=== PATIENT | male | born 1955 | race Caucasian/White ===

== ENCOUNTER 2018-07-01 14:42 | Inpatient (IN) | payer OTHER ==
--- NOTE | 2018-07-01 15:09 | PDOC ---
Rapid Medical Evaluation Time Seen by Provider: 07/01/18 14:58 Medical Evaluation: Allergies Allergy/AdvReac Type Severity Reaction Status Date / Time Calcium Channel Blocking Allergy Severe Swelling Verified 07/01/18 14:58 Agent Dilt hydralazine Allergy Severe Swelling Verified 07/01/18 14:58 strawberry Allergy Severe Swelling Verified 07/01/18 14:58 Vital Signs Temp Pulse Resp BP Pulse Ox 97.7 F 89 18 220/108 H 77 L 07/01/18 14:51 07/01/18 14:51 07/01/18 14:51 07/01/18 14:51 07/01/18 14:51 07/01/18 15:05 Pt presents to the ED with c/o: sob, lower ext edema, fina chest aching x 2 days , No chf, anemia, GIB, or copd hx Pt on brief exam: noted dyspnea, decreased BS to rt base otherwise LCTA, pale conjunctiva, 3+ pitting edema fina, o2 sat 79% on RA Pt ordered for: o2 NRB, went directly to main ED pt to proceed to the ED Discharge Disposition - Diagnosis Dyspnea - Referrals - Patient Instructions - Post Discharge Activity
[2018-07-01] MEDS ORDERED: FUROSEMIDE 40 MG/4 ML INJECTABLE VIAL IVPUSH ONE (15:17)
[2018-07-01] MEDS ORDERED: NITROGLYCERIN SUBLINGUAL 1/150 0.4 MG TAB SL ONE (15:17)
[2018-07-01] MEDS ORDERED: FUROSEMIDE 40 MG/4 ML INJECTABLE VIAL ONE (15:21)
[2018-07-01] MEDS ORDERED: NITROGLYCERIN SUBLINGUAL 1/150 0.4 MG TAB ONE (15:21)
[2018-07-01] MEDS ORDERED: NITROGLYCERIN 25MG/D5W 250ML 25 MG/250 ML ML IVPB ONE (15:22)
[2018-07-01] MEDS ORDERED: NITROGLYCERIN 25MG/D5W 250ML 25 MG/250 ML ML IVPB SCH (15:30)
--- NOTE | 2018-07-01 15:40 | PDOC ---
History of Present Illness - General Chief Complaint: Shortness of Breath Stated Complaint: Shortness of Breath Time Seen by Provider: 07/01/18 14:58 History Source: Patient, Family Exam Limitations: No Limitations - History of Present Illness Initial Comments: 07/01/18 15:40 62M with a PMH of HTN, DM, on lasix (w/o CHF diagnosis) who presents to the ED complaining of SOB. The patient states that he's had worsening SOB for 2 days with orthopnea and b/l LE edema. He also admits to chest pain that is across his diaphragm. He cannot provide any more information regarding the chest pain. He denies fever, chills, nausea, vomiting, abdominal pain. Past History - Past Medical History Allergies/Adverse Reactions: Allergies Allergy/AdvReac Type Severity Reaction Status Date / Time Calcium Channel Blocking Allergy Severe Swelling Verified 07/01/18 17:16 Agent Dilt hydralazine Allergy Severe Swelling Verified 07/01/18 17:16 strawberry Allergy Severe Swelling Verified 07/01/18 17:16 Home Medications: Ambulatory Orders Aspirin 81 mg PO DAILY 07/01/18 Clopidogrel Bisulfate [Clopidogrel] 75 mg PO DAILY 07/01/18 Finasteride 5 mg PO DAILY 07/01/18 Furosemide [Lasix] 40 mg PO DAILY 07/01/18 Glimepiride 1 mg PO DAILY 07/01/18 Isosorbide Mononitrate [Isosorbide Mononitrate ER] 60 mg PO DAILY 07/01/18 Lisinopril 5 mg PO DAILY 07/01/18 Anemia: Yes COPD: No Diabetes: Yes HTN: Yes Other medical history: reflex dystrophy - Immunization History Immunization Up to Date: Yes - Suicide/Smoking/Psychosocial Hx Smoking History: Former smoker Have you smoked in the past 12 months: No Information on smoking cessation initiated: No Hx Alcohol Use: No Drug/Substance Use Hx: No Review of Systems - Review of Systems Able to Perform ROS?: Yes Comments:: 07/01/18 15:58 GENERAL/CONSTITUTIONAL: No fever or chills. No weakness. HEAD, EYES, EARS, NOSE AND THROAT: No change in vision. No ear pain or discharge. No sore throat. CARDIOVASCULAR: No chest pain, palpitations, or lightheadedness. RESPIRATORY: No cough, wheezing, shortness of breath, or hemoptysis. GASTROINTESTINAL: No nausea, vomiting, diarrhea, constipation, or abdominal pain. GENITOURINARY: No dysuria, frequency, hematuria, or change in urination. MUSCULOSKELETAL: No joint or muscle swelling or pain. No neck or back pain. SKIN: No rash or lesions. NEUROLOGIC: No headache, numbness, tingling, focal weakness, loss of consciousness, or change in strength/sensation. Is the patient limited Mosotho proficient: No *Physical Exam - Vital Signs Last Vital Signs Temp Pulse Resp BP Pulse Ox 97.7 F 89 18 220/108 H 77 L 07/01/18 14:51 07/01/18 14:51 07/01/18 14:51 07/01/18 14:51 07/01/18 14:51 - Physical Exam Comments: 07/01/18 17:13 GENERAL: Well developed, well nourished. Awake and alert. Mildly uncomfortable appearing. HEENT: Normocephalic, atraumatic. Hearing grossly normal. Moist mucous membranes. PERRLA, EOMI. No conjunctival pallor. Sclera are non-icteric. NECK: Supple. Full ROM. No JVD. CARDIOVASCULAR: Regular rate and rhythm. No murmurs, rubs, or gallops. PULMONARY: Speaking in 4-5 word sentences. Decreased lung sounds in b/l lobes. Crackles in L lung. ABDOMINAL: Soft. Non-tender. Non-distended. No rebound or guarding. MUSCULOSKELETAL: Normal range of motion at all joints. No bony deformities or tenderness. EXTREMITIES: No cyanosis. No clubbing. 4+ pitting edema in b/l LE. No calf tenderness or swelling. SKIN: Warm and dry. Normal capillary refill. No rashes. No jaundice. NEUROLOGICAL: Alert, awake, appropriate. Cranial nerves 2-12 intact. Normal speech. Gait is normal without ataxia. PSYCHIATRIC: Cooperative. Good eye contact. Appropriate mood and affect. ED Treatment Course - LABORATORY CBC & Chemistry Diagram: 07/01/18 15:25 07/01/18 15:25 - RADIOLOGY Radiology Studies Ordered: Category Date Time Status CHEST X-RAY PORTABLE* [RAD] Stat Radiology 07/01/18 15:17 Ordered - Medications Given in the ED: ED Medications Discontinued Medications Generic Name Dose Route Start Last Admin Trade Name Freq PRN Reason Stop Dose Admin Furosemide 80 mg 07/01/18 15:17 07/01/18 15:30 Lasix Injection - IVPUSH 07/01/18 15:18 80 mg ONCE ONE Administration Nitroglycerin 0.8 mg 07/01/18 15:17 07/01/18 15:30 Nitrostat - SL 07/01/18 15:18 0.8 mg ONCE ONE Administration Medical Decision Making - Medical Decision Making 07/01/18 16:41 62M with a PMH of HTN and DM, also on lasix, who presents with SOB, decreased lung sounds in b/l lung sousa with b/l lower extremity swelling and HTNsive BP. Pt brought into room 10 immediately, Bipap ordered, lasix and nitro given. Pt currently comfortable on nitro drip with BP improving. POCUS showed b/l lung sliding w/ b-lines and fluid bilaterally in lower lung sousa. 07/01/18 16:44 Case d/w Dr. Melgoza, cardiology, who agrees with plan. Dr. Parr paged for admission. 07/01/18 17:[address] Parr for admission. Titrating nitro to adequate BP. *DC/Admit/Observation/Transfer Diagnosis at time of Disposition: Dyspnea Qualifiers: Dyspnea type: other forms of dyspnea Qualified Code(s): R06.09 - Other forms of dyspnea CHF (congestive heart failure) Qualifiers: Heart failure type: other Qualified Code(s): I50.9 - Heart failure, unspecified - Discharge Dispostion Condition at time of disposition: Guarded Decision to Admit order: Yes - Referrals - Patient Instructions - Post Discharge Activity
[2018-07-01 15:45] LABS: BASO % 0.5 % (0-2.0); EOS % 1.4 % (0-4.5); HEMATOCRIT 32.3 % (35.4-49); HEMOGLOBIN 11.1 GM/dL (11.7-16.9); LYMPH % 8.2 % (8-40); MCH 30.1 pg (25.7-33.7); MCHC 34.5 g/dl (32.0-35.9); MEAN CELL VOLUME 87.3 fl (80-96); MEAN PLT VOLUME 8.4 fl (7.5-11.1); MONO % 4.4 % (3.8-10.2); NEUT % 85.5 % (42.8-82.8); PLATELET COUNT 305 K/MM3 (134-434); RDW 14.6 % (11.9-15.9); WHITE BLOOD COUNT 10.6 K/mm3 (4.0-10.0)
--- NOTE | 2018-07-01 15:59 | PDOC ---
History of Present Illness - General Chief Complaint: Shortness of Breath Stated Complaint: Shortness of Breath Time Seen by Provider: 07/01/18 14:58 History Source: Patient, Family Past History - Past Medical History Allergies/Adverse Reactions: Allergies Allergy/AdvReac Type Severity Reaction Status Date / Time Calcium Channel Blocking Allergy Severe Swelling Verified 07/01/18 14:58 Agent Dilt hydralazine Allergy Severe Swelling Verified 07/01/18 14:58 strawberry Allergy Severe Swelling Verified 07/01/18 14:58 Anemia: Yes COPD: No Diabetes: Yes HTN: Yes Other medical history: reflex dystrophy - Immunization History Immunization Up to Date: Yes - Suicide/Smoking/Psychosocial Hx Smoking History: Former smoker Have you smoked in the past 12 months: No Information on smoking cessation initiated: No Hx Alcohol Use: No Drug/Substance Use Hx: No *Physical Exam - Vital Signs Last Vital Signs Temp Pulse Resp BP Pulse Ox 97.7 F 89 18 220/108 H 96 07/01/18 14:51 07/01/18 14:51 07/01/18 14:51 07/01/18 14:51 07/01/18 15:00 ED Treatment Course - LABORATORY CBC & Chemistry Diagram: 07/01/18 15:25 07/01/18 15:25 - ADDITIONAL ORDERS Additional order review: 07/01/18 15:25 RBC 3.70 L MCV 87.3 MCHC 34.5 RDW 14.6 MPV 8.4 Neutrophils % 85.5 H Lymphocytes % 8.2 Monocytes % 4.4 Eosinophils % 1.4 Basophils % 0.5 - Medications Given in the ED: ED Medications Discontinued Medications Generic Name Dose Route Start Last Admin Trade Name Anthony PRN Reason Stop Dose Admin Furosemide 80 mg 07/01/18 15:17 07/01/18 15:30 Lasix Injection - IVPUSH 07/01/18 15:18 80 mg ONCE ONE Administration Nitroglycerin 0.8 mg 07/01/18 15:17 07/01/18 15:30 Nitrostat - SL 07/01/18 15:18 0.8 mg ONCE ONE Administration Medical Decision Making - Medical Decision Making 07/01/18 15:56 62-year-old male presents with 3 days of increasing shortness of breath. Patient does not have a primary care doctor, but does go to [facility]. He was admitted. We have asked the hospital in April for emergent hypertensive episodes. Upon arrival, the patient had respiratory distress and was immediately placed on the BiPAP, nitroglycerin drip was started. He was given IV diuretics. 07/01/18 15:59 *DC/Admit/Observation/Transfer Diagnosis at time of Disposition: Dyspnea - Referrals - Patient Instructions - Post Discharge Activity
[2018-07-01 16:03] LABS: INR 1.13 (0.83-1.09); PROTHROMBIN TIME (PATIENT) 13.4 SEC (9.7-13.0)
--- NOTE | 2018-07-01 16:10 | PDOC ---
*Physical Exam - Vital Signs Last Vital Signs Temp Pulse Resp BP Pulse Ox 97.7 F 89 18 220/108 H 96 07/01/18 14:51 07/01/18 14:51 07/01/18 14:51 07/01/18 14:51 07/01/18 15:00 ED Treatment Course - LABORATORY CBC & Chemistry Diagram: 07/01/18 15:25 07/01/18 15:25 - ADDITIONAL ORDERS Additional order review: 07/01/18 15:25 RBC 3.70 L MCV 87.3 MCHC 34.5 RDW 14.6 MPV 8.4 Neutrophils % 85.5 H Lymphocytes % 8.2 Monocytes % 4.4 Eosinophils % 1.4 Basophils % 0.5 - Medications Given in the ED: ED Medications Discontinued Medications Generic Name Dose Route Start Last Admin Trade Name Joaquinq PRN Reason Stop Dose Admin Furosemide 80 mg 07/01/18 15:17 07/01/18 15:30 Lasix Injection - IVPUSH 07/01/18 15:18 80 mg ONCE ONE Administration Nitroglycerin 0.8 mg 07/01/18 15:17 07/01/18 15:30 Nitrostat - SL 07/01/18 15:18 0.8 mg ONCE ONE Administration Medical Decision Making - Medical Decision Making 07/01/18 16:30 62-year-old male presents with congestive heart failure and was placed on BiPAP upon arrival. He received IV diuretics and will be admitted. Past medical history chronic venous stasis, CHF, pleural effusion controlled hypertension. Plan continue BiPAP, posible ntg gtt for BP control,chest x-ray, cbc, chemistries, cardiac enzymes, BNP and admission 07/01/18 17:29 troponin is 0.27, normal have to be trended. BNP is greater than 10,000. In reviewing his chemistries he has renal insufficiency, BUN of 36, creatinine 1.4, hyperglycemia 07/01/18 17:39 diagnosis : chf,hypertensive urgency,anemia,renal insufficiency,chronic venous stasis ,diabetes 07/01/18 17:47 pt's BP is improving and is now 208/[address]r *DC/Admit/Observation/Transfer Diagnosis at time of Disposition: Dyspnea - Referrals - Patient Instructions - Post Discharge Activity
--- NOTE | 2018-07-01 16:10 | PDOC ---
Documentation entered by Eliza Elizalde SCRIBE, acting as scribe for Patrick Mcelroy MD. Patrick Mcelroy MD: This documentation has been prepared by the Fide kenny Daisy, SCRIBE, under my direction and personally reviewed by me in its entirety. I confirm that the documentation accurately reflects all work, treatment, procedures, and medical decision making performed by me. Attending Attestation - Resident Resident Name: [email or web address] - ED Attending Attestation I have performed the following: I have examined & evaluated the patient, The case was reviewed & discussed with the resident, I agree w/resident's findings & plan - HPI HPI: 07/01/18 15:36 62-year-old male with history of CHF presents with progressive dyspnea and cough over the weekend. no cp but reports epigastric discomfort, none currently. compliant with meds, denies f/c. - Physicial Exam PE: 07/01/18 15:37 Hypertensive at triage, hypoxic Otherwise seated upright in stretcher, speaking in half sentences, well- appearing despite his vitals Heart is regular, 2/6 systolic ejection murmur Right basilar crackles, distant breath sounds throughout, no wheezing Morbidly obese, no abdominal tenderness Chronic bilateral leg edema with venous stasis changes - Critical Care Time Total Critical Care Time: 45 Critical Care Statement: The care of this patient involved high complexity decision making to prevent further life threatening deterioration of the patient 's condition and/or to evaluate & treat vital organ system(s) failure or risk of failure. - Medical Decision Making 07/01/18 15:37 62-year-old male with history of CHF presents with progressive pulmonary edema over the last 2 days, hypertensive and hypoxic. Seen immediately upon arrival, IV access obtained, supplemental oxygen provided , IV diuresis BiPAP for respiratory support nitro drip Labs, stat EKG, chest x-ray Admission to telemetry
[2018-07-01 16:14] LABS: VENOUS PC02 41.9 mmHg (41-51); VENOUS PH 7.34 (7.31-7.41); VENOUS PO2 37.3 mmHg (30-40)
[2018-07-01 16:23] LABS: ALBUMIN 3.3 g/dl (3.4-5.0); ALK PHOS 97 U/L (45-117); ANION GAP 6 MMOL/L (8-16); BILIRUBIN,TOTAL 0.8 mg/dL (0.2-1); BLOOD UREA NITROGEN 36 mg/dL (7-18); CALCIUM 8.5 mg/dL (8.5-10.1); CHLORIDE 108 mmol/L (98-107); CO2 23 mmol/L (21-32); CREATININE 1.4 mg/dL (0.55-1.3); GLUCOSE,RANDOM 211 mg/dL (74-106); MAGNESIUM 2.2 mg/dL (1.8-2.4); N-TERMINAL BNP 10294.4 pg/ml (5-125); POTASSIUM 4.4 mmol/L (3.5-5.1); SGOT/AST 28 U/L (15-37); SGPT/ALT 21 U/L (13-61); SODIUM 137 mmol/L (136-145); TOT PROT 6.5 g/dl (6.4-8.2)
--- NOTE | 2018-07-01 18:48 | HP ---
Admitting History and Physical - Primary Care Physician PCP: Isael Parr - Admission History of Present Illness: 62M with a PMH of HTN, DM, previous stroke without residual deficits who presents to the ED complaining of progressive SOB, MCNEAL, orthopnea, chest tightness and b/l LE edema without near or true syncope, palpitations. Found to be hypertensive, hypoxic and congestion on CXR. He reports being instructed to stop labetolol due to LE edema and URI symptoms, otherwise reports diet and medication compliance, denies NSAID use. Placed on bipap, started IV diuresis and placed on NTG gtt. He usually sees [facility] for f/u. 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 Cardiovascular: Yes: HTN Endocrine: Yes: Diabetes Mellitus - Smoking History Smoking history: Former smoker Have you smoked in the past 12 months: No - Alcohol/Substance Use Hx Alcohol Use: No Home Medications - Allergies Allergies/Adverse Reactions: Allergies Allergy/AdvReac Type Severity Reaction Status Date / Time Calcium Channel Blocking Allergy Severe Swelling Verified 07/01/18 17:16 Agent Dilt hydralazine Allergy Severe Swelling Verified 07/01/18 17:16 strawberry Allergy Severe Swelling Verified 07/01/18 17:16 - Home Medications Home Medications: Ambulatory Orders Aspirin 81 mg PO DAILY 07/01/18 Clopidogrel Bisulfate [Clopidogrel] 75 mg PO DAILY 07/01/18 Finasteride 5 mg PO DAILY 07/01/18 Furosemide [Lasix] 40 mg PO DAILY 07/01/18 Glimepiride 1 mg PO DAILY 07/01/18 Isosorbide Mononitrate [Isosorbide Mononitrate ER] 60 mg PO DAILY 07/01/18 Lisinopril 5 mg PO DAILY 07/01/18 Clonidine HCl [Catapres] 0.2 mg PO BID 07/02/18 Physical Examination Vital Signs: Vital Signs Temperature 98.5 F 07/01/18 18:10 Pulse Rate 64 07/01/18 18:10 Respiratory Rate 07/01/18 18:10 Blood Pressure 198/93 H 07/01/18 18:10 O2 Sat by Pulse Oximetry (%) 100 07/01/18 18:10 Constitutional: Yes: No Distress HENT: Yes: Atraumatic Neck: Yes: Supple Cardiovascular: Yes: Regular Rate and Rhythm Respiratory: Yes: Rhonchi, Wheezes Gastrointestinal: Yes: Normal Bowel Sounds Extremities: Yes: WNL Edema: Yes Edema: LLE: 3+, RLE: 3+ Neurological: Yes: Alert, Oriented Labs: CBC, BMP 07/01/18 15:25 07/01/18 15:25 Imaging - Results X-ray: Report Reviewed Problem List - Problems (1) Dyspnea Assessment/Plan: on diuretics monitor renal functions Code(s): R06.00 - DYSPNEA, UNSPECIFIED (2) Acute diastolic (congestive) heart failure Assessment/Plan: continue [facility] cardiology on board Code(s): I50.31 - ACUTE DIASTOLIC (CONGESTIVE) HEART FAILURE (3) CKD (chronic kidney disease) Assessment/Plan: monitor renal consult reviewed Code(s): N18.9 - CHRONIC KIDNEY DISEASE, UNSPECIFIED Qualifiers: Chronic kidney disease stage: stage 2 (mild) Qualified Code(s): N18.2 - Chronic kidney disease, stage 2 (mild) (4) Type 2 diabetes mellitus Assessment/Plan: on meds monitor bgms Code(s): E11.9 - TYPE 2 DIABETES MELLITUS WITHOUT COMPLICATIONS Qualifiers: Diabetes mellitus clinical researcher insulin use: without clinical researcher use (5) Hypertensive emergency Assessment/Plan: on meds monitor Code(s): I16.1 - HYPERTENSIVE EMERGENCY (6) Subendocardial ischemia Assessment/Plan: fu troponins on tele Code(s): I24.8 - OTHER FORMS OF ACUTE ISCHEMIC HEART DISEASE Assessment/Plan Laboratory Tests 07/01/18 07/01/18 07/01/18 15:25 15:25 15:25 WBC 10.6 H RBC 3.70 L Hgb 11.1 L Hct 32.3 L MCV 87.3 MCH 30.1 MCHC 34.5 RDW 14.6 Plt Count 305 MPV 8.4 Absolute Neuts (auto) 9.0 H Neutrophils % 85.5 H Lymphocytes % 8.2 Monocytes % 4.4 Eosinophils % 1.4 Basophils % 0.5 Nucleated RBC % 0 PT with INR 13.40 H INR 1.13 H VBG pH 7.34 POC VBG pCO2 41.9 POC VBG pO2 37.3 VBG HCO3 21.9 L VBG O2 Sat (Joanne) 63.9 L VBG Base Excess -3.2 L Sodium Potassium Chloride Carbon Dioxide Anion Gap BUN Creatinine Creat Clearance w eGFR Random Glucose Calcium Magnesium Total Bilirubin AST ALT Alkaline Phosphatase Creatine Kinase Creatine Kinase Index CK-MB (CK-2) Troponin I B-Natriuretic Peptide Total Protein Albumin 07/01/18 15:25 WBC RBC Hgb Hct MCV MCH MCHC RDW Plt Count MPV Absolute Neuts (auto) Neutrophils % Lymphocytes % Monocytes % Eosinophils % Basophils % Nucleated RBC % PT with INR INR VBG pH POC VBG pCO2 POC VBG pO2 VBG HCO3 VBG O2 Sat (Joanne) VBG Base Excess Sodium 137 Potassium 4.4 Chloride 108 H Carbon Dioxide 23 Anion Gap 6 L BUN 36 H Creatinine 1.4 H Creat Clearance w eGFR 51.35 Random Glucose 211 H Calcium 8.5 Magnesium 2.2 Total Bilirubin 0.8 AST 28 ALT 21 Alkaline Phosphatase 97 Creatine Kinase 526 H Creatine Kinase Index 2.0 CK-MB (CK-2) 10.7 H Troponin I 0.27 H B-Natriuretic Peptide 24837.4 H Total Protein 6.5 Albumin 3.3 L Active Medications Generic Name Dose Route Start Last Admin Trade Name Anthony PRN Reason Stop Dose Admin Nitroglycerin/Dextrose 25 mg in 250 mls @ 6 mls/hr 07/01/18 15:30 07/01/18 17 :18 Nitroglycerin 25mg/D5w 250ml IVPB 41.66 mcg/min TITR CHERI 25 mls/hr Titration 10 MCG/MIN Active Medications Generic Name Dose Route Start Last Admin Trade Name Anthony PRN Reason Stop Dose Admin Aspirin 81 mg 07/02/18 10:00 07/02/18 10:15 Asa - PO 81 mg DAILY CHERI Administration Carvedilol 25 mg 07/02/18 10:00 07/02/18 10:15 Coreg - PO 25 mg BID CHERI Administration Clonidine 0.1 mg 07/02/18 10:00 07/02/18 10:15 Catapres - PO 0.1 mg BID CHERI Administration Clopidogrel Bisulfate 75 mg 07/02/18 10:00 07/02/18 10:15 Plavix - PO 75 mg DAILY CHERI Administration Finasteride 5 mg 07/02/18 10:00 07/02/18 10:15 Proscar - PO 5 mg DAILY CHERI Administration Furosemide 40 mg 07/02/18 06:00 07/02/18 13:43 Lasix Injection - IVPUSH 40 mg BIDLASIX CHERI Administration Glimepiride 1 mg 07/02/18 07:00 07/02/18 06:56 Amaryl - PO 1 mg DAILY@0700 CHERI Administration Heparin Sodium (Porcine) 5,000 unit 07/01/18 22:00 07/02/18 10:15 Heparin - SQ 5,000 unit BID CHERI Administration Isosorbide Mononitrate 60 mg 07/02/18 10:00 07/02/18 10:15 Imdur - PO 60 mg DAILY CHERI Administration Valsartan 80 mg 07/02/18 10:00 07/02/18 10:15 Diovan - PO 80 mg BID CHERI Administration
--- NOTE | 2018-07-01 19:01 | CON.CARD ---
Consult Consult Specialty:: Cardiology Referred by:: Isael Parr MD Reason for Consultation:: Acute diastolic heart failure - History of Present Illness Chief Complaint: Dyspnea History of Present Illness: 62M with a PMH of HTN, DM, previous stroke without residual deficits who presents to the ED complaining of progressive SOB, MCNEAL, orthopnea, chest tightness and b/l LE edema without near or true syncope, palpitations. Found to be hypertensive, hypoxic and congestion on CXR. He reports being instructed to stop labetolol due to LE edema and URI symptoms, otherwise reports diet and medication compliance, denies NSAID use. Placed on bipap, started IV diuresis and placed on NTG gtt. He usually sees [facility] for f/u. - History Source History Provided By: Patient Limitations to Obtaining History: No Limitations - Alcohol/Substance Use Hx Alcohol Use: No - Smoking History Smoking history: Former smoker Have you smoked in the past 12 months: No Home Medications - Allergies Allergies/Adverse Reactions: Allergies Allergy/AdvReac Type Severity Reaction Status Date / Time Calcium Channel Blocking Allergy Severe Swelling Verified 07/01/18 17:16 Agent Dilt hydralazine Allergy Severe Swelling Verified 07/01/18 17:16 strawberry Allergy Severe Swelling Verified 07/01/18 17:16 - Home Medications Home Medications: Ambulatory Orders Aspirin 81 mg PO DAILY 07/01/18 Clopidogrel Bisulfate [Clopidogrel] 75 mg PO DAILY 07/01/18 Finasteride 5 mg PO DAILY 07/01/18 Furosemide [Lasix] 40 mg PO DAILY 07/01/18 Glimepiride 1 mg PO DAILY 07/01/18 Isosorbide Mononitrate [Isosorbide Mononitrate ER] 60 mg PO DAILY 07/01/18 Lisinopril 5 mg PO DAILY 07/01/18 Review of Systems - Review of Systems Cardiovascular: reports: Edema, Shortness of Breath Respiratory: reports: Exercise Intolerance, Orthopnea, SOB, SOB on Exertion Vital Signs: Vital Signs Temperature 98.5 F 07/01/18 18:10 Pulse Rate 64 07/01/18 18:10 Respiratory Rate 07/01/18 18:10 Blood Pressure 198/93 H 07/01/18 18:10 O2 Sat by Pulse Oximetry (%) 100 07/01/18 18:10 Constitutional: Yes: No Distress, Calm Neck: Yes: Supple Respiratory: Yes: Regular, Diminished, On BiPap, Rales Gastrointestinal: Yes: Normal Bowel Sounds, Soft, Abdomen, Obese Cardiovascular: Yes: Regular Rate and Rhythm JVD: No Carotid Bruit: No Heart Sounds: Yes: S1, S2 Murmur: Yes: Systolic Murmur, Grade 2 Edema: Yes Edema: LLE: 2+, RLE: 2+ Integumentary: Yes: Venous Stasis Changes - Other Data Labs, Other Data: CBC, BMP 07/01/18 15:25 07/01/18 15:25 INR, PTT INR 1.13 (0.83-1.09) H 07/01/18 15:25 Troponin, BNP 07/01/18 15:25 Troponin I 0.27 H B-Natriuretic Peptide 63472.4 H Troponin, BNP 07/01/18 15:25 Troponin I 0.27 H B-Natriuretic Peptide 00870.4 H NSR @ [address] 1[address] deg AVB Imaging - Results Chest X-ray: Report Reviewed (Congestion) Problem List - Problems (1) Acute diastolic (congestive) heart failure Code(s): I50.31 - ACUTE DIASTOLIC (CONGESTIVE) HEART FAILURE (2) Hypertensive emergency Code(s): I16.1 - HYPERTENSIVE EMERGENCY (3) Subendocardial ischemia Code(s): I24.8 - OTHER FORMS OF ACUTE ISCHEMIC HEART DISEASE (4) Type 2 diabetes mellitus Code(s): E11.9 - TYPE 2 DIABETES MELLITUS WITHOUT COMPLICATIONS Qualifiers: 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 Acute hypoxic respiratory failure referable to 2. Acute diastolic heart failure with subendocardial ischemic injury 3. Hypertensive emergency 4. Type 2 DM 5. H/o stroke 6. CKD P:1. IV diuresis with monitor diuretic response, renal fxn and electrolytes 2. Echocardiogram to assess ventricular and valve fxnm check TSH, lipid panel, Ha1c, trend troponins to document peak 3. Continue ASA 81 qd, lisinopril 5 qd, Plavix 75 qd, Imdur 60 qd, resume labetolol 200 bid with uptitration as hemodynamics tolerate, wean off NTG gtt 4. Thank you for consultative opportunity
[2018-07-01] MEDS ORDERED: LISINOPRIL 5 MG TABLET (FP) PO SCH (19:30)
[2018-07-01] MEDS ORDERED: LISINOPRIL 5 MG TABLET (FP) ONE (19:49)
[2018-07-01] MEDS ORDERED: LABETALOL HCL 200 MG TABLET (FP) PO SCH (22:00)
[2018-07-02] MEDS: HEPARIN NA (PORCINE) 5,000 UNITS/ML 1ML VIAL SQ SCH ×3 (00:21→21:27)
[2018-07-02] MEDS ORDERED: LABETALOL HCL 200 MG TABLET (FP) PO ONE (03:00)
[2018-07-02] MEDS ORDERED: LISINOPRIL 10 MG TABLET (FP) PO ONE (03:00)
[2018-07-02] MEDS ORDERED: cloNIDine HCL 0.1 MG TABLET PO ONE (04:15)
[2018-07-02] MEDS ORDERED: PT OWN MED DRAWER 7, Y5N ONE (05:36)
[2018-07-02] MEDS: GLIMEPIRIDE 1 MG TABLET (FP) PO SCH (06:56)
[2018-07-02] MEDS: FUROSEMIDE 40 MG/4 ML INJECTABLE VIAL IVPUSH SCH ×2 (06:56→13:43)
[2018-07-02 07:40] LABS: BASO % 0.6 % (0-2.0); EOS % 1.8 % (0-4.5); HEMATOCRIT 28.3 % (35.4-49); HEMOGLOBIN 9.8 GM/dL (11.7-16.9); MCH 30.2 pg (25.7-33.7); MCHC 34.8 g/dl (32.0-35.9); MEAN PLT VOLUME 8.4 fl (7.5-11.1); MONO % 6.5 % (3.8-10.2); NEUT % 77.1 % (42.8-82.8); PLATELET COUNT 280 K/MM3 (134-434); RBC 3.25 M/mm3 (4.00-5.60); RDW 14.4 % (11.9-15.9)
[2018-07-02 07:59] LABS: ALBUMIN 3.1 g/dl (3.4-5.0); ALK PHOS 84 U/L (45-117); ANION GAP 7 MMOL/L (8-16); BILIRUBIN,TOTAL 0.7 mg/dL (0.2-1); BLOOD UREA NITROGEN 37 mg/dL (7-18); CALCIUM 8.1 mg/dL (8.5-10.1); CHLORIDE 109 mmol/L (98-107); CHOLESTEROL 139 mg/dL (50-200); CO2 24 mmol/L (21-32); CREATININE 1.6 mg/dL (0.55-1.3); GLUCOSE,RANDOM 147 mg/dL (74-106); HDL CHOLESTEROL 44 mg/dL (40-60); POTASSIUM 4.3 mmol/L (3.5-5.1); SGOT/AST 24 U/L (15-37); SGPT/ALT 18 U/L (13-61); SODIUM 140 mmol/L (136-145); TOT PROT 5.9 g/dl (6.4-8.2); TRIGLYCERIDES 86 mg/dL (0-150)
--- NOTE | 2018-07-02 09:03 | PN ---
Progress Note (short form) - Note Progress Note: Chief Complaint: Events noted notes reviewed, reports dyspnea improved, denies any chest discomfort, remains hypertensive, hospitalized at [facility] recently History of Present Illness: Seen and examined on telemetry. Events noted notes reviewed, reports dyspnea improved, denies any chest discomfort, remains hypertensive, hospitalized at [facility] recently To obtain above noted hospitalization records - Current Medication List Current Medications Aspirin (Asa -) 81 mg PO DAILY [facility] Clopidogrel Bisulfate (Plavix -) 75 mg PO DAILY [facility] Finasteride (Proscar -) 5 mg PO DAILY [facility] Furosemide (Lasix Injection -) 40 mg IVPUSH BIDLASIX [facility] Last Admin: 07/02/18 06:56 Dose: 40 mg Glimepiride (Amaryl -) 1 mg PO DAILY@0700 [facility] Last Admin: 07/02/18 06:56 Dose: 1 mg Heparin Sodium (Porcine) (Heparin -) 5,000 unit SQ BID [facility] Last Admin: 07/02/18 00:21 Dose: 5,000 unit Nitroglycerin/Dextrose (Nitroglycerin 25mg/D5w 250ml) 25 mg in 250 mls @ 6 mls/ hr IVPB TITR [facility] Last Titration: 07/01/18 17:18 Dose: 41.66 mcg/min, 25 mls/hr Isosorbide Mononitrate (Imdur -) 60 mg PO DAILY [facility] Labetalol HCl (Normodyne -) 200 mg PO BID [facility] Last Admin: 07/02/18 00:21 Dose: 200 mg Lisinopril (Prinivil) 5 mg PO DAILY [facility] Last Admin: 07/01/18 20:25 Dose: 5 mg Home Medications Medication Instructions Recorded Aspirin 81 mg PO DAILY 07/01/18 Clopidogrel Bisulfate [Clopidogrel] 75 mg PO DAILY 07/01/18 Finasteride 5 mg PO DAILY 07/01/18 Furosemide [Lasix] 40 mg PO DAILY 07/01/18 Glimepiride 1 mg PO DAILY 07/01/18 Isosorbide Mononitrate [Isosorbide 60 mg PO DAILY 07/01/18 Mononitrate ER] Lisinopril 5 mg PO DAILY 07/01/18 Clonidine HCl [Catapres] 0.2 mg PO BID 07/02/18 - Review of Systems Cardiovascular: As noted above Respiratory: denies: denies: Cough or Sputum Production Gastrointestinal: denies: Nausea, Vomiting, Diarrhea or Constipation Musculoskeletal: No Symptoms Reported Endocrine: No Symptoms Reported - Objective Vital Signs: Last Vital Signs Temp Pulse Resp BP Pulse Ox 98.3 F 54 L 20 186/87 H 99 07/02/18 06:00 07/02/18 06:00 07/02/18 06:00 07/02/18 06:00 07/02/18 07:35 Intake & Output 06/29/18 06/30/18 07/01/18 07/02/18 23:59 23:59 23:59 23:59 Output Total 600 Balance -600 Weight 325 lb Neck: Supple Negative JVD No Bruit Cardiovascular: S1 S2 Regular Rate Rhythm Respiratory: Diminished Breath Sounds Bilaterally Gastrointestinal: Soft Benign Normal Bowel Sounds Ext: Negative Edema Labs: CBC, BMP 07/02/18 05:30 07/02/18 05:30 Hepatic Panel Total Bilirubin 0.7 mg/dL (0.2-1) 07/02/18 05:30 AST 24 U/L (15-37) 07/02/18 05:30 ALT 18 U/L (13-61) 07/02/18 05:30 Alkaline Phosphatase 84 U/L (45-117) 07/02/18 05:30 Albumin 3.1 g/dl (3.4-5.0) L 07/02/18 05:30 INR, PTT INR 1.13 (0.83-1.09) H 07/01/18 15:25 Assessment/Plan ASSESSMENT: 1. Acute hypoxic respiratory failure referable to 2. Acute on chronic class II NYHA classification LV failure related to diastolic heart failure, resolving 3. 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 Hypertensive urgency, labile blood pressure 5. DM 6. History of stroke 7. CKD PLAN: 1. IV Lasix with close monitoring of renal function and electrolytes 2. Add Coreg, reports side effects to Labetolol therapy 3. Add ARBS and D/C ACEI with close monitoring of renal function 4. Continue Clonidine 5. Add statins 6. Taper off IV nitro and continue Imdur for now 7. Continue ASA and Plavix 8. Echocardiography to assess ventricular and valve functions 9. Obtain records from recent hospitalization Above was reviewed in detail with the patient Javier Mayer M.D.
[2018-07-02] MEDS ORDERED: FUROSEMIDE 40 MG/4 ML INJECTABLE VIAL IVPUSH SCH (10:00)
[2018-07-02] MEDS: ASPIRIN 81 MG CHEWABLE TABLETS PO SCH (10:15)
[2018-07-02] MEDS: CLOPIDOGREL BISULFATE 75 MG TABLET (FP) PO SCH (10:15)
[2018-07-02] MEDS: FINASTERIDE 5 MG TABLET (FP) PO SCH (10:15)
[2018-07-02] MEDS: CARVEDILOL 25 MG TABLET (FP) PO SCH ×2 (10:15→21:26)
[2018-07-02] MEDS: ISOSORBIDE MONONITRATE 60 MG TAB.SR.24H (FP) PO SCH (10:15)
[2018-07-02] MEDS: cloNIDine HCL 0.1 MG TABLET PO SCH ×2 (10:15→21:26)
[2018-07-02] MEDS: VALSARTAN 80 MG TABLET (UD) PO SCH ×2 (10:15→21:26)
--- NOTE | 2018-07-02 11:29 | ECHO ---
Version: 1 Name: BRAEDEN MARSHALL Exam: Adult Echocardiogram Study Date: 07/02/2018, 9:23 AM Age: 62 Years MMode/2D Measurements & Calculations IVSd: 1.28 cm LVIDs: 3.4 cm LVIDd: 5.3 cm LVPWd: 1.10 cm LVOT diam: 2.30 cm Ao root diam: 3.3 cm LA dimension: 4.1 cm Doppler Measurements & Calculations MV E max mayco: 94.8 cm/sec Med E/e': 20.6 MV A max mayco: 98.7 cm/sec Med Peak E' Mayco: 4.6 cm/sec MV E/A: 0.96 Lat E/e': 13.1 Lat Peak E' Mayco: 7.2 cm/sec Ao max P.0 mmHg HIRAL(I,D): 3.0 cm Ao mean P.5 mmHg LV V1 mean: 92.3 cm/sec Ao V2 max: 158.0 cm/sec LV V1 mean P.8 mmHg PI end-d mayco: 132.7 cm/sec TR max mayco: 389.1 cm/sec TR max P.6 mmHg Left Ventricle Borderline for concentric left ventricular hypertrophy. Left ventricular systolic function is normal . Ejection Fraction = 60-65%. The transmitral spectral Doppler flow pattern is suggestive of impaired LV relaxation. Right Ventricle The right ventricle is normal in size and function. Atria The left atrium is mildly dilated. Right atrial size is normal. Mitral Valve The mitral valve is grossly normal. There is trace mitral regurgitation. Tricuspid Valve The tricuspid valve is not well visualized, but is grossly normal. There is trace tricuspid regurgit ation. There was insufficient TR detected to calculate RV systolic pressure. Aortic Valve The aortic valve is trileaflet. No hemodynamically significant valvular aortic stenosis. Trace aorti c regurgitation. Pulmonic Valve The pulmonic valve is not well visualized. Great Vessels The aortic root is normal size. Pericardium/Pleura There is a mild pericardial effusion. No evidence of cardiac tamponade. Summary Statements Borderline for concentric left ventricular hypertrophy. Left ventricular systolic function is normal . Ejection Fraction = 60-65%. The transmitral spectral Doppler flow pattern is suggestive of impaired LV relaxation. The right ventricle is normal in size and function. The left atrium is mildly dilated. Right atrial size is normal. The aortic valve is trileaflet. No hemodynamically significant valvular aortic stenosis. The mitral valve is grossly normal. There was insufficient TR detected to calculate RV systolic pressure (One measured high TR jet maxim um velocity was not accurate to predict RVSP). There is a mild pericardial effusion. No evidence of cardiac tamponade. MD Kerri Casey07/02/2018, 10:28 AM Ordering Physician: Chavez Brito Performed By: Lacy Acosta
--- NOTE | 2018-07-02 14:18 | EKG ---
Test Reason : Blood Pressure : / mmHG Vent. Rate : 082 BPM Atrial Rate : 082 BPM P-R Int : 252 ms QRS Dur : 092 ms QT Int : 396 ms P-R-T Axes : 074 -50 063 degrees QTc Int : 462 ms SINUS RHYTHM WITH 1ST DEGREE A-V BLOCK LEFT AXIS DEVIATION SEPTAL INFARCT ABNORMAL ECG NO PREVIOUS ECGS AVAILABLE Confirmed by MD JUANA, NATALYA ([id number]) on 07/02/2018 2:18:07 PM Referred By: Confirmed By:NATALYA ARIAS MD
--- NOTE | 2018-07-02 14:24 | PN ---
Progress Note, Physician - Current Medication List Current Medications: Active Medications Aspirin (Asa -) 81 mg PO DAILY [facility] Last Admin: 07/02/18 10:15 Dose: 81 mg Carvedilol (Coreg -) 25 mg PO BID [facility] Last Admin: 07/02/18 10:15 Dose: 25 mg Clonidine (Catapres -) 0.1 mg PO BID [facility] Last Admin: 07/02/18 10:15 Dose: 0.1 mg Clopidogrel Bisulfate (Plavix -) 75 mg PO DAILY [facility] Last Admin: 07/02/18 10:15 Dose: 75 mg Finasteride (Proscar -) 5 mg PO DAILY [facility] Last Admin: 07/02/18 10:15 Dose: 5 mg Furosemide (Lasix Injection -) 40 mg IVPUSH BIDLASIX [facility] Last Admin: 07/02/18 13:43 Dose: 40 mg Glimepiride (Amaryl -) 1 mg PO DAILY@0700 [facility] Last Admin: 07/02/18 06:56 Dose: 1 mg Heparin Sodium (Porcine) (Heparin -) 5,000 unit SQ BID [facility] Last Admin: 07/02/18 10:15 Dose: 5,000 unit Isosorbide Mononitrate (Imdur -) 60 mg PO DAILY [facility] Last Admin: 07/02/18 10:15 Dose: 60 mg Valsartan (Diovan -) 80 mg PO BID [facility] Last Admin: 07/02/18 10:15 Dose: 80 mg - Objective Vital Signs: Vital Signs Temperature 98.3 F 07/02/18 06:00 Pulse Rate 54 L 07/02/18 06:00 Respiratory Rate 20 07/02/18 06:00 Blood Pressure 186/87 H 07/02/18 06:00 O2 Sat by Pulse Oximetry (%) 99 07/02/18 09:00 Constitutional: Yes: No Distress HENT: Yes: Atraumatic Neck: Yes: Supple Cardiovascular: Yes: Regular Rate and Rhythm Respiratory: Yes: Rhonchi, Wheezes Gastrointestinal: Yes: Normal Bowel Sounds Extremities: Yes: WNL Edema: No Peripheral Pulses WNL: Yes Neurological: Yes: Alert, Oriented Labs: CBC, BMP 07/02/18 05:30 07/02/18 05:30 INR, PTT INR 1.13 (0.83-1.09) H 07/01/18 15:25 Problem List - Problems (1) Dyspnea Assessment/Plan: on diuretics monitor renal functions Code(s): R06.00 - DYSPNEA, UNSPECIFIED (2) Acute diastolic (congestive) heart failure Assessment/Plan: continue [facility] cardiology on board Code(s): I50.31 - ACUTE DIASTOLIC (CONGESTIVE) HEART FAILURE (3) CKD (chronic kidney disease) Assessment/Plan: monitor will get renal consult Code(s): N18.9 - CHRONIC KIDNEY DISEASE, UNSPECIFIED Qualifiers: Chronic kidney disease stage: stage 2 (mild) Qualified Code(s): N18.2 - Chronic kidney disease, stage 2 (mild) (4) Type 2 diabetes mellitus Assessment/Plan: on meds monitor bgms Code(s): E11.9 - TYPE 2 DIABETES MELLITUS WITHOUT COMPLICATIONS Qualifiers: Diabetes mellitus usp insulin use: without manager long term care use (5) Hypertensive emergency Assessment/Plan: on meds monitor Code(s): I16.1 - HYPERTENSIVE EMERGENCY (6) Subendocardial ischemia Assessment/Plan: fu troponins on tele Code(s): I24.8 - OTHER FORMS OF ACUTE ISCHEMIC HEART DISEASE
--- NOTE | 2018-07-02 16:58 | CONSULT ---
Consult Consult Specialty:: Nephrology Reason for Consultation:: CKD - History of Present Illness Chief Complaint: lower ext edema History of Present Illness: Pt is a 62 year old male with pmhx of HTN, DM, CKD, lower ext edema, renal artery stenosis and obesity who presents to the ER with shortness of breath and lower ext edema. He was found to be hypertensive and in renal failure. He says he has history of renal failure from overdiuresis in the past that was corrected with fluids. He says he was worked up for renal artery stenosis but does not think he had a stent. He was also found to be hypertensive. he says he has had about 6 hositalizations for uncontrolled blood pressure. He denies chest pain or headache. 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 Cardio/Vascular: Yes: HTN Renal/: Yes: Renal Inusuff, Other (renal artery stenosis) Endocrine: Yes: Diabetes Mellitus - Alcohol/Substance Use Hx Alcohol Use: No - Smoking History Smoking history: Former smoker Have you smoked in the past 12 months: No Home Medications - Allergies Allergies/Adverse Reactions: Allergies Allergy/AdvReac Type Severity Reaction Status Date / Time Calcium Channel Blocking Allergy Severe Swelling Verified 07/01/18 17:16 Agent Dilt hydralazine Allergy Severe Swelling Verified 07/01/18 17:16 strawberry Allergy Severe Swelling Verified 07/01/18 17:16 - Home Medications Home Medications: Ambulatory Orders Aspirin 81 mg PO DAILY 07/01/18 Clopidogrel Bisulfate [Clopidogrel] 75 mg PO DAILY 07/01/18 Finasteride 5 mg PO DAILY 07/01/18 Furosemide [Lasix] 40 mg PO DAILY 07/01/18 Glimepiride 1 mg PO DAILY 07/01/18 Isosorbide Mononitrate [Isosorbide Mononitrate ER] 60 mg PO DAILY 07/01/18 Lisinopril 5 mg PO DAILY 07/01/18 Clonidine HCl [Catapres] 0.2 mg PO BID 07/02/18 Family Disease History - Family Disease History Family History: Denies Review of Systems - Review of Systems Constitutional: reports: Malaise. denies: Chills Eyes: reports: No Symptoms HENT: reports: No Symptoms Neck: reports: No Symptoms Cardiovascular: reports: No Symptoms Respiratory: reports: SOB, SOB on Exertion Gastrointestinal: reports: No Symptoms Genitourinary: reports: No Symptoms Musculoskeletal: reports: No Symptoms Integumentary: reports: No Symptoms Neurological: reports: No Symptoms Endocrine: reports: No Symptoms Hematology/Lymphatic: reports: No Symptoms Psychiatric: reports: No Symptoms Physical Exam Vital Signs: Vital Signs Temperature 98 F 07/02/18 14:00 Pulse Rate 56 L 07/02/18 14:00 Respiratory Rate 20 07/02/18 14:00 Blood Pressure 191/77 H 07/02/18 14:00 O2 Sat by Pulse Oximetry (%) 99 07/02/18 09:00 Constitutional: Yes: Calm Eyes: Yes: Conjunctiva Clear HENT: Yes: Atraumatic Cardiovascular: Yes: S1, S2 Respiratory: Yes: On BiPap, On Nasal O2 Gastrointestinal: Yes: Soft, Abdomen, Obese Renal/: Yes: WNL Edema: Yes Edema: LLE: 2+, RLE: 2+ Integumentary: Yes: Venous Stasis Changes Neurological: Yes: Oriented Psychiatric: Yes: Oriented Labs: CBC, BMP 07/02/18 05:30 07/02/18 05:30 Laboratory Tests 07/01/18 07/02/18 15:25 05:30 Creatinine 1.4 H 1.6 H Imaging - Results Chest X-ray: Report Reviewed Assessment/Plan Current Medications Generic Name Dose Route Start Last Admin Trade Name Freq PRN Reason Stop Dose Admin Aspirin 81 mg 07/02/18 10:00 07/02/18 10:15 Asa - PO 81 mg DAILY [facility] Administration Carvedilol 25 mg 07/02/18 10:00 07/02/18 10:15 Coreg - PO 25 mg BID [facility] Administration Clonidine 0.1 mg 07/02/18 10:00 07/02/18 10:15 Catapres - PO 0.1 mg BID [facility] Administration Clopidogrel Bisulfate 75 mg 07/02/18 10:00 07/02/18 10:15 Plavix - PO 75 mg DAILY [facility] Administration Finasteride 5 mg 07/02/18 10:00 07/02/18 10:15 Proscar - PO 5 mg DAILY [facility] Administration Furosemide 40 mg 07/02/18 06:00 07/02/18 13:43 Lasix Injection - IVPUSH 40 mg BIDLASIX [facility] Administration Glimepiride 1 mg 07/02/18 07:00 07/02/18 06:56 Amaryl - PO 1 mg DAILY@0700 [facility] Administration Heparin Sodium (Porcine) 5,000 unit 07/01/18 22:00 07/02/18 10:15 Heparin - SQ 5,000 unit BID [facility] Administration Isosorbide Mononitrate 60 mg 07/02/18 10:00 07/02/18 10:15 Imdur - PO 60 mg DAILY [facility] Administration Valsartan 80 mg 07/02/18 10:00 07/02/18 10:15 Diovan - PO 80 mg BID [facility] Administration Impression 1. CKD vs MIKI 2. HTN 3. renal artery stenosis 4. DM 5. fluid overload 6. 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
[2018-07-02 19:54] LABS: ALBUMIN 3.1 g/dl (3.4-5.0); ALK PHOS 81 U/L (45-117); ANION GAP 7 MMOL/L (8-16); BILIRUBIN,TOTAL 0.6 mg/dL (0.2-1); BLOOD UREA NITROGEN 39 mg/dL (7-18); CALCIUM 8.5 mg/dL (8.5-10.1); CHLORIDE 108 mmol/L (98-107); CO2 24 mmol/L (21-32); CREATININE 1.7 mg/dL (0.55-1.3); GLUCOSE,RANDOM 109 mg/dL (74-106); POTASSIUM 4.2 mmol/L (3.5-5.1); SGOT/AST 22 U/L (15-37); SGPT/ALT 17 U/L (13-61); SODIUM 139 mmol/L (136-145)
[2018-07-03] MEDS: FUROSEMIDE 40 MG/4 ML INJECTABLE VIAL IVPUSH SCH (05:55)
[2018-07-03] MEDS: VALSARTAN 80 MG TABLET (UD) PO SCH (08:42)
[2018-07-03] MEDS: ISOSORBIDE MONONITRATE 60 MG TAB.SR.24H (FP) PO SCH (08:43)
[2018-07-03] MEDS: GLIMEPIRIDE 1 MG TABLET (FP) PO SCH (08:44)
[2018-07-03] MEDS: cloNIDine HCL 0.1 MG TABLET PO SCH ×3 (08:44→21:37)
[2018-07-03] MEDS: CARVEDILOL 25 MG TABLET (FP) PO SCH ×2 (08:45→21:36)
[2018-07-03] MEDS: CLOPIDOGREL BISULFATE 75 MG TABLET (FP) PO SCH (10:23)
[2018-07-03] MEDS: ASPIRIN 81 MG CHEWABLE TABLETS PO SCH (10:23)
[2018-07-03] MEDS: FINASTERIDE 5 MG TABLET (FP) PO SCH (10:23)
[2018-07-03] MEDS: HEPARIN NA (PORCINE) 5,000 UNITS/ML 1ML VIAL SQ SCH ×2 (10:24→21:37)
--- NOTE | 2018-07-03 10:27 | PN ---
Progress Note, Physician History of Present Illness: Dyspnea, orthopnea, LE edema improving with diuresis, BP remains elevated despite current regimen. Review of records from [facility] and Janeth Aguirre confirm previous admissions for same, he states that Janeth Brothnanci BP regimen proved most effective for him. Will reproduce. Reports reaction to labetolol. - Current Medication List Current Medications: Active Medications Aspirin (Asa -) 81 mg PO DAILY [facility] Last Admin: 07/03/18 10:23 Dose: 81 mg Carvedilol (Coreg -) 25 mg PO BID [facility] Last Admin: 07/03/18 08:45 Dose: 25 mg Clonidine (Catapres -) 0.1 mg PO BID [facility] Last Admin: 07/03/18 08:44 Dose: 0.1 mg Clopidogrel Bisulfate (Plavix -) 75 mg PO DAILY [facility] Last Admin: 07/03/18 10:23 Dose: 75 mg Finasteride (Proscar -) 5 mg PO DAILY [facility] Last Admin: 07/03/18 10:23 Dose: 5 mg Furosemide (Lasix Injection -) 40 mg IVPUSH BIDLASIX [facility] Last Admin: 07/03/18 05:55 Dose: 40 mg Glimepiride (Amaryl -) 1 mg PO DAILY@0700 [facility] Last Admin: 07/03/18 08:44 Dose: 1 mg Heparin Sodium (Porcine) (Heparin -) 5,000 unit SQ BID [facility] Last Admin: 07/03/18 10:24 Dose: 5,000 unit Isosorbide Mononitrate (Imdur -) 60 mg PO DAILY [facility] Last Admin: 07/03/18 08:43 Dose: 60 mg Valsartan (Diovan -) 80 mg PO BID [facility] Last Admin: 07/03/18 08:42 Dose: 80 mg - Objective Vital Signs: Vital Signs Temperature 98.1 F 07/03/18 09:00 Pulse Rate 69 07/03/18 09:00 Respiratory Rate 20 07/03/18 09:00 Blood Pressure 249/80 H 07/03/18 09:00 O2 Sat by Pulse Oximetry (%) 98 07/02/18 21:00 Constitutional: Yes: No Distress, Calm Neck: Yes: Supple Cardiovascular: Yes: Regular Rate and Rhythm Respiratory: Yes: Regular, Diminished, On Nasal O2 Gastrointestinal: Yes: Normal Bowel Sounds, Abdomen, Obese Edema: Yes Edema: LLE: 2+, RLE: 2+ Integumentary: Yes: Venous Stasis Changes Labs: CBC, BMP 07/02/18 05:30 07/02/18 18:15 INR, PTT INR 1.13 (0.83-1.09) H 07/01/18 15:25 Problem List - Problems (1) Acute diastolic (congestive) heart failure Code(s): I50.31 - ACUTE DIASTOLIC (CONGESTIVE) HEART FAILURE (2) Hypertensive emergency Code(s): I16.1 - HYPERTENSIVE EMERGENCY (3) Subendocardial ischemia Code(s): I24.8 - OTHER FORMS OF ACUTE ISCHEMIC HEART DISEASE (4) Type 2 diabetes mellitus Code(s): E11.9 - TYPE 2 DIABETES MELLITUS WITHOUT COMPLICATIONS Qualifiers: Diabetes mellitus terminal superintendent insulin use: without terminal superintendent use (5) CKD (chronic kidney disease) Code(s): N18.9 - CHRONIC KIDNEY DISEASE, UNSPECIFIED Qualifiers: Chronic kidney disease stage: stage 2 (mild) Qualified Code(s): N18.2 - Chronic kidney disease, stage 2 (mild) Assessment/Plan 07/02/2018 Echo: Borderline cLVH, normal LV and RV size and fxn, LVEF 60-65%, mild LAE, tr MR, TR, mild pericardial effusions Echo: Mild cLVH, normal LVEF 55% 07/02/2018 Renal US: No hydro 05/23/2018 No evidence of renal artery stenosis 1. Acute hypoxic respiratory failure referable to 2. Acute diastolic heart failure with subendocardial ischemic injury 3. Hypertensive emergency with labile BP 4. Type 2 DM 5. H/o stroke 6. CKD, no renal artery stenosis on imaging 7. Allergies to calcium channel blockers and hydralazine 8. RSD with RUE crush injury P:1. IV diuresis with monitor diuretic response, renal fxn and electrolytes 2. Troponins have peaked 3. Continue ASA 81 qd, change Diovan to vasotec 20 bid (captopril unavailable), chlorthalidone 50 qd, Plavix 75 qd, Imdur 60 qd, carvedilol 25 bid, clonidine 0.3 tid with uptitration as hemodynamics tolerate 4. Review of records from [facility] and Janeth brothers confirm resistant HTN
[2018-07-03] MEDS: ENALAPRIL MALEATE 10 MG TABLET (FP) PO SCH ×2 (12:00→21:36)
--- NOTE | 2018-07-03 12:20 | PN ---
Progress Note, Physician History of Present Illness: Pt seen and examined at bedside. He is awake and alert. He denies shortness of breath. He complains of edema. He does not want lasix and is asking for another diuretic. - Current Medication List Current Medications: Active Medications Aspirin (Asa -) 81 mg PO DAILY [facility] Last Admin: 07/03/18 10:23 Dose: 81 mg Carvedilol (Coreg -) 25 mg PO BID [facility] Last Admin: 07/03/18 08:45 Dose: 25 mg Clonidine (Catapres -) 0.3 mg PO TID [facility] Clopidogrel Bisulfate (Plavix -) 75 mg PO DAILY [facility] Last Admin: 07/03/18 10:23 Dose: 75 mg Enalapril Maleate (Vasotec -) 20 mg PO BID [facility] Finasteride (Proscar -) 5 mg PO DAILY [facility] Last Admin: 07/03/18 10:23 Dose: 5 mg Furosemide (Lasix Injection -) 40 mg IVPUSH BIDLASIX [facility] Last Admin: 07/03/18 05:55 Dose: 40 mg Glimepiride (Amaryl -) 1 mg PO DAILY@0700 [facility] Last Admin: 07/03/18 08:44 Dose: 1 mg Heparin Sodium (Porcine) (Heparin -) 5,000 unit SQ BID [facility] Last Admin: 07/03/18 10:24 Dose: 5,000 unit Isosorbide Mononitrate (Imdur -) 60 mg PO DAILY [facility] Last Admin: 07/03/18 08:43 Dose: 60 mg - Objective Vital Signs: Vital Signs Temperature 97.8 F 07/03/18 09:00 Pulse Rate 69 07/03/18 09:00 Respiratory Rate 20 07/03/18 09:00 Blood Pressure 249/90 H 07/03/18 09:00 O2 Sat by Pulse Oximetry (%) 98 07/03/18 09:00 Constitutional: Yes: Calm Eyes: Yes: Conjunctiva Clear HENT: Yes: Atraumatic Neck: Yes: Supple Cardiovascular: Yes: S1, S2 Respiratory: Yes: CTA Bilaterally Gastrointestinal: Yes: Soft, Abdomen, Obese Genitourinary: Yes: WNL Musculoskeletal: Yes: WNL Edema: Yes Edema: LLE: 2+, RLE: 2+ Integumentary: Yes: Venous Stasis Changes Neurological: Yes: Oriented Psychiatric: Yes: Oriented Labs: CBC, BMP 04/30/19 05:30 07/02/18 18:15 INR, PTT INR 1.13 (0.83-1.09) H 07/01/18 15:25 Assessment/Plan Current Medications Generic Name Dose Route Start Last Admin Trade Name Anthony PRN Reason Stop Dose Admin Aspirin 81 mg 07/02/18 10:00 07/03/18 10:23 Asa - PO 81 mg DAILY [facility] Administration Carvedilol 25 mg 07/02/18 10:00 07/03/18 08:45 Coreg - PO 25 mg BID [facility] Administration Clonidine 0.3 mg 07/03/18 14:00 Catapres - PO TID [facility] Clopidogrel Bisulfate 75 mg 07/02/18 10:00 07/03/18 10:23 Plavix - PO 75 mg DAILY [facility] Administration Enalapril Maleate 20 mg 07/03/18 11:30 Vasotec - PO BID [facility] Finasteride 5 mg 07/02/18 10:00 07/03/18 10:23 Proscar - PO 5 mg DAILY [facility] Administration Furosemide 40 mg 07/02/18 06:00 07/03/18 05:55 Lasix Injection - IVPUSH 40 mg BIDLASIX [facility] Administration Glimepiride 1 mg 07/02/18 07:00 07/03/18 08:44 Amaryl - PO 1 mg DAILY@0700 [facility] Administration Heparin Sodium (Porcine) 5,000 unit 07/01/18 22:00 07/03/18 10:24 Heparin - SQ 5,000 unit BID [facility] Administration Isosorbide Mononitrate 60 mg 07/02/18 10:00 07/03/18 08:43 Imdur - PO 60 mg DAILY [facility] Administration Laboratory Tests 07/03/18 07/03/18 10:30 10:30 Urine Protein Pending Urine Blood Pending Protein/Creatinin Ratio Pending Impression 1. CKD vs MIKI 2. HTN 3. renal artery stenosis 4. DM 5. fluid overload 6. chf dialstolic Plan - discussed with cardio, bp meds adjusted - will change lasix to torsemide, per pt request - monitor bp - if bp not improved with changed may need ICU monitoring - follow urine studies - renal ultrasound report reviewed Dr Wise
[2018-07-03 12:30] LABS: RATIO URIN PROTEIN/URIN CREAT 6.91 MG/DL
[2018-07-03] MEDS: TORSEMIDE 20 MG TABLET (FP) PO SCH (12:50)
[2018-07-03 12:52] LABS: EPI CELLS 0.7 /HPF (0-5/HPF); URINE APPEARANCE CLEAR; URINE BACTERIA 1.5 /hpf (NEGATIVE); URINE BILIRUBIN NEGATIVE (NEGATIVE); URINE CASTS 9 /lpf (0-8); URINE COLOR YELLOW; URINE GLUCOSE (UA) NEGATIVE (NEGATIVE); URINE KETONE NEGATIVE (NEGATIVE); URINE LEUK ESTERASE NEGATIVE (NEGATIVE); URINE NITRITE NEGATIVE (NEGATIVE); URINE PROTEIN 3+ (NEGATIVE); URINE RBC 2 /hpf (0-4); URINE UROBILINOGEN 0.2 mg/dL (0.2-1.0); URINE WBC 1 /hpf (0-5)
[2018-07-03] MEDS ORDERED: BISMUTH SUBSALICYLATE 524 MG/30 ML UD PO PRN (19:47)
--- NOTE | 2018-07-03 19:47 | PN ---
Progress Note, Physician History of Present Illness: feeling good - Current Medication List Current Medications: Active Medications Aspirin (Asa -) 81 mg PO DAILY [facility] Last Admin: 07/03/18 10:23 Dose: 81 mg Carvedilol (Coreg -) 25 mg PO BID [facility] Last Admin: 07/03/18 08:45 Dose: 25 mg Clonidine (Catapres -) 0.3 mg PO TID [facility] Last Admin: 07/03/18 14:23 Dose: 0.3 mg Clopidogrel Bisulfate (Plavix -) 75 mg PO DAILY [facility] Last Admin: 07/03/18 10:23 Dose: 75 mg Enalapril Maleate (Vasotec -) 20 mg PO BID [facility] Last Admin: 07/03/18 12:00 Dose: 20 mg Finasteride (Proscar -) 5 mg PO DAILY [facility] Last Admin: 07/03/18 10:23 Dose: 5 mg Glimepiride (Amaryl -) 1 mg PO DAILY@0700 [facility] Last Admin: 07/03/18 08:44 Dose: 1 mg Heparin Sodium (Porcine) (Heparin -) 5,000 unit SQ BID [facility] Last Admin: 07/03/18 10:24 Dose: 5,000 unit Isosorbide Mononitrate (Imdur -) 60 mg PO DAILY [facility] Last Admin: 07/03/18 08:43 Dose: 60 mg Torsemide (Demadex -) 40 mg PO DAILY [facility] Last Admin: 07/03/18 12:50 Dose: 40 mg - Objective Vital Signs: Vital Signs Temperature 98.0 F 07/03/18 17:00 Pulse Rate 51 L 07/03/18 17:00 Respiratory Rate 20 07/03/18 17:00 Blood Pressure 186/82 H 07/03/18 17:00 O2 Sat by Pulse Oximetry (%) 98 07/03/18 14:14 Constitutional: Yes: No Distress HENT: Yes: Atraumatic Neck: Yes: Supple Cardiovascular: Yes: Regular Rate and Rhythm Respiratory: Yes: CTA Bilaterally Gastrointestinal: Yes: Normal Bowel Sounds Extremities: Yes: WNL Edema: Yes Edema: LLE: 3+, RLE: 3+ Neurological: Yes: Alert, Oriented Labs: CBC, BMP 07/02/18 05:30 07/02/18 18:15 INR, PTT INR 1.13 (0.83-1.09) H 07/01/18 15:25 Problem List - Problems (1) Dyspnea Assessment/Plan: on diuretics...much improved monitor renal functions Code(s): R06.00 - DYSPNEA, UNSPECIFIED (2) Acute diastolic (congestive) heart failure Assessment/Plan: continue home meds cardiology on board Code(s): I50.31 - ACUTE DIASTOLIC (CONGESTIVE) HEART FAILURE (3) CKD (chronic kidney disease) Assessment/Plan: monitor renal consult reviewed Code(s): N18.9 - CHRONIC KIDNEY DISEASE, UNSPECIFIED Qualifiers: Chronic kidney disease stage: stage 2 (mild) Qualified Code(s): N18.2 - Chronic kidney disease, stage 2 (mild) (4) Type 2 diabetes mellitus Assessment/Plan: on meds monitor bgms Code(s): E11.9 - TYPE 2 DIABETES MELLITUS WITHOUT COMPLICATIONS Qualifiers: Diabetes mellitus senior care insulin use: without senior care use (5) Hypertensive emergency Code(s): I16.1 - HYPERTENSIVE EMERGENCY (6) Subendocardial ischemia Code(s): I24.8 - OTHER FORMS OF ACUTE ISCHEMIC HEART DISEASE Assessment/Plan patient asking for peptobismol for heart burn
[2018-07-03] MEDS ORDERED: BISMUTH SUBSALICYLATE 262 MG/15 ML BTL PO PRN (21:04)
[2018-07-03] MEDS: BISMUTH SUBSALICYLATE 262 MG/15 ML BTL PO PRN (21:37)
[2018-07-04] MEDS: cloNIDine HCL 0.1 MG TABLET PO SCH ×3 (06:02→21:38)
[2018-07-04] MEDS: GLIMEPIRIDE 1 MG TABLET (FP) PO SCH (06:40)
[2018-07-04 08:01] LABS: ANION GAP 7 MMOL/L (8-16); BLOOD UREA NITROGEN 41 mg/dL (7-18); CALCIUM 8.7 mg/dL (8.5-10.1); CHLORIDE 107 mmol/L (98-107); CO2 26 mmol/L (21-32); CREATININE 1.7 mg/dL (0.55-1.3); GLUCOSE,RANDOM 132 mg/dL (74-106); POTASSIUM 4.5 mmol/L (3.5-5.1); SODIUM 140 mmol/L (136-145)
[2018-07-04] MEDS: ASPIRIN 81 MG CHEWABLE TABLETS PO SCH (09:35)
[2018-07-04] MEDS: HEPARIN NA (PORCINE) 5,000 UNITS/ML 1ML VIAL SQ SCH ×2 (09:36→21:38)
[2018-07-04] MEDS: FINASTERIDE 5 MG TABLET (FP) PO SCH (09:36)
[2018-07-04] MEDS: ISOSORBIDE MONONITRATE 60 MG TAB.SR.24H (FP) PO SCH ×2 (09:36→11:39)
[2018-07-04] MEDS: CLOPIDOGREL BISULFATE 75 MG TABLET (FP) PO SCH (09:36)
[2018-07-04] MEDS: ENALAPRIL MALEATE 10 MG TABLET (FP) PO SCH ×2 (09:36→21:38)
[2018-07-04] MEDS: CARVEDILOL 25 MG TABLET (FP) PO SCH ×2 (09:36→21:38)
[2018-07-04] MEDS: TORSEMIDE 20 MG TABLET (FP) PO SCH (09:37)
--- NOTE | 2018-07-04 09:43 | PN ---
Progress Note, Physician History of Present Illness: Dyspnea, orthopnea, LE edema improving with diuresis, BP remains elevated despite current regimen. Review of records from [facility] and Janeth Aguirre confirm previous admissions for same, he states that Janeth Aguirre BP regimen proved most effective for him. Will reproduce. Reports reaction to labetolol, changed Lasix to Demadex per patient's request. - Current Medication List Current Medications: Active Medications Aspirin (Asa -) 81 mg PO DAILY [facility] Last Admin: 07/04/18 09:35 Dose: 81 mg Bismuth Subsalicylate (Pepto-Bismol Liquid -) 30 ml PO Q12H PRN PRN Reason: DIARRHEA Last Admin: 07/03/18 21:37 Dose: 30 ml Carvedilol (Coreg -) 25 mg PO BID [facility] Last Admin: 07/04/18 09:36 Dose: 25 mg Clonidine (Catapres -) 0.3 mg PO TID [facility] Last Admin: 07/04/18 06:02 Dose: 0.3 mg Clopidogrel Bisulfate (Plavix -) 75 mg PO DAILY [facility] Last Admin: 07/04/18 09:36 Dose: 75 mg Enalapril Maleate (Vasotec -) 20 mg PO BID [facility] Last Admin: 07/04/18 09:36 Dose: 20 mg Finasteride (Proscar -) 5 mg PO DAILY [facility] Last Admin: 07/04/18 09:36 Dose: 5 mg Glimepiride (Amaryl -) 1 mg PO DAILY@0700 [facility] Last Admin: 07/04/18 06:40 Dose: 1 mg Heparin Sodium (Porcine) (Heparin -) 5,000 unit SQ BID [facility] Last Admin: 07/04/18 09:36 Dose: 5,000 unit Isosorbide Mononitrate (Imdur -) 60 mg PO DAILY [facility] Last Admin: 07/04/18 09:36 Dose: 60 mg Torsemide (Demadex -) 40 mg PO DAILY [facility] Last Admin: 07/04/18 09:37 Dose: 40 mg - Objective Vital Signs: Vital Signs Temperature 98.2 F 07/04/18 08:00 Pulse Rate 55 L 07/04/18 08:00 Respiratory Rate 20 07/04/18 09:00 Blood Pressure 223/90 H 07/04/18 08:00 O2 Sat by Pulse Oximetry (%) 97 07/04/18 09:00 Constitutional: Yes: No Distress, Calm Neck: Yes: Supple Cardiovascular: Yes: Regular Rate and Rhythm Respiratory: Yes: Regular, Diminished Gastrointestinal: Yes: Normal Bowel Sounds, Soft Edema: Yes Edema: LLE: 1+, RLE: 1+ Integumentary: Yes: Venous Stasis Changes Labs: CBC, BMP 07/02/18 05:30 07/04/18 05:40 INR, PTT INR 1.13 (0.83-1.09) H 07/01/18 15:25 Problem List - Problems (1) Acute diastolic (congestive) heart failure Code(s): I50.31 - ACUTE DIASTOLIC (CONGESTIVE) HEART FAILURE (2) Hypertensive emergency Code(s): I16.1 - HYPERTENSIVE EMERGENCY (3) Subendocardial ischemia Code(s): I24.8 - OTHER FORMS OF ACUTE ISCHEMIC HEART DISEASE (4) Type 2 diabetes mellitus Code(s): E11.9 - TYPE 2 DIABETES MELLITUS WITHOUT COMPLICATIONS Qualifiers: Diabetes mellitus alf insulin use: without termite control representative use (5) CKD (chronic kidney disease) Code(s): N18.9 - CHRONIC KIDNEY DISEASE, UNSPECIFIED Qualifiers: Chronic kidney disease stage: stage 2 (mild) Qualified Code(s): N18.2 - Chronic kidney disease, stage 2 (mild) Assessment/Plan 07/02/2018 Echo: Borderline cLVH, normal LV and RV size and fxn, LVEF 60-65%, mild LAE, tr MR, TR, mild pericardial effusions 05/13/20188 Echo: Mild cLVH, normal LVEF 55%, PFO with L->R shunt 07/02/2018 Renal US: No hydro 05/23/2018 No evidence of renal artery stenosis 1. Acute hypoxic respiratory failure referable to 2. Acute on chronic diastolic heart failure with subendocardial ischemic injury 3. Hypertensive emergency with labile BP 4. Type 2 DM 5. H/o stroke 6. CKD, no renal artery stenosis on imaging 7. Allergies to calcium channel blockers and hydralazine 8. RSD with RUE crush injury P:1. Oral diuresis with monitor diuretic response, renal fxn and electrolytes 2. Troponins have peaked 3. Continue ASA 81 qd, vasotec 20 bid (captopril unavailable), add chlorthalidone 50 qd, Plavix 75 qd, increase Imdur 120 qd, carvedilol 25 bid, clonidine 0.3 tid with uptitration as hemodynamics tolerate 4. Review of records from [facility] and Janeth brothers confirm resistant HTN
[2018-07-04] MEDS ORDERED: CHLORTHALIDONE 50 MG TABLET PO SCH (10:00)
[2018-07-04] MEDS ORDERED: PT OWN MED DRAWER 7, Y5N ONE (11:30)
[2018-07-04] MEDS: CHLORTHALIDONE 25 MG TABLET PO SCH (11:40)
[2018-07-04] MEDS: BISMUTH SUBSALICYLATE 262 MG/15 ML BTL PO PRN (11:40)
--- NOTE | 2018-07-04 13:59 | PN ---
Progress Note, Physician History of Present Illness: Pt seen and examined at bedside. He says that his edema is starting to get better. - Current Medication List Current Medications: Active Medications Aspirin (Asa -) 81 mg PO DAILY [facility] Last Admin: 07/04/18 09:35 Dose: 81 mg Bismuth Subsalicylate (Pepto-Bismol Liquid -) 30 ml PO Q12H PRN PRN Reason: DIARRHEA Last Admin: 07/04/18 11:40 Dose: 30 ml Carvedilol (Coreg -) 25 mg PO BID [facility] Last Admin: 07/04/18 09:36 Dose: 25 mg Chlorthalidone (Hygroton -) 50 mg PO DAILY [facility] Last Admin: 07/04/18 11:40 Dose: 50 mg Clonidine (Catapres -) 0.3 mg PO TID [facility] Last Admin: 07/04/18 06:02 Dose: 0.3 mg Clopidogrel Bisulfate (Plavix -) 75 mg PO DAILY [facility] Last Admin: 07/04/18 09:36 Dose: 75 mg Enalapril Maleate (Vasotec -) 20 mg PO BID [facility] Last Admin: 07/04/18 09:36 Dose: 20 mg Finasteride (Proscar -) 5 mg PO DAILY [facility] Last Admin: 07/04/18 09:36 Dose: 5 mg Glimepiride (Amaryl -) 1 mg PO DAILY@0700 [facility] Last Admin: 07/04/18 06:40 Dose: 1 mg Heparin Sodium (Porcine) (Heparin -) 5,000 unit SQ BID [facility] Last Admin: 07/04/18 09:36 Dose: 5,000 unit Isosorbide Mononitrate (Imdur -) 120 mg PO DAILY [facility] Last Admin: 07/04/18 11:39 Dose: 60 mg Torsemide (Demadex -) 40 mg PO DAILY [facility] Last Admin: 07/04/18 09:37 Dose: 40 mg - Objective Vital Signs: Vital Signs Temperature 98.2 F 07/04/18 08:00 Pulse Rate 55 L 07/04/18 08:00 Respiratory Rate 20 07/04/18 09:00 Blood Pressure 223/90 H 07/04/18 08:00 O2 Sat by Pulse Oximetry (%) 97 07/04/18 11:39 Constitutional: Yes: Calm Eyes: Yes: Conjunctiva Clear HENT: Yes: Atraumatic Neck: Yes: Supple Cardiovascular: Yes: S1, S2 Respiratory: Yes: CTA Bilaterally Gastrointestinal: Yes: Normal Bowel Sounds, Soft Genitourinary: Yes: WNL Edema: Yes Edema: LLE: 2+, RLE: 2+ Neurological: Yes: Oriented Psychiatric: Yes: Oriented Labs: CBC, BMP 07/02/18 05:30 07/04/18 05:40 INR, PTT INR 1.13 (0.83-1.09) H 07/01/18 15:25 Assessment/Plan Current Medications Generic Name Dose Route Start Last Admin Trade Name Freq PRN Reason Stop Dose Admin Aspirin 81 mg 07/02/18 10:00 07/04/18 09:35 Asa - PO 81 mg DAILY [facility] Administration Bismuth Subsalicylate 30 ml 07/04/18 09:04 07/04/18 11:40 Pepto-Bismol Liquid - PO 30 ml Q12H PRN Administration DIARRHEA Carvedilol 25 mg 07/02/18 10:00 07/04/18 09:36 Coreg - PO 25 mg BID [facility] Administration Chlorthalidone 50 mg 07/04/18 10:00 07/04/18 11:40 [place] - PO 50 mg DAILY [facility] Administration Clonidine 0.3 mg 07/03/18 14:00 07/04/18 06:02 Catapres - PO 0.3 mg TID [facility] Administration Clopidogrel Bisulfate 75 mg 07/02/18 10:00 07/04/18 09:36 Plavix - PO 75 mg DAILY [facility] Administration Enalapril Maleate 20 mg 07/03/18 11:30 07/04/18 09:36 Vasotec - PO 20 mg BID [facility] Administration Finasteride 5 mg 07/02/18 10:00 07/04/18 09:36 Proscar - PO 5 mg DAILY [facility] Administration Glimepiride 1 mg 07/02/18 07:00 07/04/18 06:40 Amaryl - PO 1 mg DAILY@0700 [facility] Administration Heparin Sodium (Porcine) 5,000 unit 07/01/18 22:00 07/04/18 09:36 Heparin - SQ 5,000 unit BID [facility] Administration Isosorbide Mononitrate 120 mg 07/04/18 09:51 07/04/18 11:39 Imdur - PO 60 mg DAILY [facility] Administration Torsemide 40 mg 07/03/18 12:30 07/04/18 09:37 Demadex - PO 40 mg DAILY [facility] Administration Impression 1. CKD vs MIKI 2. HTN - resistant 3. renal artery stenosis 4. DM 5. fluid overload 6. chf dialstolic Plan - cont with bp meds - cont torsemide - chlrothalidone added - monitor bp closely - follow urine studies Dr Wise
--- NOTE | 2018-07-04 16:49 | PN ---
Progress Note, Physician History of Present Illness: feeling good - Current Medication List Current Medications: Active Medications Aspirin (Asa -) 81 mg PO DAILY [facility] Last Admin: 07/04/18 09:35 Dose: 81 mg Bismuth Subsalicylate (Pepto-Bismol Liquid -) 30 ml PO Q12H PRN PRN Reason: DIARRHEA Last Admin: 07/04/18 11:40 Dose: 30 ml Carvedilol (Coreg -) 25 mg PO BID [facility] Last Admin: 07/04/18 09:36 Dose: 25 mg Chlorthalidone (Hygroton -) 50 mg PO DAILY [facility] Last Admin: 07/04/18 11:40 Dose: 50 mg Clonidine (Catapres -) 0.3 mg PO TID [facility] Last Admin: 07/04/18 15:44 Dose: 0.3 mg Clopidogrel Bisulfate (Plavix -) 75 mg PO DAILY [facility] Last Admin: 07/04/18 09:36 Dose: 75 mg Enalapril Maleate (Vasotec -) 20 mg PO BID [facility] Last Admin: 07/04/18 09:36 Dose: 20 mg Finasteride (Proscar -) 5 mg PO DAILY [facility] Last Admin: 07/04/18 09:36 Dose: 5 mg Glimepiride (Amaryl -) 1 mg PO DAILY@0700 [facility] Last Admin: 07/04/18 06:40 Dose: 1 mg Heparin Sodium (Porcine) (Heparin -) 5,000 unit SQ BID [facility] Last Admin: 07/04/18 09:36 Dose: 5,000 unit Isosorbide Mononitrate (Imdur -) 120 mg PO DAILY [facility] Last Admin: 07/04/18 11:39 Dose: 60 mg Torsemide (Demadex -) 40 mg PO DAILY [facility] Last Admin: 07/04/18 09:37 Dose: 40 mg - Objective Vital Signs: Vital Signs Temperature 97.6 F 07/04/18 14:00 Pulse Rate 116 H 07/04/18 14:00 Respiratory Rate 20 07/04/18 09:00 Blood Pressure 204/78 H 07/04/18 14:00 O2 Sat by Pulse Oximetry (%) 97 07/04/18 16:08 Constitutional: Yes: No Distress HENT: Yes: Atraumatic Neck: Yes: Supple Cardiovascular: Yes: Regular Rate and Rhythm Respiratory: Yes: CTA Bilaterally Gastrointestinal: Yes: Normal Bowel Sounds Extremities: Yes: Other (b/l lamont chronic wounds) Edema: No Edema: LLE: 3+, RLE: 3+ Neurological: Yes: Alert, Oriented Labs: CBC, BMP 07/02/18 05:30 07/04/18 05:40 INR, PTT INR 1.13 (0.83-1.09) H 07/01/18 15:25 Problem List - Problems (1) Dyspnea Assessment/Plan: on diuretics...much improved monitor renal functions Code(s): R06.00 - DYSPNEA, UNSPECIFIED (2) Acute diastolic (congestive) heart failure Assessment/Plan: continue home meds cardiology on board Code(s): I50.31 - ACUTE DIASTOLIC (CONGESTIVE) HEART FAILURE (3) CKD (chronic kidney disease) Assessment/Plan: monitor renal consult reviewed Code(s): N18.9 - CHRONIC KIDNEY DISEASE, UNSPECIFIED Qualifiers: Chronic kidney disease stage: stage 2 (mild) Qualified Code(s): N18.2 - Chronic kidney disease, stage 2 (mild) (4) Type 2 diabetes mellitus Assessment/Plan: on meds monitor bgms Code(s): E11.9 - TYPE 2 DIABETES MELLITUS WITHOUT COMPLICATIONS Qualifiers: Diabetes mellitus coin machine collector insulin use: without senior care use (5) Hypertensive emergency Assessment/Plan: on meds monitor...bp still very high Code(s): I16.1 - HYPERTENSIVE EMERGENCY (6) Subendocardial ischemia Assessment/Plan: fu troponins on tele Code(s): I24.8 - OTHER FORMS OF ACUTE ISCHEMIC HEART DISEASE
[2018-07-05] MEDS: GLIMEPIRIDE 1 MG TABLET (FP) PO SCH (06:17)
[2018-07-05] MEDS: cloNIDine HCL 0.1 MG TABLET PO SCH ×3 (06:17→22:44)
[2018-07-05] MEDS ORDERED: PT OWN MED DRAWER 7, Y5N ONE (09:22)
[2018-07-05] MEDS: TORSEMIDE 20 MG TABLET (FP) PO SCH (09:28)
[2018-07-05] MEDS: FINASTERIDE 5 MG TABLET (FP) PO SCH (09:29)
[2018-07-05] MEDS: ASPIRIN 81 MG CHEWABLE TABLETS PO SCH (09:29)
[2018-07-05] MEDS: CARVEDILOL 25 MG TABLET (FP) PO SCH ×2 (09:29→22:44)
[2018-07-05] MEDS: CLOPIDOGREL BISULFATE 75 MG TABLET (FP) PO SCH (09:29)
[2018-07-05] MEDS: ISOSORBIDE MONONITRATE 60 MG TAB.SR.24H (FP) PO SCH (09:30)
[2018-07-05] MEDS: HEPARIN NA (PORCINE) 5,000 UNITS/ML 1ML VIAL SQ SCH ×2 (09:30→22:45)
--- NOTE | 2018-07-05 10:23 | PN ---
Progress Note, Physician History of Present Illness: Dyspnea, orthopnea, LE edema improving with diuresis, BP remains elevated despite current regimen. Review of records from [facility] and Janeth Aguirre confirm previous admissions for same, he states that Janeth Aguirre BP regimen proved most effective for him. Will reproduce. Reports reaction to labetolol, changed Lasix to Demadex per patient's request. - Current Medication List Current Medications: Active Medications Aspirin (Asa -) 81 mg PO DAILY [facility] Last Admin: 07/05/18 09:29 Dose: 81 mg Bismuth Subsalicylate (Pepto-Bismol Liquid -) 30 ml PO Q12H PRN PRN Reason: DIARRHEA Last Admin: 07/04/18 11:40 Dose: 30 ml Carvedilol (Coreg -) 25 mg PO BID [facility] Last Admin: 07/05/18 09:29 Dose: 25 mg Chlorthalidone (Hygroton -) 50 mg PO DAILY [facility] Last Admin: 07/04/18 11:40 Dose: 50 mg Clonidine (Catapres -) 0.3 mg PO TID [facility] Last Admin: 07/05/18 06:17 Dose: 0.3 mg Clopidogrel Bisulfate (Plavix -) 75 mg PO DAILY [facility] Last Admin: 07/05/18 09:29 Dose: 75 mg Enalapril Maleate (Vasotec -) 20 mg PO BID [facility] Last Admin: 07/04/18 21:38 Dose: 20 mg Finasteride (Proscar -) 5 mg PO DAILY [facility] Last Admin: 07/05/18 09:29 Dose: 5 mg Glimepiride (Amaryl -) 1 mg PO DAILY@0700 [facility] Last Admin: 07/05/18 06:17 Dose: 1 mg Heparin Sodium (Porcine) (Heparin -) 5,000 unit SQ BID [facility] Last Admin: 07/05/18 09:30 Dose: 5,000 unit Isosorbide Mononitrate (Imdur -) 120 mg PO DAILY [facility] Last Admin: 07/05/18 09:30 Dose: 120 mg Torsemide (Demadex -) 40 mg PO DAILY [facility] Last Admin: 07/05/18 09:28 Dose: 40 mg - Objective Vital Signs: Vital Signs Temperature 97.7 F 07/05/18 06:00 Pulse Rate 52 L 07/05/18 06:00 Respiratory Rate 20 07/05/18 09:00 Blood Pressure 227/89 H 07/05/18 06:00 O2 Sat by Pulse Oximetry (%) 98 07/05/18 09:00 Constitutional: Yes: No Distress, Calm Neck: Yes: Supple Cardiovascular: Yes: Regular Rate and Rhythm Respiratory: Yes: Regular, CTA Bilaterally Gastrointestinal: Yes: Normal Bowel Sounds, Soft Edema: Yes Edema: LLE: 1+, RLE: 1+ Integumentary: Yes: Venous Stasis Changes Labs: CBC, BMP 07/02/18 05:30 07/04/18 05:40 INR, PTT INR 1.13 (0.83-1.09) H 07/01/18 15:25 Problem List - Problems (1) Acute diastolic (congestive) heart failure Code(s): I50.31 - ACUTE DIASTOLIC (CONGESTIVE) HEART FAILURE (2) Hypertensive emergency Code(s): I16.1 - HYPERTENSIVE EMERGENCY (3) Subendocardial ischemia Code(s): I24.8 - OTHER FORMS OF ACUTE ISCHEMIC HEART DISEASE (4) Type 2 diabetes mellitus Code(s): E11.9 - TYPE 2 DIABETES MELLITUS WITHOUT COMPLICATIONS Qualifiers: Diabetes mellitus sports administrator insulin use: without correction use (5) CKD (chronic kidney disease) Code(s): N18.9 - CHRONIC KIDNEY DISEASE, UNSPECIFIED Qualifiers: Chronic kidney disease stage: stage 2 (mild) Qualified Code(s): N18.2 - Chronic kidney disease, stage 2 (mild) Assessment/Plan 07/02/2018 Echo: Borderline cLVH, normal LV and RV size and fxn, LVEF 60-65%, mild LAE, tr MR, TR, mild pericardial effusions 05/13/20188 Echo: Mild cLVH, normal LVEF 55%, PFO with L->R shunt 07/02/2018 Renal US: No hydro 05/23/2018 No evidence of renal artery stenosis 1. Acute hypoxic respiratory failure referable to 2. Acute on chronic diastolic heart failure with subendocardial ischemic injury 3. Resistant hypertension 4. Type 2 DM 5. H/o stroke 6. CKD, no renal artery stenosis on imaging 7. Allergies to calcium channel blockers and hydralazine 8. RSD with RUE crush injury P:1. Oral diuresis with monitor diuretic response, renal fxn and electrolytes 2. Troponins have peaked 3. Continue ASA 81 qd, vasotec 20 bid (captopril unavailable), chlorthalidone 50 qd, Plavix 75 qd, increase Imdur 120 qd, carvedilol 25 bid, clonidine 0.3 tid and add minoxidil 5 qd with uptitration as hemodynamics tolerate 4. Review of records from [facility] and Janeth brothers confirm resistant HTN 5. Studies on renal sympathetic denervation for resistant HTN did not show efficacy
--- NOTE | 2018-07-05 11:19 | PN ---
Progress Note, Physician History of Present Illness: feeling good - Current Medication List Current Medications: Active Medications Aspirin (Asa -) 81 mg PO DAILY [facility] Last Admin: 07/05/18 09:29 Dose: 81 mg Bismuth Subsalicylate (Pepto-Bismol Liquid -) 30 ml PO Q12H PRN PRN Reason: DIARRHEA Last Admin: 07/04/18 11:40 Dose: 30 ml Carvedilol (Coreg -) 25 mg PO BID [facility] Last Admin: 07/05/18 09:29 Dose: 25 mg Chlorthalidone (Hygroton -) 50 mg PO DAILY [facility] Last Admin: 07/04/18 11:40 Dose: 50 mg Clonidine (Catapres -) 0.3 mg PO TID [facility] Last Admin: 07/05/18 06:17 Dose: 0.3 mg Clopidogrel Bisulfate (Plavix -) 75 mg PO DAILY [facility] Last Admin: 07/05/18 09:29 Dose: 75 mg Enalapril Maleate (Vasotec -) 20 mg PO BID [facility] Last Admin: 07/04/18 21:38 Dose: 20 mg Finasteride (Proscar -) 5 mg PO DAILY [facility] Last Admin: 07/05/18 09:29 Dose: 5 mg Glimepiride (Amaryl -) 1 mg PO DAILY@0700 [facility] Last Admin: 07/05/18 06:17 Dose: 1 mg Heparin Sodium (Porcine) (Heparin -) 5,000 unit SQ BID [facility] Last Admin: 07/05/18 09:30 Dose: 5,000 unit Isosorbide Mononitrate (Imdur -) 120 mg PO DAILY [facility] Last Admin: 07/05/18 09:30 Dose: 120 mg Minoxidil (Lonitin -) 5 mg PO DAILY [facility] Torsemide (Demadex -) 40 mg PO DAILY [facility] Last Admin: 07/05/18 09:28 Dose: 40 mg - Objective Vital Signs: Vital Signs Temperature 97.7 F 07/05/18 06:00 Pulse Rate 52 L 07/05/18 06:00 Respiratory Rate 20 07/05/18 09:00 Blood Pressure 227/89 H 07/05/18 06:00 O2 Sat by Pulse Oximetry (%) 98 07/05/18 09:00 Constitutional: Yes: No Distress HENT: Yes: Atraumatic Neck: Yes: Supple Cardiovascular: Yes: Regular Rate and Rhythm Respiratory: Yes: CTA Bilaterally Gastrointestinal: Yes: Normal Bowel Sounds Extremities: Yes: Other (wound left leg healing) Edema: Yes Edema: LLE: 3+, RLE: 3+ Peripheral Pulses WNL: Yes Neurological: Yes: Alert, Oriented Labs: CBC, BMP 07/02/18 05:30 07/04/18 05:40 INR, PTT INR 1.13 (0.83-1.09) H 07/01/18 15:25 Problem List - Problems (1) Dyspnea Assessment/Plan: on diuretics...much improved monitor renal functions Code(s): R06.00 - DYSPNEA, UNSPECIFIED (2) Acute diastolic (congestive) heart failure Assessment/Plan: continue home meds cardiology on board Code(s): I50.31 - ACUTE DIASTOLIC (CONGESTIVE) HEART FAILURE (3) CKD (chronic kidney disease) Assessment/Plan: monitor renal consult reviewed Code(s): N18.9 - CHRONIC KIDNEY DISEASE, UNSPECIFIED Qualifiers: Chronic kidney disease stage: stage 2 (mild) Qualified Code(s): N18.2 - Chronic kidney disease, stage 2 (mild) (4) Type 2 diabetes mellitus Assessment/Plan: on meds monitor bgms Code(s): E11.9 - TYPE 2 DIABETES MELLITUS WITHOUT COMPLICATIONS Qualifiers: Diabetes mellitus moth exterminator insulin use: without moth exterminator use (5) Hypertensive emergency Assessment/Plan: on meds monitor...bp still very high Code(s): I16.1 - HYPERTENSIVE EMERGENCY (6) Subendocardial ischemia Assessment/Plan: fu troponins on tele Code(s): I24.8 - OTHER FORMS OF ACUTE ISCHEMIC HEART DISEASE
[2018-07-05] MEDS: ENALAPRIL MALEATE 10 MG TABLET (FP) PO SCH ×2 (11:47→22:44)
[2018-07-05] MEDS: CHLORTHALIDONE 25 MG TABLET PO SCH (11:47)
[2018-07-05] MEDS: MINOXIDIL 2.5 MG TABLET PO SCH (13:45)
--- NOTE | 2018-07-05 15:26 | PN ---
Progress Note, Physician History of Present Illness: Pt seen and examined at bedside. He is awake and alert. He denies shortness of breath. - Current Medication List Current Medications: Active Medications Aspirin (Asa -) 81 mg PO DAILY [facility] Last Admin: 07/05/18 09:29 Dose: 81 mg Bismuth Subsalicylate (Pepto-Bismol Liquid -) 30 ml PO Q12H PRN PRN Reason: DIARRHEA Last Admin: 07/04/18 11:40 Dose: 30 ml Carvedilol (Coreg -) 25 mg PO BID [facility] Last Admin: 07/05/18 09:29 Dose: 25 mg Chlorthalidone (Hygroton -) 50 mg PO DAILY [facility] Last Admin: 07/05/18 11:47 Dose: 50 mg Clonidine (Catapres -) 0.3 mg PO TID [facility] Last Admin: 07/05/18 15:18 Dose: 0.3 mg Clopidogrel Bisulfate (Plavix -) 75 mg PO DAILY [facility] Last Admin: 07/05/18 09:29 Dose: 75 mg Enalapril Maleate (Vasotec -) 20 mg PO BID [facility] Last Admin: 07/05/18 11:47 Dose: 20 mg Finasteride (Proscar -) 5 mg PO DAILY [facility] Last Admin: 07/05/18 09:29 Dose: 5 mg Glimepiride (Amaryl -) 1 mg PO DAILY@0700 [facility] Last Admin: 07/05/18 06:17 Dose: 1 mg Heparin Sodium (Porcine) (Heparin -) 5,000 unit SQ BID [facility] Last Admin: 07/05/18 09:30 Dose: 5,000 unit Isosorbide Mononitrate (Imdur -) 120 mg PO DAILY [facility] Last Admin: 07/05/18 09:30 Dose: 120 mg Minoxidil (Lonitin -) 5 mg PO DAILY [facility] Last Admin: 07/05/18 13:45 Dose: 5 mg Torsemide (Demadex -) 40 mg PO DAILY [facility] Last Admin: 07/05/18 09:28 Dose: 40 mg - Objective Vital Signs: Vital Signs Temperature 97.7 F 07/05/18 06:00 Pulse Rate 48 L 07/05/18 15:22 Respiratory Rate 20 07/05/18 11:45 Blood Pressure 191/86 H 07/05/18 15:22 O2 Sat by Pulse Oximetry (%) 98 07/05/18 09:00 Constitutional: Yes: Calm Eyes: Yes: Conjunctiva Clear HENT: Yes: Atraumatic Neck: Yes: Supple Cardiovascular: Yes: S1, S2 Respiratory: Yes: CTA Bilaterally, On Nasal O2 Gastrointestinal: Yes: Soft Genitourinary: Yes: WNL Edema: Yes Edema: LLE: 2+, RLE: 2+ Integumentary: Yes: Venous Stasis Changes Neurological: Yes: Oriented Psychiatric: Yes: Oriented Labs: CBC, BMP 07/02/18 05:30 07/04/18 05:40 INR, PTT INR 1.13 (0.83-1.09) H 07/01/18 15:25 Assessment/Plan Current Medications Generic Name Dose Route Start Last Admin Trade Name Freq PRN Reason Stop Dose Admin Aspirin 81 mg 07/02/18 10:00 07/05/18 09:29 Asa - PO 81 mg DAILY [facility] Administration Bismuth Subsalicylate 30 ml 07/04/18 09:04 07/04/18 11:40 Pepto-Bismol Liquid - PO 30 ml Q12H PRN Administration DIARRHEA Carvedilol 25 mg 07/02/18 10:00 07/05/18 09:29 Coreg - PO 25 mg BID [facility] Administration Chlorthalidone 50 mg 07/04/18 10:00 07/05/18 11:47 Hygroton - PO 50 mg DAILY [facility] Administration Clonidine 0.3 mg 07/03/18 14:00 07/05/18 15:18 Catapres - PO 0.3 mg TID [facility]I Administration Clopidogrel Bisulfate 75 mg 07/02/18 10:00 07/05/18 09:29 Plavix - PO 75 mg DAILY [facility] Administration Enalapril Maleate 20 mg 07/03/18 11:30 07/05/18 11:47 Vasotec - PO 20 mg BID [facility] Administration Finasteride 5 mg 07/02/18 10:00 07/05/18 09:29 Proscar - PO 5 mg DAILY [facility] Administration Glimepiride 1 mg 07/02/18 07:00 07/05/18 06:17 Amaryl - PO 1 mg DAILY@0700 [facility] Administration Heparin Sodium (Porcine) 5,000 unit 07/01/18 22:00 07/05/18 09:30 Heparin - SQ 5,000 unit BID [facility] Administration Isosorbide Mononitrate 120 mg 07/04/18 09:51 07/05/18 09:30 Imdur - PO 120 mg DAILY [facility] Administration Minoxidil 5 mg 07/05/18 10:45 07/05/18 13:45 Lonitin - PO 5 mg DAILY [facility] Administration Torsemide 40 mg 07/03/18 12:30 07/05/18 09:28 Demadex - PO 40 mg DAILY [facility] Administration Impression 1. CKD vs MIKI 2. HTN - resistant 3. renal artery stenosis 4. DM 5. fluid overload 6. chf dialstolic Plan - add minoxidil - cont other meds - check renal function - he had negative workup for ABIGAIL in outside facility - check metanephrines - discussed with cardio Dr Wise
[2018-07-06] MEDS: cloNIDine HCL 0.1 MG TABLET PO SCH ×3 (05:36→21:41)
[2018-07-06] MEDS: GLIMEPIRIDE 1 MG TABLET (FP) PO SCH (06:27)
[2018-07-06 07:47] LABS: ALBUMIN 2.9 g/dl (3.4-5.0); ALK PHOS 76 U/L (45-117); ANION GAP 6 MMOL/L (8-16); BILIRUBIN,TOTAL 0.6 mg/dL (0.2-1); BLOOD UREA NITROGEN 48 mg/dL (7-18); CALCIUM 8.5 mg/dL (8.5-10.1); CHLORIDE 104 mmol/L (98-107); CO2 27 mmol/L (21-32); CREATININE 1.7 mg/dL (0.55-1.3); GLUCOSE,RANDOM 142 mg/dL (74-106); POTASSIUM 4.3 mmol/L (3.5-5.1); SGOT/AST 22 U/L (15-37); SGPT/ALT 21 U/L (13-61); SODIUM 136 mmol/L (136-145); TOT PROT 5.8 g/dl (6.4-8.2)
--- NOTE | 2018-07-06 09:08 | PN ---
Progress Note, Physician - Current Medication List Current Medications: Active Medications Aspirin (Asa -) 81 mg PO DAILY [facility] Last Admin: 07/05/18 09:29 Dose: 81 mg Bismuth Subsalicylate (Pepto-Bismol Liquid -) 30 ml PO Q12H PRN PRN Reason: DIARRHEA Last Admin: 07/04/18 11:40 Dose: 30 ml Carvedilol (Coreg -) 25 mg PO BID [facility] Last Admin: 07/05/18 22:44 Dose: 25 mg Chlorthalidone (Hygroton -) 50 mg PO DAILY [facility] Last Admin: 07/05/18 11:47 Dose: 50 mg Clonidine (Catapres -) 0.3 mg PO TID [facility] Last Admin: 07/06/18 05:36 Dose: 0.3 mg Clopidogrel Bisulfate (Plavix -) 75 mg PO DAILY [facility] Last Admin: 07/05/18 09:29 Dose: 75 mg Enalapril Maleate (Vasotec -) 20 mg PO BID [facility] Last Admin: 07/05/18 22:44 Dose: 20 mg Finasteride (Proscar -) 5 mg PO DAILY [facility] Last Admin: 07/05/18 09:29 Dose: 5 mg Glimepiride (Amaryl -) 1 mg PO DAILY@0700 [facility] Last Admin: 07/06/18 06:27 Dose: 1 mg Heparin Sodium (Porcine) (Heparin -) 5,000 unit SQ BID [facility] Last Admin: 07/05/18 22:45 Dose: 5,000 unit Isosorbide Mononitrate (Imdur -) 120 mg PO DAILY [facility] Last Admin: 07/05/18 09:30 Dose: 120 mg Minoxidil (Lonitin -) 5 mg PO DAILY [facility] Last Admin: 07/05/18 13:45 Dose: 5 mg Torsemide (Demadex -) 40 mg PO DAILY [facility] Last Admin: 07/05/18 09:28 Dose: 40 mg - Objective Vital Signs: Vital Signs Temperature 98.2 F 07/06/18 09:00 Pulse Rate 48 L 07/06/18 09:00 Respiratory Rate 18 07/06/18 09:00 Blood Pressure 164/64 07/06/18 09:00 O2 Sat by Pulse Oximetry (%) 96 07/06/18 09:00 Eyes: Yes: WNL, Conjunctiva Clear, EOM Intact HENT: Yes: WNL, Atraumatic, Normocephalic Neck: Yes: WNL, Supple, Trachea Midline Cardiovascular: Yes: WNL, Regular Rate and Rhythm Respiratory: Yes: WNL, Regular, CTA Bilaterally Gastrointestinal: Yes: WNL, Normal Bowel Sounds Genitourinary: Yes: WNL Musculoskeletal: Yes: WNL Extremities: Yes: WNL Edema: Yes Edema: LLE: 2+, RLE: 2+ Integumentary: Yes: WNL Neurological: Yes: WNL, Alert, Oriented ...Motor Strength: WNL Psychiatric: Yes: WNL Labs: CBC, BMP 07/02/18 05:30 07/06/18 05:30 INR, PTT INR 1.13 (0.83-1.09) H 07/01/18 15:25 Assessment/Plan 07/02/2018 Echo: Borderline cLVH, normal LV and RV size and fxn, LVEF 60-65%, mild LAE, tr MR, TR, mild pericardial effusions 05/13/20188 Echo: Mild cLVH, normal LVEF 55%, PFO with L->R shunt 07/02/2018 Renal US: No hydro 05/23/2018 No evidence of renal artery stenosis 1. Acute hypoxic respiratory failure referable to 2. Acute on chronic diastolic heart failure with subendocardial ischemic injury 3. Resistant hypertension 4. Type 2 DM 5. H/o stroke 6. CKD, no renal artery stenosis on imaging 7. Allergies to calcium channel blockers and hydralazine 8. RSD with RUE crush injury P:1. Oral diuresis with monitor diuretic response, renal fxn and electrolytes 2. Troponins have peaked 3. Continue ASA 81 qd, vasotec 20 bid (captopril unavailable), chlorthalidone 50 qd, Plavix 75 qd, increase Imdur 120 qd, carvedilol 25 bid, clonidine 0.3 tid and add minoxidil 5 qd with uptitration as hemodynamics tolerate 4. Review of records from [facility] and [facility] confirm resistant HTN 5. Studies on renal sympathetic denervation for resistant HTN did not show efficacy coverage for dr. Brito
[2018-07-06] MEDS ORDERED: PT OWN MED DRAWER 7, Y5N ONE (09:45)
[2018-07-06] MEDS: MINOXIDIL 2.5 MG TABLET PO SCH (09:47)
[2018-07-06] MEDS: ISOSORBIDE MONONITRATE 60 MG TAB.SR.24H (FP) PO SCH (09:48)
[2018-07-06] MEDS: TORSEMIDE 20 MG TABLET (FP) PO SCH (09:48)
[2018-07-06] MEDS: ENALAPRIL MALEATE 10 MG TABLET (FP) PO SCH ×2 (09:48→21:41)
[2018-07-06] MEDS: CARVEDILOL 25 MG TABLET (FP) PO SCH ×2 (09:48→21:41)
[2018-07-06] MEDS: ASPIRIN 81 MG CHEWABLE TABLETS PO SCH (09:48)
[2018-07-06] MEDS: CLOPIDOGREL BISULFATE 75 MG TABLET (FP) PO SCH (09:48)
[2018-07-06] MEDS: CHLORTHALIDONE 25 MG TABLET PO SCH (09:48)
[2018-07-06] MEDS: HEPARIN NA (PORCINE) 5,000 UNITS/ML 1ML VIAL SQ SCH ×2 (09:49→21:41)
[2018-07-06] MEDS: FINASTERIDE 5 MG TABLET (FP) PO SCH (09:49)
--- NOTE | 2018-07-06 13:18 | PN ---
Progress Note, Physician History of Present Illness: feeling dizzy..bp low today - Current Medication List Current Medications: Active Medications Aspirin (Asa -) 81 mg PO DAILY [facility] Last Admin: 07/06/18 09:48 Dose: 81 mg Bismuth Subsalicylate (Pepto-Bismol Liquid -) 30 ml PO Q12H PRN PRN Reason: DIARRHEA Last Admin: 07/04/18 11:40 Dose: 30 ml Carvedilol (Coreg -) 25 mg PO BID [facility] Last Admin: 07/06/18 09:48 Dose: 25 mg Chlorthalidone (Hygroton -) 50 mg PO DAILY [facility] Last Admin: 07/06/18 09:48 Dose: 50 mg Clonidine (Catapres -) 0.3 mg PO TID [facility] Last Admin: 07/06/18 05:36 Dose: 0.3 mg Clopidogrel Bisulfate (Plavix -) 75 mg PO DAILY [facility] Last Admin: 07/06/18 09:48 Dose: 75 mg Enalapril Maleate (Vasotec -) 20 mg PO BID [facility] Last Admin: 07/06/18 09:48 Dose: 20 mg Finasteride (Proscar -) 5 mg PO DAILY [facility] Last Admin: 07/06/18 09:49 Dose: 5 mg Glimepiride (Amaryl -) 1 mg PO DAILY@0700 [facility] Last Admin: 07/06/18 06:27 Dose: 1 mg Heparin Sodium (Porcine) (Heparin -) 5,000 unit SQ BID [facility] Last Admin: 07/06/18 09:49 Dose: 5,000 unit Isosorbide Mononitrate (Imdur -) 120 mg PO DAILY [facility] Last Admin: 07/06/18 09:48 Dose: 120 mg Minoxidil (Lonitin -) 5 mg PO DAILY [facility] Last Admin: 07/06/18 09:47 Dose: 5 mg Torsemide (Demadex -) 40 mg PO DAILY [facility] Last Admin: 07/06/18 09:48 Dose: 40 mg - Objective Vital Signs: Vital Signs Temperature 98.2 F 07/06/18 09:00 Pulse Rate 48 L 07/06/18 09:00 Respiratory Rate 18 07/06/18 09:00 Blood Pressure 164/64 07/06/18 09:00 O2 Sat by Pulse Oximetry (%) 96 07/06/18 09:00 Constitutional: Yes: No Distress HENT: Yes: Atraumatic Neck: Yes: Supple Cardiovascular: Yes: Regular Rate and Rhythm Respiratory: Yes: CTA Bilaterally Gastrointestinal: Yes: Normal Bowel Sounds Extremities: Yes: Other (wound llex) Edema: Yes Edema: LLE: 3+, RLE: 3+ Neurological: Yes: Alert, Oriented Labs: CBC, BMP 07/02/18 05:30 07/06/18 05:30 INR, PTT INR 1.13 (0.83-1.09) H 07/01/18 15:25 Problem List - Problems (1) Dyspnea Assessment/Plan: on diuretics...much improved monitor renal functions Code(s): R06.00 - DYSPNEA, UNSPECIFIED (2) Acute diastolic (congestive) heart failure Assessment/Plan: continue home meds cardiology on board Code(s): I50.31 - ACUTE DIASTOLIC (CONGESTIVE) HEART FAILURE (3) CKD (chronic kidney disease) Assessment/Plan: monitor renal consult reviewed Code(s): N18.9 - CHRONIC KIDNEY DISEASE, UNSPECIFIED Qualifiers: Chronic kidney disease stage: stage 2 (mild) Qualified Code(s): N18.2 - Chronic kidney disease, stage 2 (mild) (4) Type 2 diabetes mellitus Assessment/Plan: on meds monitor bgms Code(s): E11.9 - TYPE 2 DIABETES MELLITUS WITHOUT COMPLICATIONS Qualifiers: Diabetes mellitus intermediate insulin use: without terminal gauger use (5) Hypertensive emergency Assessment/Plan: on meds bp low today feeling dizzy monitor bp Code(s): I16.1 - HYPERTENSIVE EMERGENCY (6) Subendocardial ischemia Assessment/Plan: fu troponins on tele Code(s): I24.8 - OTHER FORMS OF ACUTE ISCHEMIC HEART DISEASE
--- NOTE | 2018-07-06 15:51 | PN ---
Progress Note, Physician History of Present Illness: Pt seen and examined at bedside. He is awake and alert. His blood pressure is starting to improve. - Current Medication List Current Medications: Active Medications Aspirin (Asa -) 81 mg PO DAILY [facility] Last Admin: 07/06/18 09:48 Dose: 81 mg Bismuth Subsalicylate (Pepto-Bismol Liquid -) 30 ml PO Q12H PRN PRN Reason: DIARRHEA Last Admin: 07/04/18 11:40 Dose: 30 ml Carvedilol (Coreg -) 25 mg PO BID [facility] Last Admin: 07/06/18 09:48 Dose: 25 mg Chlorthalidone (Hygroton -) 50 mg PO DAILY [facility] Last Admin: 07/06/18 09:48 Dose: 50 mg Clonidine (Catapres -) 0.3 mg PO TID [facility] Last Admin: 07/06/18 13:58 Dose: Not Given Clopidogrel Bisulfate (Plavix -) 75 mg PO DAILY [facility] Last Admin: 07/06/18 09:48 Dose: 75 mg Enalapril Maleate (Vasotec -) 20 mg PO BID [facility] Last Admin: 07/06/18 09:48 Dose: 20 mg Finasteride (Proscar -) 5 mg PO DAILY [facility] Last Admin: 07/06/18 09:49 Dose: 5 mg Glimepiride (Amaryl -) 1 mg PO DAILY@0700 [facility] Last Admin: 07/06/18 06:27 Dose: 1 mg Heparin Sodium (Porcine) (Heparin -) 5,000 unit SQ BID [facility] Last Admin: 07/06/18 09:49 Dose: 5,000 unit Isosorbide Mononitrate (Imdur -) 120 mg PO DAILY [facility] Last Admin: 07/06/18 09:48 Dose: 120 mg Minoxidil (Lonitin -) 5 mg PO DAILY [facility] Last Admin: 07/06/18 09:47 Dose: 5 mg Torsemide (Demadex -) 40 mg PO DAILY [facility] Last Admin: 07/06/18 09:48 Dose: 40 mg - Objective Vital Signs: Vital Signs Temperature 98.0 F 07/06/18 13:55 Pulse Rate 48 L 07/06/18 15:36 Respiratory Rate 18 07/06/18 15:36 Blood Pressure 158/60 07/06/18 15:36 O2 Sat by Pulse Oximetry (%) 96 07/06/18 09:00 Constitutional: Yes: Calm Eyes: Yes: Conjunctiva Clear HENT: Yes: Atraumatic Neck: Yes: Supple Cardiovascular: Yes: S1, S2 Respiratory: Yes: CTA Bilaterally, On Nasal O2 Gastrointestinal: Yes: Soft, Abdomen, Obese Genitourinary: Yes: WNL Extremities: Yes: WNL Edema: Yes Edema: LLE: 1+, RLE: 1+ Neurological: Yes: Oriented Psychiatric: Yes: Oriented Labs: CBC, BMP 07/02/18 05:30 07/06/18 05:30 INR, PTT INR 1.13 (0.83-1.09) H 07/01/18 15:25 Assessment/Plan Current Medications Generic Name Dose Route Start Last Admin Trade Name Freq PRN Reason Stop Dose Admin Aspirin 81 mg 07/02/18 10:00 07/06/18 09:48 Asa - PO 81 mg DAILY [facility] Administration Bismuth Subsalicylate 30 ml 07/04/18 09:04 07/04/18 11:40 Pepto-Bismol Liquid - PO 30 ml Q12H PRN Administration DIARRHEA Carvedilol 25 mg 07/02/18 10:00 07/06/18 09:48 Coreg - PO 25 mg BID [facility] Administration Chlorthalidone 50 mg 07/04/18 10:00 07/06/18 09:48 Hygroton - PO 50 mg DAILY [facility] Administration Clonidine 0.3 mg 07/03/18 14:00 07/06/18 13:58 Catapres - PO Not Given TID [facility] Clopidogrel Bisulfate 75 mg 07/02/18 10:00 07/06/18 09:48 Plavix - PO 75 mg DAILY [facility] Administration Enalapril Maleate 20 mg 07/03/18 11:30 07/06/18 09:48 Vasotec - PO 20 mg BID [facility] Administration Finasteride 5 mg 07/02/18 10:00 07/06/18 09:49 Proscar - PO 5 mg DAILY [facility] Administration Glimepiride 1 mg 07/02/18 07:00 07/06/18 06:27 Amaryl - PO 1 mg DAILY@0700 [facility] Administration Heparin Sodium (Porcine) 5,000 unit 07/01/18 22:00 07/06/18 09:49 Heparin - SQ 5,000 unit BID [facility] Administration Isosorbide Mononitrate 120 mg 07/04/18 09:51 07/06/18 09:48 Imdur - PO 120 mg DAILY [facility] Administration Minoxidil 5 mg 07/05/18 10:45 07/06/18 09:47 Lonitin - PO 5 mg DAILY [facility] Administration Torsemide 40 mg 07/03/18 12:30 07/06/18 09:48 Demadex - PO 40 mg DAILY [facility] Administration Impression 1. CKD vs MIKI 2. HTN - resistant 3. renal artery stenosis 4. DM 5. fluid overload 6. chf dialstolic Plan - cont current meds - bp is starting to respond - cont to monitor closely - unable to check metanephrines as inpt per policy - he had negative workup for ABIGAIL in outside facility Dr Wise
[2018-07-07] MEDS: GLIMEPIRIDE 1 MG TABLET (FP) PO SCH (06:16)
[2018-07-07] MEDS: cloNIDine HCL 0.1 MG TABLET PO SCH ×3 (06:16→22:13)
[2018-07-07 07:59] LABS: ANION GAP 9 MMOL/L (8-16); BLOOD UREA NITROGEN 50 mg/dL (7-18); CALCIUM 8.4 mg/dL (8.5-10.1); CHLORIDE 103 mmol/L (98-107); CO2 24 mmol/L (21-32); CREATININE 1.7 mg/dL (0.55-1.3); GLUCOSE,RANDOM 130 mg/dL (74-106); POTASSIUM 4.2 mmol/L (3.5-5.1); SODIUM 136 mmol/L (136-145)
[2018-07-07] MEDS ORDERED: PT OWN MED DRAWER 7, Y5N ONE (08:58)
--- NOTE | 2018-07-07 09:35 | PN ---
Progress Note, Physician - Current Medication List Current Medications: Active Medications Aspirin (Asa -) 81 mg PO DAILY [facility] Last Admin: 07/06/18 09:48 Dose: 81 mg Bismuth Subsalicylate (Pepto-Bismol Liquid -) 30 ml PO Q12H PRN PRN Reason: DIARRHEA Last Admin: 07/04/18 11:40 Dose: 30 ml Carvedilol (Coreg -) 25 mg PO BID [facility] Last Admin: 07/06/18 21:41 Dose: 25 mg Chlorthalidone (Hygroton -) 50 mg PO DAILY [facility] Last Admin: 07/06/18 09:48 Dose: 50 mg Clonidine (Catapres -) 0.3 mg PO TID [facility] Last Admin: 07/07/18 06:16 Dose: 0.3 mg Clopidogrel Bisulfate (Plavix -) 75 mg PO DAILY [facility] Last Admin: 07/06/18 09:48 Dose: 75 mg Enalapril Maleate (Vasotec -) 20 mg PO BID [facility] Last Admin: 07/06/18 21:41 Dose: 20 mg Finasteride (Proscar -) 5 mg PO DAILY [facility] Last Admin: 07/06/18 09:49 Dose: 5 mg Glimepiride (Amaryl -) 1 mg PO DAILY@0700 [facility] Last Admin: 07/07/18 06:16 Dose: 1 mg Heparin Sodium (Porcine) (Heparin -) 5,000 unit SQ BID [facility] Last Admin: 07/06/18 21:41 Dose: 5,000 unit Isosorbide Mononitrate (Imdur -) 120 mg PO DAILY [facility] Last Admin: 07/06/18 09:48 Dose: 120 mg Minoxidil (Lonitin -) 5 mg PO DAILY [facility] Last Admin: 07/06/18 09:47 Dose: 5 mg Torsemide (Demadex -) 40 mg PO DAILY [facility] Last Admin: 07/06/18 09:48 Dose: 40 mg - Objective Vital Signs: Vital Signs Temperature 98.1 F 07/07/18 06:00 Pulse Rate 56 L 07/07/18 06:00 Respiratory Rate 18 07/07/18 08:14 Blood Pressure 211/90 H 07/07/18 06:00 O2 Sat by Pulse Oximetry (%) 98 07/07/18 08:14 Eyes: Yes: WNL, Conjunctiva Clear, EOM Intact HENT: Yes: WNL, Atraumatic, Normocephalic Neck: Yes: WNL, Supple, Trachea Midline Cardiovascular: Yes: WNL, Regular Rate and Rhythm Respiratory: Yes: WNL, Regular, CTA Bilaterally Gastrointestinal: Yes: WNL, Normal Bowel Sounds Genitourinary: Yes: WNL Musculoskeletal: Yes: WNL Extremities: Yes: WNL Edema: Yes Edema: LLE: 3+, RLE: 3+ Integumentary: Yes: WNL Neurological: Yes: WNL, Alert, Oriented ...Motor Strength: WNL Psychiatric: Yes: WNL Labs: CBC, BMP 07/02/18 05:30 07/07/18 05:30 INR, PTT INR 1.13 (0.83-1.09) H 07/01/18 15:25 Assessment/Plan 07/02/2018 Echo: Borderline cLVH, normal LV and RV size and fxn, LVEF 60-65%, mild LAE, tr MR, TR, mild pericardial effusions 05/13/20188 Echo: Mild cLVH, normal LVEF 55%, PFO with L->R shunt 07/02/2018 Renal US: No hydro 05/23/2018 No evidence of renal artery stenosis 1. Acute hypoxic respiratory failure referable to 2. Acute on chronic diastolic heart failure with subendocardial ischemic injury 3. Resistant hypertension 4. Type 2 DM 5. H/o stroke 6. CKD, no renal artery stenosis on imaging 7. Allergies to calcium channel blockers and hydralazine 8. RSD with RUE crush injury P:1. Oral diuresis with monitor diuretic response, renal fxn and electrolytes 2. Troponins have peaked 3. Continue ASA 81 qd, vasotec 20 bid (captopril unavailable), chlorthalidone 50 qd, Plavix 75 qd, increase Imdur 120 qd, carvedilol 25 bid, clonidine 0.3 tid and add minoxidil 5 qd with uptitration as hemodynamics tolerate 4. Review of records from [facility] and [facility] confirm resistant HTN 5. Studies on renal sympathetic denervation for resistant HTN did not show efficacy coverage for dr. Brito
[2018-07-07] MEDS: CLOPIDOGREL BISULFATE 75 MG TABLET (FP) PO SCH (10:05)
[2018-07-07] MEDS: ISOSORBIDE MONONITRATE 60 MG TAB.SR.24H (FP) PO SCH (10:05)
[2018-07-07] MEDS: ENALAPRIL MALEATE 10 MG TABLET (FP) PO SCH ×2 (10:05→22:14)
[2018-07-07] MEDS: TORSEMIDE 20 MG TABLET (FP) PO SCH (10:05)
[2018-07-07] MEDS: CARVEDILOL 25 MG TABLET (FP) PO SCH ×2 (10:06→22:14)
[2018-07-07] MEDS: CHLORTHALIDONE 25 MG TABLET PO SCH (10:06)
[2018-07-07] MEDS: FINASTERIDE 5 MG TABLET (FP) PO SCH (10:06)
[2018-07-07] MEDS: MINOXIDIL 2.5 MG TABLET PO SCH (10:06)
[2018-07-07] MEDS: HEPARIN NA (PORCINE) 5,000 UNITS/ML 1ML VIAL SQ SCH ×2 (10:07→22:14)
[2018-07-07] MEDS: ASPIRIN 81 MG CHEWABLE TABLETS PO SCH (10:08)
--- NOTE | 2018-07-07 12:30 | CON.ID ---
Consult - Past Medical History [employer]: Yes: CVA Cardio/Vascular: Yes: HTN Renal/: Yes: Renal Inusuff, Other (renal artery stenosis) Endocrine: Yes: Diabetes Mellitus - Alcohol/Substance Use Hx Alcohol Use: No - Smoking History Smoking history: Former smoker Have you smoked in the past 12 months: No Home Medications - Allergies Allergies/Adverse Reactions: Allergies Allergy/AdvReac Type Severity Reaction Status Date / Time Calcium Channel Blocking Allergy Severe Swelling Verified 07/01/18 17:16 Agent Dilt hydralazine Allergy Severe Swelling Verified 07/01/18 17:16 strawberry Allergy Severe Swelling Verified 07/01/18 17:16 - Home Medications Home Medications: Ambulatory Orders Aspirin 81 mg PO DAILY 07/01/18 Clopidogrel Bisulfate [Clopidogrel] 75 mg PO DAILY 07/01/18 Finasteride 5 mg PO DAILY 07/01/18 Furosemide [Lasix] 40 mg PO DAILY 07/01/18 Glimepiride 1 mg PO DAILY 07/01/18 Isosorbide Mononitrate [Isosorbide Mononitrate ER] 60 mg PO DAILY 07/01/18 Lisinopril 5 mg PO DAILY 07/01/18 Clonidine HCl [Catapres] 0.2 mg PO BID 07/02/18 Physical Exam Vital Signs: Vital Signs Temperature 98.1 F 07/07/18 10:04 Pulse Rate 58 L 07/07/18 10:04 Respiratory Rate 19 07/07/18 10:04 Blood Pressure 164/53 L 07/07/18 10:04 O2 Sat by Pulse Oximetry (%) 98 07/07/18 08:14 Labs: CBC, BMP 07/02/18 05:30 07/07/18 05:30
[2018-07-07] MEDS: DOXYCYCLINE HYCLATE 100 MG CAPSULE PO SCH (17:27)
--- NOTE | 2018-07-07 18:27 | PN ---
Progress Note, Physician History of Present Illness: Pt seen and examined at bedside. He is awake and alert. He denies shortness of breath. His blood pressure is improving. - Current Medication List Current Medications: Active Medications Aspirin (Asa -) 81 mg PO DAILY [facility] Last Admin: 07/07/18 10:08 Dose: 81 mg Bismuth Subsalicylate (Pepto-Bismol Liquid -) 30 ml PO Q12H PRN PRN Reason: DIARRHEA Last Admin: 07/04/18 11:40 Dose: 30 ml Carvedilol (Coreg -) 25 mg PO BID [facility] Last Admin: 07/07/18 10:06 Dose: 25 mg Chlorthalidone (Hygroton -) 50 mg PO DAILY [facility] Last Admin: 07/07/18 10:06 Dose: 50 mg Clonidine (Catapres -) 0.3 mg PO TID [facility] Last Admin: 07/07/18 13:43 Dose: 0.3 mg Clopidogrel Bisulfate (Plavix -) 75 mg PO DAILY [facility] Last Admin: 07/07/18 10:05 Dose: 75 mg Doxycycline Hyclate (Vibramycin -) 100 mg PO BID@1000,1800 [facility] Last Admin: 07/07/18 17:27 Dose: 100 mg Enalapril Maleate (Vasotec -) 20 mg PO BID [facility] Last Admin: 07/07/18 10:05 Dose: 20 mg Finasteride (Proscar -) 5 mg PO DAILY [facility] Last Admin: 07/07/18 10:06 Dose: 5 mg Glimepiride (Amaryl -) 1 mg PO DAILY@0700 [facility] Last Admin: 07/07/18 06:16 Dose: 1 mg Heparin Sodium (Porcine) (Heparin -) 5,000 unit SQ BID [facility] Last Admin: 07/07/18 10:07 Dose: 5,000 unit Isosorbide Mononitrate (Imdur -) 120 mg PO DAILY [facility] Last Admin: 07/07/18 10:05 Dose: 120 mg Minoxidil (Lonitin -) 5 mg PO DAILY [facility] Last Admin: 07/07/18 10:06 Dose: 5 mg Torsemide (Demadex -) 40 mg PO DAILY [facility] Last Admin: 07/07/18 10:05 Dose: 40 mg - Objective Vital Signs: Vital Signs Temperature 97.8 F 07/07/18 13:27 Pulse Rate 53 L 07/07/18 16:01 Respiratory Rate 20 07/07/18 16:01 Blood Pressure 138/45 L 07/07/18 16:01 O2 Sat by Pulse Oximetry (%) 98 07/07/18 08:14 Constitutional: Yes: Calm Eyes: Yes: Conjunctiva Clear Cardiovascular: Yes: S1, S2 Gastrointestinal: Yes: Soft, Abdomen, Obese Genitourinary: Yes: WNL Musculoskeletal: Yes: WNL Edema: Yes Edema: LLE: 1+, RLE: 1+ Neurological: Yes: Oriented Psychiatric: Yes: Oriented Labs: CBC, BMP 07/02/18 05:30 07/07/18 05:30 INR, PTT INR 1.13 (0.83-1.09) H 07/01/18 15:25 Assessment/Plan Current Medications Generic Name Dose Route Start Last Admin Trade Name Freq PRN Reason Stop Dose Admin Aspirin 81 mg 07/02/18 10:00 07/07/18 10:08 Asa - PO 81 mg DAILY [facility] Administration Bismuth Subsalicylate 30 ml 07/04/18 09:04 07/04/18 11:40 Pepto-Bismol Liquid - PO 30 ml Q12H PRN Administration DIARRHEA Carvedilol 25 mg 07/02/18 10:00 07/07/18 10:06 Coreg - PO 25 mg BID [facility] Administration Chlorthalidone 50 mg 07/04/18 10:00 07/07/18 10:06 Hygroton - PO 50 mg DAILY [facility] Administration Clonidine 0.3 mg 07/03/18 14:00 07/07/18 13:43 Catapres - PO 0.3 mg TID [facility] Administration Clopidogrel Bisulfate 75 mg 07/02/18 10:00 07/07/18 10:05 Plavix - PO 75 mg DAILY [facility] Administration Doxycycline Hyclate 100 mg 07/07/18 18:00 07/07/18 17:27 Vibramycin - PO 100 mg BID@1000,1800 [facility] Administration Enalapril Maleate 20 mg 07/03/18 11:30 07/07/18 10:05 Vasotec - PO 20 mg BID [facility] Administration Finasteride 5 mg 07/02/18 10:00 07/07/18 10:06 Proscar - PO 5 mg DAILY [facility] Administration Glimepiride 1 mg 07/02/18 07:00 07/07/18 06:16 Amaryl - PO 1 mg DAILY@0700 [facility] Administration Heparin Sodium (Porcine) 5,000 unit 07/01/18 22:00 07/07/18 10:07 Heparin - SQ 5,000 unit BID [facility] Administration Isosorbide Mononitrate 120 mg 07/04/18 09:51 07/07/18 10:05 Imdur - PO 120 mg DAILY [facility] Administration Minoxidil 5 mg 07/05/18 10:45 07/07/18 10:06 Lonitin - PO 5 mg DAILY [facility] Administration Torsemide 40 mg 07/03/18 12:30 07/07/18 10:05 Demadex - PO 40 mg DAILY [facility] Administration Impression 1. CKD vs MIKI 2. HTN - resistant 3. renal artery stenosis 4. DM 5. fluid overload 6. 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
--- NOTE | 2018-07-07 21:42 | PN ---
Progress Note, Physician History of Present Illness: Pt denies any complaints - Current Medication List Current Medications: Active Medications Aspirin (Asa -) 81 mg PO DAILY [facility] Last Admin: 07/07/18 10:08 Dose: 81 mg Bismuth Subsalicylate (Pepto-Bismol Liquid -) 30 ml PO Q12H PRN PRN Reason: DIARRHEA Last Admin: 07/04/18 11:40 Dose: 30 ml Carvedilol (Coreg -) 25 mg PO BID [facility] Last Admin: 07/07/18 10:06 Dose: 25 mg Chlorthalidone (Hygroton -) 50 mg PO DAILY [facility] Last Admin: 07/07/18 10:06 Dose: 50 mg Clonidine (Catapres -) 0.3 mg PO TID [facility] Last Admin: 07/07/18 13:43 Dose: 0.3 mg Clopidogrel Bisulfate (Plavix -) 75 mg PO DAILY [facility] Last Admin: 07/07/18 10:05 Dose: 75 mg Doxycycline Hyclate (Vibramycin -) 100 mg PO BID@1000,1800 [facility] Last Admin: 07/07/18 17:27 Dose: 100 mg Enalapril Maleate (Vasotec -) 20 mg PO BID [facility] Last Admin: 07/07/18 10:05 Dose: 20 mg Finasteride (Proscar -) 5 mg PO DAILY [facility] Last Admin: 07/07/18 10:06 Dose: 5 mg Glimepiride (Amaryl -) 1 mg PO DAILY@0700 [facility] Last Admin: 07/07/18 06:16 Dose: 1 mg Heparin Sodium (Porcine) (Heparin -) 5,000 unit SQ BID [facility] Last Admin: 07/07/18 10:07 Dose: 5,000 unit Isosorbide Mononitrate (Imdur -) 120 mg PO DAILY [facility] Last Admin: 07/07/18 10:05 Dose: 120 mg Minoxidil (Lonitin -) 5 mg PO DAILY [facility] Last Admin: 07/07/18 10:06 Dose: 5 mg Torsemide (Demadex -) 40 mg PO DAILY [facility] Last Admin: 07/07/18 10:05 Dose: 40 mg - Objective Vital Signs: Vital Signs Temperature 97.9 F 07/07/18 18:00 Pulse Rate 47 L 07/07/18 18:00 Respiratory Rate 20 07/07/18 18:00 Blood Pressure 135/60 07/07/18 18:00 O2 Sat by Pulse Oximetry (%) 98 07/07/18 08:14 Constitutional: Yes: Obese Neck: Yes: WNL, Supple Cardiovascular: Yes: WNL, Regular Rate and Rhythm Respiratory: Yes: WNL, Regular, CTA Bilaterally Gastrointestinal: Yes: WNL, Normal Bowel Sounds, Soft, Abdomen, Obese Extremities: Yes: Other (B/L chronic ulcers) Edema: LLE: 1+, RLE: 1+ Labs: CBC, BMP 07/02/18 05:30 07/07/18 05:30 INR, PTT INR 1.13 (0.83-1.09) H 07/01/18 15:25 Problem List - Problems (1) Acute diastolic (congestive) heart failure Assessment/Plan: Cont diuresis Cont demadex Monitor electrolytes Code(s): I50.31 - ACUTE DIASTOLIC (CONGESTIVE) HEART FAILURE (2) HLD (hyperlipidemia) Code(s): E78.5 - HYPERLIPIDEMIA, UNSPECIFIED (3) CKD (chronic kidney disease) Assessment/Plan: ?H/O Renal artery stenosis As per renal Monitor bun/creatinine Code(s): N18.9 - CHRONIC KIDNEY DISEASE, UNSPECIFIED Qualifiers: Chronic kidney disease stage: stage 2 (mild) Qualified Code(s): N18.2 - Chronic kidney disease, stage 2 (mild) (4) Type 2 diabetes mellitus Assessment/Plan: Cont amaryl Code(s): E11.9 - TYPE 2 DIABETES MELLITUS WITHOUT COMPLICATIONS Qualifiers: 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
[2018-07-08] MEDS: cloNIDine HCL 0.1 MG TABLET PO SCH ×3 (05:29→21:11)
[2018-07-08] MEDS: GLIMEPIRIDE 1 MG TABLET (FP) PO SCH (06:17)
[2018-07-08 07:05] LABS: ALBUMIN 2.9 g/dl (3.4-5.0); ALK PHOS 67 U/L (45-117); ANION GAP 8 MMOL/L (8-16); BILIRUBIN,TOTAL 0.8 mg/dL (0.2-1); BLOOD UREA NITROGEN 50 mg/dL (7-18); CHLORIDE 102 mmol/L (98-107); CO2 28 mmol/L (21-32); CREATININE 1.9 mg/dL (0.55-1.3); GLUCOSE,RANDOM 150 mg/dL (74-106); POTASSIUM 4.2 mmol/L (3.5-5.1); SGOT/AST 20 U/L (15-37); SGPT/ALT 18 U/L (13-61); SODIUM 139 mmol/L (136-145); TOT PROT 5.5 g/dl (6.4-8.2)
--- NOTE | 2018-07-08 10:40 | PN ---
Progress Note, Physician History of Present Illness: Dyspnea, orthopnea, LE edema improving with diuresis, BP control improving with current regimen. - Current Medication List Current Medications: Active Medications Aspirin (Asa -) 81 mg PO DAILY [facility] Last Admin: 07/07/18 10:08 Dose: 81 mg Bismuth Subsalicylate (Pepto-Bismol Liquid -) 30 ml PO Q12H PRN PRN Reason: DIARRHEA Last Admin: 07/04/18 11:40 Dose: 30 ml Carvedilol (Coreg -) 25 mg PO BID [facility] Last Admin: 07/07/18 22:14 Dose: 25 mg Clonidine (Catapres -) 0.3 mg PO TID [facility] Last Admin: 07/08/18 05:29 Dose: 0.3 mg Clopidogrel Bisulfate (Plavix -) 75 mg PO DAILY [facility] Last Admin: 07/07/18 10:05 Dose: 75 mg Doxycycline Hyclate (Vibramycin -) 100 mg PO BID@1000,1800 [facility] Last Admin: 07/07/18 17:27 Dose: 100 mg Enalapril Maleate (Vasotec -) 20 mg PO BID [facility] Last Admin: 07/07/18 22:14 Dose: 20 mg Finasteride (Proscar -) 5 mg PO DAILY [facility] Last Admin: 07/07/18 10:06 Dose: 5 mg Glimepiride (Amaryl -) 1 mg PO DAILY@0700 [facility] Last Admin: 07/08/18 06:17 Dose: 1 mg Heparin Sodium (Porcine) (Heparin -) 5,000 unit SQ BID [facility] Last Admin: 07/07/18 22:14 Dose: 5,000 unit Isosorbide Mononitrate (Imdur -) 120 mg PO DAILY [facility] Last Admin: 07/07/18 10:05 Dose: 120 mg Minoxidil (Lonitin -) 5 mg PO DAILY [facility] Last Admin: 07/07/18 10:06 Dose: 5 mg Torsemide (Demadex -) 40 mg PO DAILY [facility] Last Admin: 07/07/18 10:05 Dose: 40 mg - Objective Vital Signs: Vital Signs Temperature 98.0 F 07/08/18 05:55 Pulse Rate 50 L 07/08/18 05:55 Respiratory Rate 20 07/08/18 05:55 Blood Pressure 175/78 H 07/08/18 05:55 O2 Sat by Pulse Oximetry (%) 97 07/07/18 21:00 Constitutional: Yes: No Distress, Calm Neck: Yes: Supple Cardiovascular: Yes: Regular Rate and Rhythm Respiratory: Yes: Regular, Diminished Gastrointestinal: Yes: Normal Bowel Sounds, Soft, Abdomen, Obese Edema: Yes Edema: LLE: 2+, RLE: 2+ Integumentary: Yes: Venous Stasis Changes Labs: CBC, BMP 07/02/18 05:30 07/08/18 05:30 INR, PTT INR 1.13 (0.83-1.09) H 07/01/18 15:25 Problem List - Problems (1) Acute diastolic (congestive) heart failure Code(s): I50.31 - ACUTE DIASTOLIC (CONGESTIVE) HEART FAILURE (2) Hypertensive emergency Code(s): I16.1 - HYPERTENSIVE EMERGENCY (3) Subendocardial ischemia Code(s): I24.8 - OTHER FORMS OF ACUTE ISCHEMIC HEART DISEASE (4) Type 2 diabetes mellitus Code(s): E11.9 - TYPE 2 DIABETES MELLITUS WITHOUT COMPLICATIONS Qualifiers: Diabetes mellitus assisted insulin use: without assisted use (5) CKD (chronic kidney disease) Code(s): N18.9 - CHRONIC KIDNEY DISEASE, UNSPECIFIED Qualifiers: Chronic kidney disease stage: stage 2 (mild) Qualified Code(s): N18.2 - Chronic kidney disease, stage 2 (mild) Assessment/Plan 07/02/2018 Echo: Borderline cLVH, normal LV and RV size and fxn, LVEF 60-65%, mild LAE, tr MR, TR, mild pericardial effusions 05/13/20188 Echo: Mild cLVH, normal LVEF 55%, PFO with L->R shunt 07/02/2018 Renal US: No hydro 05/23/2018 No evidence of renal artery stenosis 1. Acute hypoxic respiratory failure referable to 2. Acute on chronic diastolic heart failure with subendocardial ischemic injury 3. Resistant hypertension 4. Type 2 DM 5. H/o stroke 6. Acute on CKD, no renal artery stenosis on imaging 7. Allergies to calcium channel blockers and hydralazine 8. RSD with RUE crush injury P:1. Oral diuresis with Demadex 40 qd and monitor diuretic response, renal fxn and electrolytes 2. Troponins have peaked 3. Continue ASA 81 qd, vasotec 20 bid (captopril unavailable), chlorthalidone 50 qd, Plavix 75 qd, Imdur 120 qd, carvedilol 25 bid, clonidine 0.3 tid and minoxidil 5 qd with uptitration as hemodynamics tolerate 4. Review of records from [facility] and [facility] confirm resistant HTN 5. Studies on renal sympathetic denervation for resistant HTN did not show efficacy
[2018-07-08] MEDS: ISOSORBIDE MONONITRATE 60 MG TAB.SR.24H (FP) PO SCH (11:00)
[2018-07-08] MEDS: ENALAPRIL MALEATE 10 MG TABLET (FP) PO SCH (11:01)
[2018-07-08] MEDS: ASPIRIN 81 MG CHEWABLE TABLETS PO SCH (11:01)
[2018-07-08] MEDS: CARVEDILOL 25 MG TABLET (FP) PO SCH ×2 (11:01→21:12)
[2018-07-08] MEDS: TORSEMIDE 20 MG TABLET (FP) PO SCH (11:02)
[2018-07-08] MEDS: CLOPIDOGREL BISULFATE 75 MG TABLET (FP) PO SCH (11:03)
[2018-07-08] MEDS: FINASTERIDE 5 MG TABLET (FP) PO SCH (11:03)
[2018-07-08] MEDS: MINOXIDIL 2.5 MG TABLET PO SCH (11:04)
[2018-07-08] MEDS: HEPARIN NA (PORCINE) 5,000 UNITS/ML 1ML VIAL SQ SCH (11:04)
[2018-07-08] MEDS: DOXYCYCLINE HYCLATE 100 MG CAPSULE PO SCH ×2 (11:04→18:26)
[2018-07-08] MEDS: CHLORTHALIDONE 25 MG TABLET PO SCH (11:05)
--- NOTE | 2018-07-08 14:33 | PN ---
Progress Note, Physician History of Present Illness: patient stable no new issues - Current Medication List Current Medications: Active Medications Aspirin (Asa -) 81 mg PO DAILY [facility] Last Admin: 07/08/18 11:01 Dose: 81 mg Bismuth Subsalicylate (Pepto-Bismol Liquid -) 30 ml PO Q12H PRN PRN Reason: DIARRHEA Last Admin: 07/04/18 11:40 Dose: 30 ml Carvedilol (Coreg -) 25 mg PO BID [facility] Last Admin: 07/08/18 11:01 Dose: 25 mg Clonidine (Catapres -) 0.3 mg PO TID [facility] Last Admin: 07/08/18 05:29 Dose: 0.3 mg Clopidogrel Bisulfate (Plavix -) 75 mg PO DAILY [facility] Last Admin: 07/08/18 11:03 Dose: 75 mg Doxycycline Hyclate (Vibramycin -) 100 mg PO BID@1000,1800 [facility] Last Admin: 07/08/18 11:04 Dose: 100 mg Enalapril Maleate (Vasotec -) 20 mg PO BID [facility] Last Admin: 07/08/18 11:01 Dose: 20 mg Finasteride (Proscar -) 5 mg PO DAILY [facility] Last Admin: 07/08/18 11:03 Dose: 5 mg Glimepiride (Amaryl -) 1 mg PO DAILY@0700 [facility] Last Admin: 07/08/18 06:17 Dose: 1 mg Heparin Sodium (Porcine) (Heparin -) 5,000 unit SQ BID [facility] Last Admin: 07/08/18 11:04 Dose: 5,000 unit Isosorbide Mononitrate (Imdur -) 120 mg PO DAILY [facility] Last Admin: 07/08/18 11:00 Dose: 120 mg Minoxidil (Lonitin -) 5 mg PO DAILY [facility] Last Admin: 07/08/18 11:04 Dose: 5 mg Torsemide (Demadex -) 40 mg PO DAILY [facility] Last Admin: 07/08/18 11:02 Dose: 40 mg - Objective Vital Signs: Vital Signs Temperature 98.7 F 07/08/18 10:00 Pulse Rate 52 L 07/08/18 10:00 Respiratory Rate 20 07/08/18 09:00 Blood Pressure 205/68 H 07/08/18 10:00 O2 Sat by Pulse Oximetry (%) 98 07/08/18 09:00 Constitutional: Yes: No Distress, Calm Cardiovascular: Yes: Regular Rate and Rhythm Respiratory: Yes: Regular, CTA Bilaterally Gastrointestinal: Yes: Normal Bowel Sounds, Soft Musculoskeletal: Yes: WNL Extremities: Yes: Other Neurological: Yes: Alert, Oriented Psychiatric: Yes: Alert, Oriented Labs: CBC, BMP 07/02/18 05:30 07/08/18 05:30 INR, PTT INR 1.13 (0.83-1.09) H 07/01/18 15:25 Assessment/Plan Problem List - Problems (1) Dyspnea Code(s): R06.00 - DYSPNEA, UNSPECIFIED (2) Acute diastolic (congestive) heart failure Code(s): I50.31 - ACUTE DIASTOLIC (CONGESTIVE) HEART FAILURE (3) CKD (chronic kidney disease) Code(s): N18.9 - CHRONIC KIDNEY DISEASE, UNSPECIFIED Qualifiers: Chronic kidney disease stage: stage 2 (mild) Qualified Code(s): N18.2 - Chronic kidney disease, stage 2 (mild) (4) Type 2 diabetes mellitus Code(s): E11.9 - TYPE 2 DIABETES MELLITUS WITHOUT COMPLICATIONS Qualifiers: Diabetes mellitus senior living insulin use: without marine oil terminal 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
--- NOTE | 2018-07-08 16:45 | PN ---
Progress Note, Physician - Current Medication List Current Medications: Active Medications Aspirin (Asa -) 81 mg PO DAILY [facility] Last Admin: 07/08/18 11:01 Dose: 81 mg Bismuth Subsalicylate (Pepto-Bismol Liquid -) 30 ml PO Q12H PRN PRN Reason: DIARRHEA Last Admin: 07/04/18 11:40 Dose: 30 ml Carvedilol (Coreg -) 25 mg PO BID [facility] Last Admin: 07/08/18 11:01 Dose: 25 mg Clonidine (Catapres -) 0.3 mg PO TID [facility] Last Admin: 07/08/18 15:18 Dose: 0.3 mg Clopidogrel Bisulfate (Plavix -) 75 mg PO DAILY [facility] Last Admin: 07/08/18 11:03 Dose: 75 mg Doxycycline Hyclate (Vibramycin -) 100 mg PO BID@1000,1800 [facility] Last Admin: 07/08/18 11:04 Dose: 100 mg Enalapril Maleate (Vasotec -) 20 mg PO BID [facility] Last Admin: 07/08/18 11:01 Dose: 20 mg Finasteride (Proscar -) 5 mg PO DAILY [facility] Last Admin: 07/08/18 11:03 Dose: 5 mg Glimepiride (Amaryl -) 1 mg PO DAILY@0700 [facility] Last Admin: 07/08/18 06:17 Dose: 1 mg Heparin Sodium (Porcine) (Heparin -) 5,000 unit SQ BID [facility] Last Admin: 07/08/18 11:04 Dose: 5,000 unit Isosorbide Mononitrate (Imdur -) 120 mg PO DAILY [facility] Last Admin: 07/08/18 11:00 Dose: 120 mg Minoxidil (Lonitin -) 5 mg PO DAILY [facility] Last Admin: 07/08/18 11:04 Dose: 5 mg Torsemide (Demadex -) 40 mg PO DAILY [facility] Last Admin: 07/08/18 11:02 Dose: 40 mg - Objective Vital Signs: Vital Signs Temperature 98.4 F 07/08/18 14:10 Pulse Rate 53 L 07/08/18 14:10 Respiratory Rate 20 07/08/18 14:10 Blood Pressure 136/73 07/08/18 14:10 O2 Sat by Pulse Oximetry (%) 98 07/08/18 09:00 Constitutional: Yes: No Distress HENT: Yes: Atraumatic Neck: Yes: Supple Cardiovascular: Yes: Regular Rate and Rhythm Respiratory: Yes: CTA Bilaterally Extremities: Yes: Other (wound llex) Edema: Yes Edema: LLE: 2+, RLE: 2+ Neurological: Yes: Alert, Oriented Labs: CBC, BMP 07/02/18 05:30 07/08/18 05:30 INR, PTT INR 1.13 (0.83-1.09) H 07/01/18 15:25 Problem List - Problems (1) Dyspnea Assessment/Plan: on diuretics...much improved monitor renal functions Code(s): R06.00 - DYSPNEA, UNSPECIFIED (2) Acute diastolic (congestive) heart failure Assessment/Plan: monitor bp karlos and diuretic on hold Code(s): I50.31 - ACUTE DIASTOLIC (CONGESTIVE) HEART FAILURE (3) CKD (chronic kidney disease) Assessment/Plan: monitor renal consult reviewed Code(s): N18.9 - CHRONIC KIDNEY DISEASE, UNSPECIFIED Qualifiers: Chronic kidney disease stage: stage 2 (mild) Qualified Code(s): N18.2 - Chronic kidney disease, stage 2 (mild) (4) Type 2 diabetes mellitus Assessment/Plan: on meds monitor bgms Code(s): E11.9 - TYPE 2 DIABETES MELLITUS WITHOUT COMPLICATIONS Qualifiers: Diabetes mellitus driller and reamer insulin use: without driller and reamer use (5) Hypertensive emergency Assessment/Plan: on meds bp low today feeling dizzy monitor bp karlos and diuretic on hold Code(s): I16.1 - HYPERTENSIVE EMERGENCY (6) Subendocardial ischemia Assessment/Plan: fu troponins on tele Code(s): I24.8 - OTHER FORMS OF ACUTE ISCHEMIC HEART DISEASE
--- NOTE | 2018-07-08 17:34 | PN ---
Progress Note, Physician History of Present Illness: Pt seen and examined at bedside. He is awake and alert. He denies dysuria. - Current Medication List Current Medications: Active Medications Aspirin (Asa -) 81 mg PO DAILY [facility] Last Admin: 07/08/18 11:01 Dose: 81 mg Bismuth Subsalicylate (Pepto-Bismol Liquid -) 30 ml PO Q12H PRN PRN Reason: DIARRHEA Last Admin: 07/04/18 11:40 Dose: 30 ml Carvedilol (Coreg -) 25 mg PO BID [facility] Last Admin: 07/08/18 11:01 Dose: 25 mg Clonidine (Catapres -) 0.3 mg PO TID [facility] Last Admin: 07/08/18 15:18 Dose: 0.3 mg Clopidogrel Bisulfate (Plavix -) 75 mg PO DAILY [facility] Last Admin: 07/08/18 11:03 Dose: 75 mg Doxycycline Hyclate (Vibramycin -) 100 mg PO BID@1000,1800 [facility] Last Admin: 07/08/18 11:04 Dose: 100 mg Enalapril Maleate (Vasotec -) 20 mg PO BID [facility] Last Admin: 07/08/18 11:01 Dose: 20 mg Finasteride (Proscar -) 5 mg PO DAILY [facility] Last Admin: 07/08/18 11:03 Dose: 5 mg Glimepiride (Amaryl -) 1 mg PO DAILY@0700 [facility] Last Admin: 07/08/18 06:17 Dose: 1 mg Heparin Sodium (Porcine) (Heparin -) 5,000 unit SQ BID [facility] Last Admin: 07/08/18 11:04 Dose: 5,000 unit Isosorbide Mononitrate (Imdur -) 120 mg PO DAILY [facility] Last Admin: 07/08/18 11:00 Dose: 120 mg Minoxidil (Lonitin -) 5 mg PO DAILY [facility] Last Admin: 07/08/18 11:04 Dose: 5 mg Torsemide (Demadex -) 40 mg PO DAILY [facility] Last Admin: 07/08/18 11:02 Dose: 40 mg - Objective Vital Signs: Vital Signs Temperature 98.4 F 07/08/18 14:10 Pulse Rate 53 L 07/08/18 14:10 Respiratory Rate 20 07/08/18 14:10 Blood Pressure 136/73 07/08/18 14:10 O2 Sat by Pulse Oximetry (%) 98 05/06/19 09:00 Constitutional: Yes: Calm Eyes: Yes: Conjunctiva Clear HENT: Yes: Atraumatic Neck: Yes: Supple Cardiovascular: Yes: S1, S2 Respiratory: Yes: CTA Bilaterally Gastrointestinal: Yes: Normal Bowel Sounds, Soft, Abdomen, Obese Genitourinary: Yes: WNL Musculoskeletal: Yes: WNL Edema: Yes Edema: LLE: 2+, RLE: 2+ Integumentary: Yes: Venous Stasis Changes Neurological: Yes: Oriented Psychiatric: Yes: Oriented Labs: CBC, BMP 07/02/18 05:30 07/08/18 05:30 INR, PTT INR 1.13 (0.83-1.09) H 07/01/18 15:25 Assessment/Plan Current Medications Generic Name Dose Route Start Last Admin Trade Name Freq PRN Reason Stop Dose Admin Aspirin 81 mg 07/02/18 10:00 07/08/18 11:01 Asa - PO 81 mg DAILY [facility] Administration Bismuth Subsalicylate 30 ml 07/04/18 09:04 07/04/18 11:40 Pepto-Bismol Liquid - PO 30 ml Q12H PRN Administration DIARRHEA Carvedilol 25 mg 07/02/18 10:00 07/08/18 11:01 Coreg - PO 25 mg BID [facility] Administration Clonidine 0.3 mg 07/03/18 14:00 07/08/18 15:18 Catapres - PO 0.3 mg TID [facility] Administration Clopidogrel Bisulfate 75 mg 07/02/18 10:00 07/08/18 11:03 Plavix - PO 75 mg DAILY [facility] Administration Doxycycline Hyclate 100 mg 07/07/18 18:00 07/08/18 11:04 Vibramycin - PO 100 mg BID@1000,1800 [facility] Administration Enalapril Maleate 20 mg 07/03/18 11:30 07/08/18 11:01 Vasotec - PO 20 mg BID [facility] Administration Finasteride 5 mg 07/02/18 10:00 07/08/18 11:03 Proscar - PO 5 mg DAILY [facility] Administration Glimepiride 1 mg 07/02/18 07:00 07/08/18 06:17 Amaryl - PO 1 mg DAILY@0700 [facility] Administration Heparin Sodium (Porcine) 5,000 unit 07/01/18 22:00 07/08/18 11:04 Heparin - SQ 5,000 unit BID [facility] Administration Isosorbide Mononitrate 120 mg 07/04/18 09:51 07/08/18 11:00 Imdur - PO 120 mg DAILY [facility] Administration Minoxidil 5 mg 07/05/18 10:45 07/08/18 11:04 Lonitin - PO 5 mg DAILY [facility] Administration Torsemide 40 mg 07/03/18 12:30 07/08/18 11:02 Demadex - PO 40 mg DAILY [facility] Administration Impression 1. CKD vs MIKI 2. HTN - resistant 3. renal artery stenosis 4. DM 5. fluid overload 6. chf dialstolic 7. proteinuria Plan - renal function worsening - hold diuretics tomorrow - repeat labs in am - chlorthalidone held today - will need outpt renal follow up and workup Dr Wise
[2018-07-09] MEDS: cloNIDine HCL 0.1 MG TABLET PO SCH ×3 (05:30→21:56)
[2018-07-09] MEDS: GLIMEPIRIDE 1 MG TABLET (FP) PO SCH (06:23)
[2018-07-09 08:49] LABS: ALBUMIN 3.2 g/dl (3.4-5.0); ALK PHOS 72 U/L (45-117); ANION GAP 7 MMOL/L (8-16); BILIRUBIN,TOTAL 0.4 mg/dL (0.2-1); BLOOD UREA NITROGEN 50 mg/dL (7-18); CALCIUM 8.6 mg/dL (8.5-10.1); CHLORIDE 102 mmol/L (98-107); CO2 29 mmol/L (21-32); CREATININE 1.9 mg/dL (0.55-1.3); GLUCOSE,RANDOM 156 mg/dL (74-106); POTASSIUM 4.4 mmol/L (3.5-5.1); SGOT/AST 18 U/L (15-37); SGPT/ALT 20 U/L (13-61); SODIUM 138 mmol/L (136-145); TOT PROT 5.9 g/dl (6.4-8.2)
[2018-07-09] MEDS: FINASTERIDE 5 MG TABLET (FP) PO SCH (09:31)
[2018-07-09] MEDS: CLOPIDOGREL BISULFATE 75 MG TABLET (FP) PO SCH (09:31)
[2018-07-09] MEDS: CARVEDILOL 25 MG TABLET (FP) PO SCH (09:31)
[2018-07-09] MEDS: ISOSORBIDE MONONITRATE 60 MG TAB.SR.24H (FP) PO SCH (09:31)
[2018-07-09] MEDS: ASPIRIN 81 MG CHEWABLE TABLETS PO SCH (09:31)
[2018-07-09] MEDS ORDERED: PT OWN MED DRAWER 7, Y5N ONE ×3 (09:32→17:07)
[2018-07-09] MEDS: MINOXIDIL 2.5 MG TABLET PO SCH (09:32)
[2018-07-09] MEDS: DOXYCYCLINE HYCLATE 100 MG CAPSULE PO SCH ×2 (09:33→17:10)
--- NOTE | 2018-07-09 11:00 | PN ---
Progress Note, Physician Chief Complaint: Events noted Feels better History of Present Illness: Patient was seen and examined. Awake and alert. Chart was reviewed Denies chest pain or palpitations Less SOB and not in distress - Current Medication List Current Medications: Active Medications Aspirin (Asa -) 81 mg PO DAILY [facility] Last Admin: 07/09/18 09:31 Dose: 81 mg Bismuth Subsalicylate (Pepto-Bismol Liquid -) 30 ml PO Q12H PRN PRN Reason: DIARRHEA Last Admin: 07/04/18 11:40 Dose: 30 ml Carvedilol (Coreg -) 25 mg PO BID [facility] Last Admin: 07/09/18 09:31 Dose: 25 mg Clonidine (Catapres -) 0.3 mg PO TID [facility] Last Admin: 07/09/18 05:30 Dose: 0.3 mg Clopidogrel Bisulfate (Plavix -) 75 mg PO DAILY [facility] Last Admin: 07/09/18 09:31 Dose: 75 mg Doxycycline Hyclate (Vibramycin -) 100 mg PO BID@1000,1800 [facility] Last Admin: 07/09/18 09:33 Dose: 100 mg Finasteride (Proscar -) 5 mg PO DAILY [facility] Last Admin: 07/09/18 09:31 Dose: 5 mg Glimepiride (Amaryl -) 1 mg PO DAILY@0700 [facility] Last Admin: 07/09/18 06:23 Dose: 1 mg Isosorbide Mononitrate (Imdur -) 120 mg PO DAILY [facility] Last Admin: 07/09/18 09:31 Dose: 120 mg Minoxidil (Lonitin -) 5 mg PO DAILY [facility] Last Admin: 07/09/18 09:32 Dose: 5 mg - Objective Vital Signs: Vital Signs Temperature 97.9 F 07/09/18 06:00 Pulse Rate 52 L 07/09/18 06:00 Respiratory Rate 18 07/09/18 09:00 Blood Pressure 174/58 H 07/09/18 06:00 O2 Sat by Pulse Oximetry (%) 99 07/09/18 09:00 Eyes: Yes: PERRL HENT: Yes: Atraumatic Neck: Yes: Supple Cardiovascular: Yes: Regular Rate and Rhythm, S1, S2 Respiratory: Yes: Diminished Gastrointestinal: Yes: Normal Bowel Sounds, Soft. No: Tenderness Edema: Yes Edema: LLE: 1+, RLE: 1+ Integumentary: Yes: Venous Stasis Changes Additional Findings/Remarks: - Review of Systems Constitutional: denies: Chills, Fever Cardiovascular: denies: Chest Pain. denies: Palpitations, (+) Shortness of Breath Respiratory: denies: Cough, Hemoptysis, Orthopnea, PND, (+) SOB, SOB on Exertion Gastrointestinal: denies: Diarrhea, Nausea. denies: Abdominal Pain, Constipation, Melena, Rectal Bleeding, Vomiting Genitourinary: denies: Dysuria, Hematuria Musculoskeletal: denies: Back Pain, Joint Pain Neurological: denies: Dizziness, Headache, Seizure, Syncope Labs: 07/09/18 05:35 Problem List - Problems (1) Acute diastolic (congestive) heart failure Code(s): I50.31 - ACUTE DIASTOLIC (CONGESTIVE) HEART FAILURE (2) CKD (chronic kidney disease) Code(s): N18.9 - CHRONIC KIDNEY DISEASE, UNSPECIFIED Qualifiers: Chronic kidney disease stage: stage 2 (mild) Qualified Code(s): N18.2 - Chronic kidney disease, stage 2 (mild) (3) HLD (hyperlipidemia) Code(s): E78.5 - HYPERLIPIDEMIA, UNSPECIFIED Qualifiers: Hyperlipidemia type: pure hypercholesterolemia Qualified Code(s): E78.00 - Pure hypercholesterolemia, unspecified; E78.0 - Pure hypercholesterolemia (4) HTN (hypertension) Code(s): I10 - ESSENTIAL (PRIMARY) HYPERTENSION Qualifiers: Hypertension type: essential hypertension Qualified Code(s): I10 - Essential (primary) hypertension (5) Subendocardial ischemia Code(s): I24.8 - OTHER FORMS OF ACUTE ISCHEMIC HEART DISEASE (6) Type 2 diabetes mellitus Code(s): E11.9 - TYPE 2 DIABETES MELLITUS WITHOUT COMPLICATIONS Qualifiers: Diabetes mellitus intermediate teacher insulin use: without half-way use Assessment/Plan 1. Acute hypoxic respiratory failure 2. Acute on chronic diastolic heart failure with subendocardial ischemic injury 3. HTN 4. Type 2 DM 5. History of stroke 6. Acute on CKD 7. Allergies to calcium channel blockers and hydralazine PLAN: 1. Oral diuresis with Demadex and monitor renal function and electrolytes 2. Continue ASA 81 mg QD, Vasotec 20 mg BID (captopril unavailable), Chlorthalidone 50 mg QD, Plavix 75 mg QD, Imdur 120 mg QD, Carvedilol 25 mg BID , Clonidine 0.3 mg TDI and Minoxidil 5 mg QD with uptitration as tolerated 3. Review of records from [facility] and [facility] Further plans are to follow Rober Melgoza MD
--- NOTE | 2018-07-09 13:10 | PN ---
Progress Note, Physician History of Present Illness: stable doing well wounds were leaking now ok - Current Medication List Current Medications: Active Medications Aspirin (Asa -) 81 mg PO DAILY [facility] Last Admin: 07/09/18 09:31 Dose: 81 mg Bismuth Subsalicylate (Pepto-Bismol Liquid -) 30 ml PO Q12H PRN PRN Reason: DIARRHEA Last Admin: 07/04/18 11:40 Dose: 30 ml Carvedilol (Coreg -) 25 mg PO BID [facility] Last Admin: 07/09/18 09:31 Dose: 25 mg Clonidine (Catapres -) 0.3 mg PO TID [facility] Last Admin: 07/09/18 05:30 Dose: 0.3 mg Clopidogrel Bisulfate (Plavix -) 75 mg PO DAILY [facility] Last Admin: 07/09/18 09:31 Dose: 75 mg Doxycycline Hyclate (Vibramycin -) 100 mg PO BID@1000,1800 [facility] Last Admin: 07/09/18 09:33 Dose: 100 mg Finasteride (Proscar -) 5 mg PO DAILY [facility] Last Admin: 07/09/18 09:31 Dose: 5 mg Glimepiride (Amaryl -) 1 mg PO DAILY@0700 [facility] Last Admin: 07/09/18 06:23 Dose: 1 mg Isosorbide Mononitrate (Imdur -) 120 mg PO DAILY [facility] Last Admin: 07/09/18 09:31 Dose: 120 mg Minoxidil (Lonitin -) 5 mg PO DAILY [facility] Last Admin: 07/09/18 09:32 Dose: 5 mg - Objective Vital Signs: Vital Signs Temperature 97.9 F 07/09/18 06:00 Pulse Rate 52 L 07/09/18 06:00 Respiratory Rate 18 07/09/18 09:00 Blood Pressure 174/58 H 07/09/18 06:00 O2 Sat by Pulse Oximetry (%) 99 07/09/18 09:00 Constitutional: Yes: No Distress, Calm Cardiovascular: Yes: S1, S2 Respiratory: Yes: Regular, CTA Bilaterally Gastrointestinal: Yes: Normal Bowel Sounds, Soft Musculoskeletal: Yes: WNL Extremities: Yes: Other Wound/Incision: Yes: Dressing Dry and Intact Neurological: Yes: Alert, Oriented Psychiatric: Yes: Alert, Oriented Labs: CBC, BMP 07/02/18 05:30 07/09/18 05:35 INR, PTT INR 1.13 (0.83-1.09) H 07/01/18 15:25 Assessment/Plan Problem List - Problems (1) Dyspnea Code(s): R06.00 - DYSPNEA, UNSPECIFIED (2) Acute diastolic (congestive) heart failure Code(s): I50.31 - ACUTE DIASTOLIC (CONGESTIVE) HEART FAILURE (3) CKD (chronic kidney disease) Code(s): N18.9 - CHRONIC KIDNEY DISEASE, UNSPECIFIED Qualifiers: Chronic kidney disease stage: stage 2 (mild) Qualified Code(s): N18.2 - Chronic kidney disease, stage 2 (mild) (4) Type 2 diabetes mellitus Code(s): E11.9 - TYPE 2 DIABETES MELLITUS WITHOUT COMPLICATIONS Qualifiers: Diabetes mellitus 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
[2018-07-09 15:22] LABS: EPI CELLS 0.7 /HPF (0-5/HPF); PH,URINE 6.5 (5.0-8.0); URINE APPEARANCE CLEAR; URINE BACTERIA 3.5 /hpf (NEGATIVE); URINE BILIRUBIN NEGATIVE (NEGATIVE); URINE CASTS 2 /lpf (0-8); URINE COLOR YELLOW; URINE GLUCOSE (UA) NEGATIVE (NEGATIVE); URINE KETONE NEGATIVE (NEGATIVE); URINE LEUK ESTERASE NEGATIVE (NEGATIVE); URINE NITRITE NEGATIVE (NEGATIVE); URINE PROTEIN 3+ (NEGATIVE); URINE RBC 3 /hpf (0-4); URINE WBC 1 /hpf (0-5)
[2018-07-09] MEDS ORDERED: ONDANSETRON 4 MG/2 ML VIAL ONE (15:22)
--- NOTE | 2018-07-09 15:29 | PN ---
Progress Note, Physician History of Present Illness: Pt seen and examined at bedside. He is awake and alert. He denies chest pain or shortness of breath. - Current Medication List Current Medications: Active Medications Aspirin (Asa -) 81 mg PO DAILY [facility] Last Admin: 07/09/18 09:31 Dose: 81 mg Bismuth Subsalicylate (Pepto-Bismol Liquid -) 30 ml PO Q12H PRN PRN Reason: DIARRHEA Last Admin: 07/04/18 11:40 Dose: 30 ml Carvedilol (Coreg -) 25 mg PO BID [facility] Last Admin: 07/09/18 09:31 Dose: 25 mg Clonidine (Catapres -) 0.3 mg PO TID [facility] Last Admin: 07/09/18 13:24 Dose: 0.3 mg Clopidogrel Bisulfate (Plavix -) 75 mg PO DAILY [facility] Last Admin: 07/09/18 09:31 Dose: 75 mg Doxycycline Hyclate (Vibramycin -) 100 mg PO BID@1000,1800 [facility] Last Admin: 07/09/18 09:33 Dose: 100 mg Finasteride (Proscar -) 5 mg PO DAILY [facility] Last Admin: 07/09/18 09:31 Dose: 5 mg Glimepiride (Amaryl -) 1 mg PO DAILY@0700 [facility] Last Admin: 07/09/18 06:23 Dose: 1 mg Isosorbide Mononitrate (Imdur -) 120 mg PO DAILY [facility] Last Admin: 07/09/18 09:31 Dose: 120 mg Minoxidil (Lonitin -) 5 mg PO DAILY [facility] Last Admin: 07/09/18 09:32 Dose: 5 mg Ondansetron HCl (Zofran Injection) 4 mg IVPUSH ONCE ONE Stop: 07/09/18 15:31 - Objective Vital Signs: Vital Signs Temperature 98.2 F 07/09/18 14:20 Pulse Rate 49 L 07/09/18 14:30 Respiratory Rate 20 07/09/18 14:30 Blood Pressure 123/48 L 07/09/18 14:30 O2 Sat by Pulse Oximetry (%) 99 07/09/18 09:00 Constitutional: Yes: Calm Eyes: Yes: Conjunctiva Clear HENT: Yes: Atraumatic Neck: Yes: Supple Cardiovascular: Yes: S1, S2 Respiratory: Yes: CTA Bilaterally Gastrointestinal: Yes: Soft Genitourinary: Yes: WNL Musculoskeletal: Yes: WNL Edema: Yes Edema: LLE: 2+, RLE: 2+ Neurological: Yes: Oriented Psychiatric: Yes: Oriented Labs: CBC, BMP 07/02/18 05:30 07/09/18 05:35 INR, PTT INR 1.13 (0.83-1.09) H 07/01/18 15:25 Assessment/Plan Current Medications Generic Name Dose Route Start Last Admin Trade Name Freq PRN Reason Stop Dose Admin Aspirin 81 mg 07/02/18 10:00 07/09/18 09:31 Asa - PO 81 mg DAILY [facility] Administration Bismuth Subsalicylate 30 ml 07/04/18 09:04 07/04/18 11:40 Pepto-Bismol Liquid - PO 30 ml Q12H PRN Administration DIARRHEA Carvedilol 25 mg 07/02/18 10:00 07/09/18 09:31 Coreg - PO 25 mg BID [facility] Administration Clonidine 0.3 mg 07/03/18 14:00 07/09/18 13:24 Catapres - PO 0.3 mg TID [facility] Administration Clopidogrel Bisulfate 75 mg 07/02/18 10:00 07/09/18 09:31 Plavix - PO 75 mg DAILY [facility] Administration Doxycycline Hyclate 100 mg 07/07/18 18:00 07/09/18 09:33 Vibramycin - PO 100 mg BID@1000,1800 [facility] Administration Finasteride 5 mg 07/02/18 10:00 07/09/18 09:31 Proscar - PO 5 mg DAILY [facility] Administration Glimepiride 1 mg 07/02/18 07:00 07/09/18 06:23 Amaryl - PO 1 mg DAILY@0700 [facility] Administration Isosorbide Mononitrate 120 mg 07/04/18 09:51 07/09/18 09:31 Imdur - PO 120 mg DAILY [facility] Administration Minoxidil 5 mg 07/05/18 10:45 07/09/18 09:32 Lonitin - PO 5 mg DAILY [facility] Administration Ondansetron HCl 4 mg 07/09/18 15:30 Zofran Injection IVPUSH 07/09/18 15:31 ONCE ONE Impression 1. CKD vs MIKI 2. HTN - resistant 3. renal artery stenosis 4. DM 5. fluid overload 6. chf dialstolic 7. proteinuria Plan - cont to monitor renal function - karlos and diuretics on hold - repeat labs in am - will need outpt renal follow up and workup Dr Wise
[2018-07-09 15:30] LABS: RATIO URIN PROTEIN/URIN CREAT 2.6 MG/DL
[2018-07-09] MEDS ORDERED: ONDANSETRON 4 MG/2 ML VIAL IVPUSH ONE (15:30)
--- NOTE | 2018-07-09 16:51 | PN ---
Progress Note, Physician - Current Medication List Current Medications: Active Medications Aspirin (Asa -) 81 mg PO DAILY [facility] Last Admin: 07/09/18 09:31 Dose: 81 mg Bismuth Subsalicylate (Pepto-Bismol Liquid -) 30 ml PO Q12H PRN PRN Reason: DIARRHEA Last Admin: 07/04/18 11:40 Dose: 30 ml Carvedilol (Coreg -) 25 mg PO BID [facility] Last Admin: 07/09/18 09:31 Dose: 25 mg Clonidine (Catapres -) 0.3 mg PO TID [facility] Last Admin: 07/09/18 13:24 Dose: 0.3 mg Clopidogrel Bisulfate (Plavix -) 75 mg PO DAILY [facility] Last Admin: 07/09/18 09:31 Dose: 75 mg Doxycycline Hyclate (Vibramycin -) 100 mg PO BID@1000,1800 [facility] Last Admin: 07/09/18 09:33 Dose: 100 mg Finasteride (Proscar -) 5 mg PO DAILY [facility] Last Admin: 07/09/18 09:31 Dose: 5 mg Glimepiride (Amaryl -) 1 mg PO DAILY@0700 [facility] Last Admin: 07/09/18 06:23 Dose: 1 mg Isosorbide Mononitrate (Imdur -) 120 mg PO DAILY [facility] Last Admin: 07/09/18 09:31 Dose: 120 mg Minoxidil (Lonitin -) 5 mg PO DAILY [facility] Last Admin: 07/09/18 09:32 Dose: 5 mg - Objective Vital Signs: Vital Signs Temperature 98.2 F 07/09/18 14:20 Pulse Rate 49 L 07/09/18 14:30 Respiratory Rate 20 07/09/18 14:30 Blood Pressure 123/48 L 07/09/18 14:30 O2 Sat by Pulse Oximetry (%) 99 07/09/18 09:00 Constitutional: Yes: No Distress HENT: Yes: Atraumatic Neck: Yes: Supple Cardiovascular: Yes: Regular Rate and Rhythm Respiratory: Yes: CTA Bilaterally Gastrointestinal: Yes: Normal Bowel Sounds Extremities: Yes: WNL Edema: Yes Edema: LLE: 3+, RLE: 3+ Neurological: Yes: Other (llex infection) Labs: CBC, BMP 07/02/18 05:30 07/09/18 05:35 INR, PTT INR 1.13 (0.83-1.09) H 07/01/18 15:25 Problem List - Problems (1) Dyspnea Code(s): R06.00 - DYSPNEA, UNSPECIFIED (2) Acute diastolic (congestive) heart failure Assessment/Plan: monitor bp karlos and diuretic on hold Code(s): I50.31 - ACUTE DIASTOLIC (CONGESTIVE) HEART FAILURE (3) CKD (chronic kidney disease) Assessment/Plan: monitor renal consult reviewed Code(s): N18.9 - CHRONIC KIDNEY DISEASE, UNSPECIFIED Qualifiers: Chronic kidney disease stage: stage 2 (mild) Qualified Code(s): N18.2 - Chronic kidney disease, stage 2 (mild) (4) Type 2 diabetes mellitus Assessment/Plan: on meds monitor bgms Code(s): E11.9 - TYPE 2 DIABETES MELLITUS WITHOUT COMPLICATIONS Qualifiers: Diabetes mellitus correction insulin use: without correction use (5) Hypertensive emergency Assessment/Plan: on meds bp low today feeling dizzy monitor bp karlos and diuretic on hold Code(s): I16.1 - HYPERTENSIVE EMERGENCY (6) Subendocardial ischemia Code(s): I24.8 - OTHER FORMS OF ACUTE ISCHEMIC HEART DISEASE
[2018-07-10] MEDS: cloNIDine HCL 0.1 MG TABLET PO SCH ×3 (06:10→22:15)
[2018-07-10] MEDS: GLIMEPIRIDE 1 MG TABLET (FP) PO SCH (06:15)
[2018-07-10 06:37] LABS: HEMATOCRIT 27.5 % (35.4-49); HEMOGLOBIN 9.4 GM/dL (11.7-16.9); LYMPH % 19.4 % (8-40); MCH 29.9 pg (25.7-33.7); MCHC 34.3 g/dl (32.0-35.9); MEAN CELL VOLUME 87.2 fl (80-96); MEAN PLT VOLUME 9.2 fl (7.5-11.1); MONO % 9.2 % (3.8-10.2); NEUT % 66.4 % (42.8-82.8); PLATELET COUNT 241 K/MM3 (134-434); RBC 3.16 M/mm3 (4.00-5.60); RDW 14.6 % (11.9-15.9); WHITE BLOOD COUNT 4.4 K/mm3 (4.0-10.0)
[2018-07-10 07:14] LABS: ALBUMIN 2.9 g/dl (3.4-5.0); ALK PHOS 67 U/L (45-117); ANION GAP 6 MMOL/L (8-16); BILIRUBIN,TOTAL 0.4 mg/dL (0.2-1); BLOOD UREA NITROGEN 48 mg/dL (7-18); CALCIUM 8.3 mg/dL (8.5-10.1); CHLORIDE 103 mmol/L (98-107); CO2 27 mmol/L (21-32); CREATININE 1.9 mg/dL (0.55-1.3); GLUCOSE,RANDOM 158 mg/dL (74-106); POTASSIUM 4.1 mmol/L (3.5-5.1); SGOT/AST 19 U/L (15-37); SGPT/ALT 21 U/L (13-61); SODIUM 137 mmol/L (136-145); TOT PROT 5.7 g/dl (6.4-8.2)
--- NOTE | 2018-07-10 10:29 | PN ---
Progress Note, Physician History of Present Illness: Dyspnea, orthopnea, LE edema improving with diuresis, BP control improving with current regimen. Vasovagal episode yesterday with dizziness, diaphoresis, nausea without true syncope, - Current Medication List Current Medications: Active Medications Aspirin (Asa -) 81 mg PO DAILY [facility] Last Admin: 07/09/18 09:31 Dose: 81 mg Bismuth Subsalicylate (Pepto-Bismol Liquid -) 30 ml PO Q12H PRN PRN Reason: DIARRHEA Last Admin: 07/04/18 11:40 Dose: 30 ml Carvedilol (Coreg -) 25 mg PO BID [facility] Last Admin: 07/09/18 09:31 Dose: 25 mg Clonidine (Catapres -) 0.3 mg PO TID [facility] Last Admin: 07/10/18 06:10 Dose: 0.3 mg Clopidogrel Bisulfate (Plavix -) 75 mg PO DAILY [facility] Last Admin: 07/09/18 09:31 Dose: 75 mg Doxycycline Hyclate (Vibramycin -) 100 mg PO BID@1000,1800 [facility] Last Admin: 07/09/18 17:10 Dose: 100 mg Finasteride (Proscar -) 5 mg PO DAILY [facility] Last Admin: 07/09/18 09:31 Dose: 5 mg Glimepiride (Amaryl -) 1 mg PO DAILY@0700 [facility] Last Admin: 07/10/18 06:15 Dose: 1 mg Isosorbide Mononitrate (Imdur -) 120 mg PO DAILY [facility] Last Admin: 07/09/18 09:31 Dose: 120 mg Minoxidil (Lonitin -) 5 mg PO DAILY [facility] Last Admin: 07/09/18 09:32 Dose: 5 mg - Objective Vital Signs: Vital Signs Temperature 98 F 07/10/18 09:00 Pulse Rate 48 L 07/10/18 09:00 Respiratory Rate 18 07/10/18 09:00 Blood Pressure 152/52 L 07/10/18 09:00 O2 Sat by Pulse Oximetry (%) 96 07/09/18 21:00 Constitutional: Yes: No Distress, Calm Neck: Yes: Supple Cardiovascular: Yes: Bradycardia Respiratory: Yes: Regular, Diminished, On Nasal O2 Gastrointestinal: Yes: Normal Bowel Sounds, Soft, Abdomen, Obese Edema: Yes Integumentary: Yes: Venous Stasis Changes Labs: CBC, BMP 07/10/18 05:30 07/10/18 05:30 INR, PTT INR 1.13 (0.83-1.09) H 07/01/18 15:25 - ....Imaging EKG: Report Reviewed (Tele: SR) Problem List - Problems (1) Acute diastolic (congestive) heart failure Code(s): I50.31 - ACUTE DIASTOLIC (CONGESTIVE) HEART FAILURE (2) Hypertensive emergency Code(s): I16.1 - HYPERTENSIVE EMERGENCY (3) Subendocardial ischemia Code(s): I24.8 - OTHER FORMS OF ACUTE ISCHEMIC HEART DISEASE (4) Type 2 diabetes mellitus Code(s): E11.9 - TYPE 2 DIABETES MELLITUS WITHOUT COMPLICATIONS Qualifiers: Diabetes mellitus mcfp insulin use: without bed bug exterminator use (5) CKD (chronic kidney disease) Code(s): N18.9 - CHRONIC KIDNEY DISEASE, UNSPECIFIED Qualifiers: Chronic kidney disease stage: stage 2 (mild) Qualified Code(s): N18.2 - Chronic kidney disease, stage 2 (mild) Assessment/Plan 07/02/2018 Echo: Borderline cLVH, normal LV and RV size and fxn, LVEF 60-65%, mild LAE, tr MR, TR, mild pericardial effusions Echo: Mild cLVH, normal LVEF 55%, PFO with L->R shunt 07/02/2018 Renal US: No hydro 05/23/2018 No evidence of renal artery stenosis 1. Acute hypoxic respiratory failure referable to 2. Acute on chronic diastolic heart failure with subendocardial ischemic injury 3. Resistant hypertension 4. Type 2 DM 5. H/o stroke 6. Acute on CKD, no renal artery stenosis on imaging 7. Allergies to calcium channel blockers and hydralazine 8. RSD with RUE crush injury 9. Vasovagal episode P:1. Holding Demadex 40 qd and THEO-I pending renal recovery 2. Continue ASA 81 qd, Plavix 75 qd, Imdur 120 qd, decrease carvedilol 6.25 bid , clonidine 0.3 tid and minoxidil 5 qd with uptitration as hemodynamics tolerate 3. Review of records from [facility] and [place] [facility] confirm resistant HTN 4. Studies on renal sympathetic denervation for resistant HTN did not show efficacy 5. Addressed on abortive maneuvers once prodromal sxs have been experienced
[2018-07-10] MEDS ORDERED: PT OWN MED DRAWER 7, Y5N ONE (10:33)
[2018-07-10] MEDS: CLOPIDOGREL BISULFATE 75 MG TABLET (FP) PO SCH (10:45)
[2018-07-10] MEDS: MINOXIDIL 2.5 MG TABLET PO SCH (10:45)
[2018-07-10] MEDS: CARVEDILOL 6.25 MG TABLET (FP) PO SCH ×2 (10:45→22:15)
[2018-07-10] MEDS: DOXYCYCLINE HYCLATE 100 MG CAPSULE PO SCH (10:45)
[2018-07-10] MEDS: FINASTERIDE 5 MG TABLET (FP) PO SCH (10:45)
[2018-07-10] MEDS: ASPIRIN 81 MG CHEWABLE TABLETS PO SCH (10:45)
[2018-07-10] MEDS: ISOSORBIDE MONONITRATE 60 MG TAB.SR.24H (FP) PO SCH (10:45)
--- NOTE | 2018-07-10 12:36 | PN ---
Progress Note, Physician History of Present Illness: Pt seen and examined at bedside. He had a hypotensive and bradycardic episode last night. Discussed with cardio. - Current Medication List Current Medications: Active Medications Aspirin (Asa -) 81 mg PO DAILY [facility] Last Admin: 07/10/18 10:45 Dose: 81 mg Bismuth Subsalicylate (Pepto-Bismol Liquid -) 30 ml PO Q12H PRN PRN Reason: DIARRHEA Last Admin: 07/04/18 11:40 Dose: 30 ml Carvedilol (Coreg -) 6.25 mg PO BID [facility] Last Admin: 07/10/18 10:45 Dose: 6.25 mg Clonidine (Catapres -) 0.2 mg PO TID [facility] Clopidogrel Bisulfate (Plavix -) 75 mg PO DAILY [facility] Last Admin: 07/10/18 10:45 Dose: 75 mg Doxycycline Hyclate (Vibramycin -) 100 mg PO BID@1000,1800 [facility] Last Admin: 07/10/18 10:45 Dose: 100 mg Finasteride (Proscar -) 5 mg PO DAILY [facility] Last Admin: 07/10/18 10:45 Dose: 5 mg Glimepiride (Amaryl -) 1 mg PO DAILY@0700 [facility] Last Admin: 07/10/18 06:15 Dose: 1 mg Isosorbide Mononitrate (Imdur -) 120 mg PO DAILY [facility] Last Admin: 07/10/18 10:45 Dose: 120 mg Minoxidil (Lonitin -) 5 mg PO DAILY [facility] Last Admin: 07/10/18 10:45 Dose: 5 mg - Objective Vital Signs: Vital Signs Temperature 98 F 07/10/18 09:00 Pulse Rate 48 L 07/10/18 09:00 Respiratory Rate 18 07/10/18 09:00 Blood Pressure 152/52 L 07/10/18 09:00 O2 Sat by Pulse Oximetry (%) 96 07/09/18 21:00 Constitutional: Yes: Calm Eyes: Yes: Conjunctiva Clear HENT: Yes: Atraumatic Neck: Yes: Supple Cardiovascular: Yes: S1, S2 Respiratory: Yes: CTA Bilaterally Gastrointestinal: Yes: WNL Genitourinary: Yes: WNL Musculoskeletal: Yes: WNL Edema: Yes Edema: LLE: 1+, RLE: 1+ Integumentary: Yes: Venous Stasis Changes Neurological: Yes: Oriented Psychiatric: Yes: Oriented Labs: CBC, BMP 07/10/18 05:30 07/10/18 05:30 INR, PTT INR 1.13 (0.83-1.09) H 07/01/18 15:25 Problem List - Problems (1) CKD (chronic kidney disease) Code(s): N18.9 - CHRONIC KIDNEY DISEASE, UNSPECIFIED Qualifiers: Chronic kidney disease stage: stage 2 (mild) Qualified Code(s): N18.2 - Chronic kidney disease, stage 2 (mild) (2) HTN (hypertension) Code(s): I10 - ESSENTIAL (PRIMARY) HYPERTENSION Qualifiers: Hypertension type: essential hypertension Qualified Code(s): I10 - Essential (primary) hypertension (3) Hypertensive emergency Code(s): I16.1 - HYPERTENSIVE EMERGENCY (4) Type 2 diabetes mellitus Code(s): E11.9 - TYPE 2 DIABETES MELLITUS WITHOUT COMPLICATIONS Qualifiers: Diabetes mellitus terminal carman insulin use: without skilled nursing use Assessment/Plan Current Medications Generic Name Dose Route Start Last Admin Trade Name Freq PRN Reason Stop Dose Admin Aspirin 81 mg 07/02/18 10:00 07/10/18 10:45 Asa - PO 81 mg DAILY [facility] Administration Bismuth Subsalicylate 30 ml 07/04/18 09:04 07/04/18 11:40 Pepto-Bismol Liquid - PO 30 ml Q12H PRN Administration DIARRHEA Carvedilol 6.25 mg 07/10/18 10:45 07/10/18 10:45 Coreg - PO 6.25 mg BID [facility] Administration Clonidine 0.2 mg 07/10/18 10:56 Catapres - PO TID [facility] Clopidogrel Bisulfate 75 mg 07/02/18 10:00 07/10/18 10:45 Plavix - PO 75 mg DAILY [facility] Administration Doxycycline Hyclate 100 mg 07/07/18 18:00 07/10/18 10:45 Vibramycin - PO 100 mg BID@1000,1800 [facility] Administration Finasteride 5 mg 07/02/18 10:00 07/10/18 10:45 Proscar - PO 5 mg DAILY [facility] Administration Glimepiride 1 mg 07/02/18 07:00 07/10/18 06:15 Amaryl - PO 1 mg DAILY@0700 [facility] Administration Isosorbide Mononitrate 120 mg 07/04/18 09:51 07/10/18 10:45 Imdur - PO 120 mg DAILY [facility] Administration Minoxidil 5 mg 07/05/18 10:45 07/10/18 10:45 Lonitin - PO 5 mg DAILY [facility] Administration Impression 1. CKD vs MIKI 2. HTN - resistant 3. renal artery stenosis 4. DM 5. fluid overload 6. chf dialstolic 7. proteinuria Plan - repeat bmp in am - karlos on hold - diuretics on hold - titrate down clonidine dose and monitor bp and rate - cont coreg - BP has been difficult to control - will need outpt renal follow up and workup Dr Wise
--- NOTE | 2018-07-10 12:58 | PN ---
Progress Note, Physician History of Present Illness: stable no new issues legs a bit oozy - Current Medication List Current Medications: Active Medications Aspirin (Asa -) 81 mg PO DAILY [facility] Last Admin: 07/10/18 10:45 Dose: 81 mg Bismuth Subsalicylate (Pepto-Bismol Liquid -) 30 ml PO Q12H PRN PRN Reason: DIARRHEA Last Admin: 07/04/18 11:40 Dose: 30 ml Carvedilol (Coreg -) 6.25 mg PO BID [facility] Last Admin: 07/10/18 10:45 Dose: 6.25 mg Clonidine (Catapres -) 0.2 mg PO TID [facility] Clopidogrel Bisulfate (Plavix -) 75 mg PO DAILY [facility] Last Admin: 07/10/18 10:45 Dose: 75 mg Doxycycline Hyclate (Vibramycin -) 100 mg PO BID@1000,1800 [facility] Last Admin: 07/10/18 10:45 Dose: 100 mg Finasteride (Proscar -) 5 mg PO DAILY [facility] Last Admin: 07/10/18 10:45 Dose: 5 mg Glimepiride (Amaryl -) 1 mg PO DAILY@0700 [facility] Last Admin: 07/10/18 06:15 Dose: 1 mg Isosorbide Mononitrate (Imdur -) 120 mg PO DAILY [facility] Last Admin: 07/10/18 10:45 Dose: 120 mg Minoxidil (Lonitin -) 5 mg PO DAILY [facility] Last Admin: 07/10/18 10:45 Dose: 5 mg - Objective Vital Signs: Vital Signs Temperature 98 F 07/10/18 09:00 Pulse Rate 48 L 07/10/18 09:00 Respiratory Rate 18 07/10/18 09:00 Blood Pressure 152/52 L 07/10/18 09:00 O2 Sat by Pulse Oximetry (%) 96 07/09/18 21:00 Constitutional: Yes: No Distress, Calm Cardiovascular: Yes: S1, S2 Respiratory: Yes: Regular, CTA Bilaterally Gastrointestinal: Yes: Normal Bowel Sounds, Soft Musculoskeletal: Yes: WNL Extremities: Yes: Other Wound/Incision: Yes: Dressing Dry and Intact Neurological: Yes: Alert, Oriented Psychiatric: Yes: Alert, Oriented Labs: CBC, BMP 07/10/18 05:30 07/10/18 05:30 INR, PTT INR 1.13 (0.83-1.09) H 07/01/18 15:25 Assessment/Plan Problem List - Problems (1) Dyspnea Code(s): R06.00 - DYSPNEA, UNSPECIFIED (2) Acute diastolic (congestive) heart failure Code(s): I50.31 - ACUTE DIASTOLIC (CONGESTIVE) HEART FAILURE (3) CKD (chronic kidney disease) Code(s): N18.9 - CHRONIC KIDNEY DISEASE, UNSPECIFIED Qualifiers: Chronic kidney disease stage: stage 2 (mild) Qualified Code(s): N18.2 - Chronic kidney disease, stage 2 (mild) (4) Type 2 diabetes mellitus Code(s): E11.9 - TYPE 2 DIABETES MELLITUS WITHOUT COMPLICATIONS Qualifiers: Diabetes mellitus laborer marine terminal insulin use: without laborer marine terminal use (5) Hypertensive emergency Code(s): I16.1 - HYPERTENSIVE EMERGENCY (6) Subendocardial ischemia Code(s): I24.8 - OTHER FORMS OF ACUTE ISCHEMIC HEART DISEASE 7 wound infection plan all cx reports noted will stop doxy will switch to augmentin wound care rest as per the team
[2018-07-10] MEDS: AMOX TR/POT CLAV 500MG/125MG TABLETS (FP) PO SCH (17:37)
--- NOTE | 2018-07-10 17:51 | PN ---
Progress Note, Physician History of Present Illness: feeling good - Current Medication List Current Medications: Active Medications Amoxicillin/Clavulanate Potassium (Augmentin - 500mg Tablet) 1 tab PO BID@0800, 1730 [facility] Last Admin: 07/10/18 17:37 Dose: 1 tab Aspirin (Asa -) 81 mg PO DAILY [facility] Last Admin: 07/10/18 10:45 Dose: 81 mg Bismuth Subsalicylate (Pepto-Bismol Liquid -) 30 ml PO Q12H PRN PRN Reason: DIARRHEA Last Admin: 07/04/18 11:40 Dose: 30 ml Carvedilol (Coreg -) 6.25 mg PO BID [facility] Last Admin: 07/10/18 10:45 Dose: 6.25 mg Clonidine (Catapres -) 0.2 mg PO TID [facility] Last Admin: 07/10/18 15:04 Dose: 0.2 mg Clopidogrel Bisulfate (Plavix -) 75 mg PO DAILY [facility] Last Admin: 07/10/18 10:45 Dose: 75 mg Finasteride (Proscar -) 5 mg PO DAILY [facility] Last Admin: 07/10/18 10:45 Dose: 5 mg Glimepiride (Amaryl -) 1 mg PO DAILY@0700 [facility] Last Admin: 07/10/18 06:15 Dose: 1 mg Isosorbide Mononitrate (Imdur -) 120 mg PO DAILY [facility] Last Admin: 07/10/18 10:45 Dose: 120 mg Minoxidil (Lonitin -) 5 mg PO DAILY [facility] Last Admin: 07/10/18 10:45 Dose: 5 mg - Objective Vital Signs: Vital Signs Temperature 97.8 F 07/10/18 14:00 Pulse Rate 50 L 07/10/18 14:00 Respiratory Rate 20 07/10/18 14:00 Blood Pressure 144/52 L 07/10/18 14:00 O2 Sat by Pulse Oximetry (%) 96 07/10/18 09:00 Constitutional: Yes: No Distress HENT: Yes: Atraumatic Neck: Yes: Supple Cardiovascular: Yes: Regular Rate and Rhythm Respiratory: Yes: CTA Bilaterally Gastrointestinal: Yes: Normal Bowel Sounds Extremities: Yes: Other (llex wound) Edema: Yes Edema: LLE: 3+, RLE: 3+ Neurological: Yes: Alert, Oriented Labs: CBC, BMP 07/10/18 05:30 07/10/18 05:30 INR, PTT INR 1.13 (0.83-1.09) H 07/01/18 15:25 Problem List - Problems (1) Dyspnea Assessment/Plan: stable Code(s): R06.00 - DYSPNEA, UNSPECIFIED (2) Acute diastolic (congestive) heart failure Assessment/Plan: monitor bp karlos and diuretic on hold Code(s): I50.31 - ACUTE DIASTOLIC (CONGESTIVE) HEART FAILURE (3) CKD (chronic kidney disease) Assessment/Plan: monitor cr still high Code(s): N18.9 - CHRONIC KIDNEY DISEASE, UNSPECIFIED Qualifiers: Chronic kidney disease stage: stage 2 (mild) Qualified Code(s): N18.2 - Chronic kidney disease, stage 2 (mild) (4) Type 2 diabetes mellitus Assessment/Plan: on meds monitor bgms Code(s): E11.9 - TYPE 2 DIABETES MELLITUS WITHOUT COMPLICATIONS Qualifiers: Diabetes mellitus senior care insulin use: without compounder helper use (5) Hypertensive emergency Assessment/Plan: on meds bp still high Code(s): I16.1 - HYPERTENSIVE EMERGENCY (6) Subendocardial ischemia Code(s): I24.8 - OTHER FORMS OF ACUTE ISCHEMIC HEART DISEASE
[2018-07-11] MEDS: cloNIDine HCL 0.1 MG TABLET PO SCH ×3 (05:33→21:23)
--- NOTE | 2018-07-11 09:15 | PN ---
Progress Note, Physician History of Present Illness: Dyspnea, orthopnea, LE edema improving with diuresis, no further vasovagal episodes, attempting to wean clonidine which may account for labile blood pressures and bradyarrhythmia. - Current Medication List Current Medications: Active Medications Amoxicillin/Clavulanate Potassium (Augmentin - 500mg Tablet) 1 tab PO BID@0800, 1730 [facility] Last Admin: 07/10/18 17:37 Dose: 1 tab Aspirin (Asa -) 81 mg PO DAILY [facility] Last Admin: 07/10/18 10:45 Dose: 81 mg Bismuth Subsalicylate (Pepto-Bismol Liquid -) 30 ml PO Q12H PRN PRN Reason: DIARRHEA Last Admin: 07/04/18 11:40 Dose: 30 ml Carvedilol (Coreg -) 6.25 mg PO BID [facility] Last Admin: 07/10/18 22:15 Dose: 6.25 mg Clonidine (Catapres -) 0.2 mg PO TID [facility] Last Admin: 07/11/18 05:33 Dose: 0.2 mg Clopidogrel Bisulfate (Plavix -) 75 mg PO DAILY [facility] Last Admin: 07/10/18 10:45 Dose: 75 mg Finasteride (Proscar -) 5 mg PO DAILY [facility] Last Admin: 07/10/18 10:45 Dose: 5 mg Glimepiride (Amaryl -) 1 mg PO DAILY@0700 [facility] Last Admin: 07/10/18 06:15 Dose: 1 mg Isosorbide Mononitrate (Imdur -) 120 mg PO DAILY [facility] Last Admin: 07/10/18 10:45 Dose: 120 mg Minoxidil (Lonitin -) 5 mg PO DAILY [facility] Last Admin: 07/10/18 10:45 Dose: 5 mg - Objective Vital Signs: Vital Signs Temperature 98.5 F 07/11/18 06:00 Pulse Rate 57 L 07/11/18 06:00 Respiratory Rate 20 07/11/18 06:00 Blood Pressure 182/72 H 07/11/18 06:00 O2 Sat by Pulse Oximetry (%) 97 07/10/18 21:00 Constitutional: Yes: No Distress, Calm Neck: Yes: Supple Cardiovascular: Yes: Regular Rate and Rhythm Respiratory: Yes: Regular, CTA Bilaterally Gastrointestinal: Yes: Normal Bowel Sounds, Soft Edema: Yes Edema: LLE: 2+, RLE: 2+ Wound/Incision: Yes: Dressing Dry and Intact Labs: CBC, BMP 07/10/18 05:30 07/10/18 05:30 INR, PTT INR 1.13 (0.83-1.09) H 07/01/18 15:25 - ....Imaging EKG: Report Reviewed (Tele: SR) Problem List - Problems (1) Acute diastolic (congestive) heart failure Code(s): I50.31 - ACUTE DIASTOLIC (CONGESTIVE) HEART FAILURE (2) Hypertensive emergency Code(s): I16.1 - HYPERTENSIVE EMERGENCY (3) Subendocardial ischemia Code(s): I24.8 - OTHER FORMS OF ACUTE ISCHEMIC HEART DISEASE (4) Type 2 diabetes mellitus Code(s): E11.9 - TYPE 2 DIABETES MELLITUS WITHOUT COMPLICATIONS Qualifiers: Diabetes mellitus residential insulin use: without intermediate manager use (5) CKD (chronic kidney disease) Code(s): N18.9 - CHRONIC KIDNEY DISEASE, UNSPECIFIED Qualifiers: Chronic kidney disease stage: stage 2 (mild) Qualified Code(s): N18.2 - Chronic kidney disease, stage 2 (mild) Assessment/Plan 07/02/2018 Echo: Borderline cLVH, normal LV and RV size and fxn, LVEF 60-65%, mild LAE, tr MR, TR, mild pericardial effusions Echo: Mild cLVH, normal LVEF 55%, PFO with L->R shunt 07/02/2018 Renal US: No hydro 05/23/2018 No evidence of renal artery stenosis 1. Acute hypoxic respiratory failure referable to 2. Acute on chronic diastolic heart failure with subendocardial ischemic injury 3. Resistant hypertension 4. Type 2 DM 5. H/o stroke 6. Acute on CKD with proteinuria, no renal artery stenosis on imaging 7. Allergies to calcium channel blockers and hydralazine 8. RSD with RUE crush injury 9. Vasovagal episode P:1. Holding Demadex 40 qd and THEO-I pending renal recovery 2. Continue ASA 81 qd, Plavix 75 qd, Imdur 120 qd, increase carvedilol 12.5 bid , decrease clonidine 0.1 tid and minoxidil 5 qd with uptitration as hemodynamics tolerate 3. Review of records from [facility] and [facility] confirm resistant HTN 4. Studies on renal sympathetic denervation for resistant HTN did not show efficacy 5. Addressed on abortive maneuvers once prodromal sxs have been experienced
[2018-07-11] MEDS ORDERED: PT OWN MED DRAWER 7, Y5N ONE (09:49)
[2018-07-11] MEDS: FINASTERIDE 5 MG TABLET (FP) PO SCH (09:59)
[2018-07-11] MEDS: ASPIRIN 81 MG CHEWABLE TABLETS PO SCH (09:59)
[2018-07-11] MEDS: ISOSORBIDE MONONITRATE 60 MG TAB.SR.24H (FP) PO SCH (09:59)
[2018-07-11] MEDS: CLOPIDOGREL BISULFATE 75 MG TABLET (FP) PO SCH (09:59)
[2018-07-11] MEDS: CARVEDILOL 6.25 MG TABLET (FP) PO SCH ×2 (10:00→21:24)
[2018-07-11] MEDS: MINOXIDIL 2.5 MG TABLET PO SCH (10:00)
[2018-07-11] MEDS: AMOX TR/POT CLAV 500MG/125MG TABLETS (FP) PO SCH ×2 (10:00→17:44)
--- NOTE | 2018-07-11 10:30 | PN ---
Progress Note, Physician History of Present Illness: says leg looking better no complaints - Current Medication List Current Medications: Active Medications Amoxicillin/Clavulanate Potassium (Augmentin - 500mg Tablet) 1 tab PO BID@0800, 1730 [facility] Last Admin: 07/11/18 10:00 Dose: 1 tab Aspirin (Asa -) 81 mg PO DAILY [facility] Last Admin: 07/11/18 09:59 Dose: 81 mg Bismuth Subsalicylate (Pepto-Bismol Liquid -) 30 ml PO Q12H PRN PRN Reason: DIARRHEA Last Admin: 07/04/18 11:40 Dose: 30 ml Carvedilol (Coreg -) 6.25 mg PO BID [facility] Last Admin: 07/11/18 10:00 Dose: 6.25 mg Clonidine (Catapres -) 0.2 mg PO TID [facility] Last Admin: 07/11/18 05:33 Dose: 0.2 mg Clopidogrel Bisulfate (Plavix -) 75 mg PO DAILY [facility] Last Admin: 07/11/18 09:59 Dose: 75 mg Finasteride (Proscar -) 5 mg PO DAILY [facility] Last Admin: 07/11/18 09:59 Dose: 5 mg Glimepiride (Amaryl -) 1 mg PO DAILY@0700 [facility] Last Admin: 07/10/18 06:15 Dose: 1 mg Isosorbide Mononitrate (Imdur -) 120 mg PO DAILY [facility] Last Admin: 07/11/18 09:59 Dose: 120 mg Minoxidil (Lonitin -) 5 mg PO DAILY [facility] Last Admin: 07/11/18 10:00 Dose: 5 mg - Objective Vital Signs: Vital Signs Temperature 98.5 F 07/11/18 06:00 Pulse Rate 57 L 07/11/18 06:00 Respiratory Rate 20 07/11/18 06:00 Blood Pressure 182/72 H 07/11/18 06:00 O2 Sat by Pulse Oximetry (%) 97 07/10/18 21:00 Constitutional: Yes: No Distress, Calm, Obese Cardiovascular: Yes: S1, S2 Respiratory: Yes: Regular, CTA Bilaterally Gastrointestinal: Yes: Normal Bowel Sounds, Soft Musculoskeletal: Yes: WNL Extremities: Yes: Other Wound/Incision: Yes: Dressing Dry and Intact Neurological: Yes: Alert, Oriented Psychiatric: Yes: Alert, Oriented Labs: CBC, BMP 07/10/18 05:30 05/08/19 05:30 INR, PTT INR 1.13 (0.83-1.09) H 07/01/18 15:25 Assessment/Plan Problem List - Problems (1) Dyspnea Code(s): R06.00 - DYSPNEA, UNSPECIFIED (2) Acute diastolic (congestive) heart failure Code(s): I50.31 - ACUTE DIASTOLIC (CONGESTIVE) HEART FAILURE (3) CKD (chronic kidney disease) Code(s): N18.9 - CHRONIC KIDNEY DISEASE, UNSPECIFIED Qualifiers: Chronic kidney disease stage: stage 2 (mild) Qualified Code(s): N18.2 - Chronic kidney disease, stage 2 (mild) (4) Type 2 diabetes mellitus Code(s): E11.9 - TYPE 2 DIABETES MELLITUS WITHOUT COMPLICATIONS Qualifiers: Diabetes mellitus 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
[2018-07-11] MEDS: GLIMEPIRIDE 1 MG TABLET (FP) PO SCH (12:22)
--- NOTE | 2018-07-11 14:42 | PN ---
Progress Note, Physician History of Present Illness: Pt seen and examined at bedside. He is awake and alert. He denies shortness of breath. - Current Medication List Current Medications: Active Medications Amoxicillin/Clavulanate Potassium (Augmentin - 500mg Tablet) 1 tab PO BID@0800, 1730 [facility] Last Admin: 07/11/18 10:00 Dose: 1 tab Aspirin (Asa -) 81 mg PO DAILY [facility] Last Admin: 07/11/18 09:59 Dose: 81 mg Bismuth Subsalicylate (Pepto-Bismol Liquid -) 30 ml PO Q12H PRN PRN Reason: DIARRHEA Last Admin: 07/04/18 11:40 Dose: 30 ml Carvedilol (Coreg -) 6.25 mg PO BID [facility] Last Admin: 07/11/18 10:00 Dose: 6.25 mg Clonidine (Catapres -) 0.2 mg PO TID [facility] Last Admin: 07/11/18 05:33 Dose: 0.2 mg Clopidogrel Bisulfate (Plavix -) 75 mg PO DAILY [facility] Last Admin: 07/11/18 09:59 Dose: 75 mg Finasteride (Proscar -) 5 mg PO DAILY [facility] Last Admin: 07/11/18 09:59 Dose: 5 mg Glimepiride (Amaryl -) 1 mg PO DAILY@0700 [facility] Last Admin: 07/11/18 12:22 Dose: Not Given Isosorbide Mononitrate (Imdur -) 120 mg PO DAILY [facility] Last Admin: 07/11/18 09:59 Dose: 120 mg Minoxidil (Lonitin -) 5 mg PO DAILY [facility] Last Admin: 07/11/18 10:00 Dose: 5 mg - Objective Vital Signs: Vital Signs Temperature 98.5 F 07/11/18 14:00 Pulse Rate 58 L 07/11/18 14:00 Respiratory Rate 20 07/11/18 14:00 Blood Pressure 115/41 L 07/11/18 14:00 O2 Sat by Pulse Oximetry (%) 97 07/11/18 09:00 Constitutional: Yes: Calm Eyes: Yes: Conjunctiva Clear HENT: Yes: Atraumatic Neck: Yes: Supple Cardiovascular: Yes: S1, S2 Respiratory: Yes: CTA Bilaterally Gastrointestinal: Yes: Soft Genitourinary: Yes: WNL Musculoskeletal: Yes: WNL Edema: Yes Edema: LLE: 1+, RLE: 1+ Neurological: Yes: Oriented Psychiatric: Yes: Oriented Labs: CBC, BMP 07/10/18 05:30 07/10/18 05:30 INR, PTT INR 1.13 (0.83-1.09) H 07/01/18 15:25 Problem List - Problems (1) CKD (chronic kidney disease) Code(s): N18.9 - CHRONIC KIDNEY DISEASE, UNSPECIFIED Qualifiers: Chronic kidney disease stage: stage 2 (mild) Qualified Code(s): N18.2 - Chronic kidney disease, stage 2 (mild) (2) HTN (hypertension) Code(s): I10 - ESSENTIAL (PRIMARY) HYPERTENSION Qualifiers: Hypertension type: essential hypertension Qualified Code(s): I10 - Essential (primary) hypertension (3) Hypertensive emergency Code(s): I16.1 - HYPERTENSIVE EMERGENCY (4) Type 2 diabetes mellitus Code(s): E11.9 - TYPE 2 DIABETES MELLITUS WITHOUT COMPLICATIONS Qualifiers: Diabetes mellitus fpc insulin use: without fpc use Assessment/Plan Current Medications Generic Name Dose Route Start Last Admin Trade Name Freq PRN Reason Stop Dose Admin Amoxicillin/Clavulanate Potassium 1 tab 07/10/18 17:30 07/11/18 10:00 Augmentin - 500mg Tablet PO 1 tab BID@0800,1730 [facility] Administration Aspirin 81 mg 07/02/18 10:00 07/11/18 09:59 Asa - PO 81 mg DAILY [facility] Administration Bismuth Subsalicylate 30 ml 07/04/18 09:04 07/04/18 11:40 Pepto-Bismol Liquid - PO 30 ml Q12H PRN Administration DIARRHEA Carvedilol 6.25 mg 07/10/18 10:45 07/11/18 10:00 Coreg - PO 6.25 mg BID [facility] Administration Clonidine 0.2 mg 07/10/18 10:56 07/11/18 05:33 Catapres - PO 0.2 mg TID [facility] Administration Clopidogrel Bisulfate 75 mg 07/02/18 10:00 07/11/18 09:59 Plavix - PO 75 mg DAILY [facility] Administration Finasteride 5 mg 07/02/18 10:00 07/11/18 09:59 Proscar - PO 5 mg DAILY [facility] Administration Glimepiride 1 mg 07/02/18 07:00 07/11/18 12:22 Amaryl - PO Not Given DAILY@0700 [facility] Isosorbide Mononitrate 120 mg 07/04/18 09:51 07/11/18 09:59 Imdur - PO 120 mg DAILY [facility] Administration Minoxidil 5 mg 07/05/18 10:45 07/11/18 10:00 Lonitin - PO 5 mg DAILY [facility] Administration Impression 1. CKD vs MIKI 2. HTN - resistant 3. renal artery stenosis 4. DM 5. fluid overload 6. chf dialstolic 7. proteinuria Plan - no new labs, check in am - agree with increasing coreg and decreasing clonidine - cardio input appreciated - diuretics on hold, volume status is stable - will need outpt renal follow up and workup Dr Wise
--- NOTE | 2018-07-11 17:11 | PN ---
Progress Note, Physician History of Present Illness: feeling good - Current Medication List Current Medications: Active Medications Amoxicillin/Clavulanate Potassium (Augmentin - 500mg Tablet) 1 tab PO BID@0800, 1730 [facility] Last Admin: 07/11/18 10:00 Dose: 1 tab Aspirin (Asa -) [address] [facility] Last Admin: 07/11/18 09:59 Dose: 81 mg Bismuth Subsalicylate (Pepto-Bismol Liquid -) 30 ml PO Q12H PRN PRN Reason: DIARRHEA Last Admin: 07/04/18 11:40 Dose: 30 ml Carvedilol (Coreg -) 6.[address] [facility] Last Admin: 07/11/18 10:00 Dose: 6.25 mg Clonidine (Catapres -) 0.[address] [facility] Last Admin: 07/11/18 14:53 Dose: 0.2 mg Clopidogrel Bisulfate (Plavix -) [address] [facility] Last Admin: 07/11/18 09:59 Dose: 75 mg Finasteride (Proscar -) [address] [facility] Last Admin: 07/11/18 09:59 Dose: 5 mg Glimepiride (Amaryl -) 1 mg PO DAILY@0700 [facility] Last Admin: 07/11/18 12:22 Dose: Not Given Isosorbide Mononitrate (Imdur -) [address] [facility] Last Admin: 07/11/18 09:59 Dose: 120 mg Minoxidil (Lonitin -) [address] [facility] Last Admin: 07/11/18 10:00 Dose: 5 mg - Objective Vital Signs: Vital Signs Temperature 98.5 F 07/11/18 14:00 Pulse Rate 58 L 07/11/18 14:00 Respiratory Rate 20 07/11/18 14:00 Blood Pressure 154/56 L 07/11/18 14:53 O2 Sat by Pulse Oximetry (%) 97 07/11/18 09:00 HENT: Yes: Atraumatic Neck: Yes: Supple Cardiovascular: Yes: Regular Rate and Rhythm Respiratory: Yes: CTA Bilaterally Gastrointestinal: Yes: Normal Bowel Sounds Extremities: Yes: WNL Edema: No Peripheral Pulses WNL: Yes Neurological: Yes: Alert, Oriented Labs: CBC, BMP 07/10/18 05:30 07/10/18 05:30 INR, PTT INR 1.13 (0.83-1.09) H 07/01/18 15:25 Problem List - Problems (1) Dyspnea Assessment/Plan: stable Code(s): R06.00 - DYSPNEA, UNSPECIFIED (2) Acute diastolic (congestive) heart failure Assessment/Plan: monitor bp karlos and diuretic on hold Code(s): I50.31 - ACUTE DIASTOLIC (CONGESTIVE) HEART FAILURE (3) CKD (chronic kidney disease) Assessment/Plan: monitor renal consult reviewed Code(s): N18.9 - CHRONIC KIDNEY DISEASE, UNSPECIFIED Qualifiers: Chronic kidney disease stage: stage 2 (mild) Qualified Code(s): N18.2 - Chronic kidney disease, stage 2 (mild) (4) Type 2 diabetes mellitus Assessment/Plan: on meds monitor bgms Code(s): E11.9 - TYPE 2 DIABETES MELLITUS WITHOUT COMPLICATIONS Qualifiers: Diabetes mellitus vermin 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 getting adjusted by cardiology Code(s): I16.1 - HYPERTENSIVE EMERGENCY (6) Subendocardial ischemia Code(s): I24.8 - OTHER FORMS OF ACUTE ISCHEMIC HEART DISEASE
[2018-07-12] MEDS: cloNIDine HCL 0.1 MG TABLET PO SCH ×3 (05:15→21:28)
[2018-07-12] MEDS: GLIMEPIRIDE 1 MG TABLET (FP) PO SCH (06:56)
[2018-07-12 07:56] LABS: ALBUMIN 3.2 g/dl (3.4-5.0); BILIRUBIN,TOTAL 0.6 mg/dL (0.2-1); CALCIUM 8.7 mg/dL (8.5-10.1); CREATININE 1.7 mg/dL (0.55-1.3); POTASSIUM 4.5 mmol/L (3.5-5.1)
[2018-07-12] MEDS: AMOX TR/POT CLAV 500MG/125MG TABLETS (FP) PO SCH ×2 (08:38→17:39)
--- NOTE | 2018-07-12 09:30 | PN ---
Progress Note, Physician History of Present Illness: Dyspnea, orthopnea, LE edema improving with diuresis, no further vasovagal episodes, attempting to wean clonidine which may account for labile blood pressures and bradyarrhythmia. - Current Medication List Current Medications: Active Medications Amoxicillin/Clavulanate Potassium (Augmentin - 500mg Tablet) 1 tab PO BID@0800, 1730 [facility] Last Admin: 07/12/18 08:38 Dose: 1 tab Aspirin (Asa -) 81 mg PO DAILY [facility] Last Admin: 07/11/18 09:59 Dose: 81 mg Bismuth Subsalicylate (Pepto-Bismol Liquid -) 30 ml PO Q12H PRN PRN Reason: DIARRHEA Last Admin: 07/04/18 11:40 Dose: 30 ml Carvedilol (Coreg -) 6.25 mg PO BID [facility] Last Admin: 07/11/18 21:24 Dose: 6.25 mg Clonidine (Catapres -) 0.2 mg PO TID [facility] Last Admin: 07/12/18 05:15 Dose: 0.2 mg Clopidogrel Bisulfate (Plavix -) 75 mg PO DAILY [facility] Last Admin: 07/11/18 09:59 Dose: 75 mg Finasteride (Proscar -) 5 mg PO DAILY [facility] Last Admin: 07/11/18 09:59 Dose: 5 mg Glimepiride (Amaryl -) 1 mg PO DAILY@0700 [facility] Last Admin: 07/12/18 06:56 Dose: 1 mg Isosorbide Mononitrate (Imdur -) 120 mg PO DAILY [facility] Last Admin: 07/11/18 09:59 Dose: 120 mg Minoxidil (Lonitin -) 5 mg PO DAILY [facility] Last Admin: 07/11/18 10:00 Dose: 5 mg - Objective Vital Signs: Vital Signs Temperature 98.2 F 07/12/18 02:00 Pulse Rate 53 L 07/12/18 04:14 Respiratory Rate 20 07/12/18 04:14 Blood Pressure 182/60 H 07/12/18 04:14 O2 Sat by Pulse Oximetry (%) 97 07/11/18 21:00 Constitutional: Yes: No Distress, Calm Neck: Yes: Supple Cardiovascular: Yes: Regular Rate and Rhythm Respiratory: Yes: Regular, Diminished Gastrointestinal: Yes: Normal Bowel Sounds, Soft Edema: Yes Edema: LLE: 1+, RLE: 1+ Integumentary: Yes: Venous Stasis Changes Labs: CBC, BMP 07/10/18 05:30 07/12/18 05:30 INR, PTT INR 1.13 (0.83-1.09) H 07/01/18 15:25 - ....Imaging EKG: Report Reviewed (Tele: SR) Problem List - Problems (1) Acute diastolic (congestive) heart failure Code(s): I50.31 - ACUTE DIASTOLIC (CONGESTIVE) HEART FAILURE (2) Hypertensive emergency Code(s): I16.1 - HYPERTENSIVE EMERGENCY (3) Subendocardial ischemia Code(s): I24.8 - OTHER FORMS OF ACUTE ISCHEMIC HEART DISEASE (4) Type 2 diabetes mellitus Code(s): E11.9 - TYPE 2 DIABETES MELLITUS WITHOUT COMPLICATIONS Qualifiers: Diabetes mellitus terminal operations supervisor insulin use: without retirement use (5) CKD (chronic kidney disease) Code(s): N18.9 - CHRONIC KIDNEY DISEASE, UNSPECIFIED Qualifiers: Chronic kidney disease stage: stage 2 (mild) Qualified Code(s): N18.2 - Chronic kidney disease, stage 2 (mild) Assessment/Plan 07/02/2018 Echo: Borderline cLVH, normal LV and RV size and fxn, LVEF 60-65%, mild LAE, tr MR, TR, mild pericardial effusions Echo: Mild cLVH, normal LVEF 55%, PFO with L->R shunt 07/02/2018 Renal US: No hydro 05/23/2018 No evidence of renal artery stenosis 1. Acute hypoxic respiratory failure referable to 2. Acute on chronic diastolic heart failure with subendocardial ischemic injury 3. Resistant hypertension 4. Type 2 DM 5. H/o stroke 6. Acute on CKD with proteinuria resolving, no renal artery stenosis on imaging 7. Allergies to calcium channel blockers and hydralazine 8. RSD with RUE crush injury 9. Vasovagal episode P:1. Holding Demadex 40 qd, resume vasotec 10 bid given renal recovery 2. Continue ASA 81 qd, Plavix 75 qd, Imdur 120 qd, increase carvedilol 12.5 bid , decrease clonidine 0.1 tid and minoxidil 5 qd with uptitration as hemodynamics tolerate 3. Review of records from [facility] and [facility] confirm resistant HTN 4. Studies on renal sympathetic denervation for resistant HTN did not show efficacy 5. Addressed on abortive maneuvers once prodromal sxs have been experienced
[2018-07-12] MEDS: FINASTERIDE 5 MG TABLET (FP) PO SCH (10:39)
[2018-07-12] MEDS: CARVEDILOL 6.25 MG TABLET (FP) PO SCH ×2 (10:40→21:28)
[2018-07-12] MEDS: ISOSORBIDE MONONITRATE 60 MG TAB.SR.24H (FP) PO SCH (10:40)
[2018-07-12] MEDS: ASPIRIN 81 MG CHEWABLE TABLETS PO SCH (10:40)
[2018-07-12] MEDS: CLOPIDOGREL BISULFATE 75 MG TABLET (FP) PO SCH (10:40)
[2018-07-12] MEDS: MINOXIDIL 2.5 MG TABLET PO SCH (10:41)
[2018-07-12] MEDS: ENALAPRIL MALEATE 10 MG TABLET (FP) PO SCH ×2 (11:57→21:28)
--- NOTE | 2018-07-12 14:05 | PN ---
Progress Note, Physician History of Present Illness: improving oozing less - Current Medication List Current Medications: Active Medications Amoxicillin/Clavulanate Potassium (Augmentin - 500mg Tablet) 1 tab PO BID@0800, 1730 [facility] Last Admin: 07/12/18 08:38 Dose: 1 tab Aspirin (Asa -) 81 mg PO DAILY [facility] Last Admin: 07/12/18 10:40 Dose: 81 mg Bismuth Subsalicylate (Pepto-Bismol Liquid -) 30 ml PO Q12H PRN PRN Reason: DIARRHEA Last Admin: 07/04/18 11:40 Dose: 30 ml Carvedilol (Coreg -) 12.5 mg PO BID [facility] Clonidine (Catapres -) 0.1 mg PO TID [facility] Clopidogrel Bisulfate (Plavix -) 75 mg PO DAILY [facility] Last Admin: 07/12/18 10:40 Dose: 75 mg Enalapril Maleate (Vasotec -) 10 mg PO BID [facility] Last Admin: 07/12/18 11:57 Dose: 10 mg Finasteride (Proscar -) 5 mg PO DAILY [facility] Last Admin: 07/12/18 10:39 Dose: 5 mg Glimepiride (Amaryl -) 1 mg PO DAILY@0700 [facility] Last Admin: 07/12/18 06:56 Dose: 1 mg Isosorbide Mononitrate (Imdur -) 120 mg PO DAILY [facility] Last Admin: 07/12/18 10:40 Dose: 120 mg Minoxidil (Lonitin -) 5 mg PO DAILY [facility] Last Admin: 07/12/18 10:41 Dose: 5 mg - Objective Vital Signs: Vital Signs Temperature 97.9 F 07/12/18 10:00 Pulse Rate 57 L 07/12/18 10:00 Respiratory Rate 20 07/12/18 10:00 Blood Pressure 193/60 H 07/12/18 10:00 O2 Sat by Pulse Oximetry (%) 97 07/11/18 21:00 Constitutional: Yes: No Distress, Calm Cardiovascular: Yes: S1, S2 Respiratory: Yes: Regular, CTA Bilaterally Gastrointestinal: Yes: Normal Bowel Sounds, Soft Musculoskeletal: Yes: WNL Extremities: Yes: Other Wound/Incision: Yes: Dressing Dry and Intact Neurological: Yes: Alert, Oriented Psychiatric: Yes: Alert, Oriented Labs: CBC, BMP 07/10/18 05:30 07/12/18 05:30 INR, PTT INR 1.13 (0.83-1.09) H 07/01/18 15:25 Assessment/Plan Problem List - Problems (1) Dyspnea Code(s): R06.00 - DYSPNEA, UNSPECIFIED (2) Acute diastolic (congestive) heart failure Code(s): I50.31 - ACUTE DIASTOLIC (CONGESTIVE) HEART FAILURE (3) CKD (chronic kidney disease) Code(s): N18.9 - CHRONIC KIDNEY DISEASE, UNSPECIFIED Qualifiers: Chronic kidney disease stage: stage 2 (mild) Qualified Code(s): N18.2 - Chronic kidney disease, stage 2 (mild) (4) Type 2 diabetes mellitus Code(s): E11.9 - TYPE 2 DIABETES MELLITUS WITHOUT COMPLICATIONS Qualifiers: Diabetes mellitus detention insulin use: without petroleum terminal plant operator use (5) Hypertensive emergency Code(s): I16.1 - HYPERTENSIVE EMERGENCY (6) Subendocardial ischemia Code(s): I24.8 - OTHER FORMS OF ACUTE ISCHEMIC HEART DISEASE 7 wound infection plan continue current mgmt wound care rest as per the team
--- NOTE | 2018-07-12 15:41 | PN ---
Progress Note, Physician History of Present Illness: Pt seen and examined at bedside. He is awake and alert. He denies shortness of breath. - Current Medication List Current Medications: Active Medications Amoxicillin/Clavulanate Potassium (Augmentin - 500mg Tablet) 1 tab PO BID@0800, 1730 [facility] Last Admin: 07/12/18 08:38 Dose: 1 tab Aspirin (Asa -) 81 mg PO DAILY [facility] Last Admin: 07/12/18 10:40 Dose: 81 mg Bismuth Subsalicylate (Pepto-Bismol Liquid -) 30 ml PO Q12H PRN PRN Reason: DIARRHEA Last Admin: 07/04/18 11:40 Dose: 30 ml Carvedilol (Coreg -) 12.5 mg PO BID [facility] Clonidine (Catapres -) 0.1 mg PO TID [facility] Last Admin: 07/12/18 15:06 Dose: Not Given Clopidogrel Bisulfate (Plavix -) 75 mg PO DAILY [facility] Last Admin: 07/12/18 10:40 Dose: 75 mg Enalapril Maleate (Vasotec -) 10 mg PO BID [facility] Last Admin: 07/12/18 11:57 Dose: 10 mg Finasteride (Proscar -) 5 mg PO DAILY [facility] Last Admin: 07/12/18 10:39 Dose: 5 mg Glimepiride (Amaryl -) 1 mg PO DAILY@0700 [facility] Last Admin: 07/12/18 06:56 Dose: 1 mg Isosorbide Mononitrate (Imdur -) 120 mg PO DAILY [facility] Last Admin: 07/12/18 10:40 Dose: 120 mg Minoxidil (Lonitin -) 5 mg PO DAILY [facility] Last Admin: 07/12/18 10:41 Dose: 5 mg - Objective Vital Signs: Vital Signs Temperature 97.9 F 07/12/18 14:00 Pulse Rate 48 L 07/12/18 14:00 Respiratory Rate 20 07/12/18 14:00 Blood Pressure 131/38 L 07/12/18 14:00 O2 Sat by Pulse Oximetry (%) 97 07/11/18 21:00 Constitutional: Yes: Calm Eyes: Yes: Conjunctiva Clear HENT: Yes: Atraumatic Neck: Yes: Supple Cardiovascular: Yes: S1, S2 Respiratory: Yes: CTA Bilaterally Gastrointestinal: Yes: Soft Genitourinary: Yes: WNL Edema: Yes Edema: LLE: 1+, RLE: 1+ Neurological: Yes: Oriented Psychiatric: Yes: Oriented Labs: CBC, BMP 07/10/18 05:30 07/12/18 05:30 INR, PTT INR 1.13 (0.83-1.09) H 07/01/18 15:25 Problem List - Problems (1) CKD (chronic kidney disease) Code(s): N18.9 - CHRONIC KIDNEY DISEASE, UNSPECIFIED Qualifiers: Qualified Code(s): N18.2 - Chronic kidney disease, stage 2 (mild) (2) HTN (hypertension) Code(s): I10 - ESSENTIAL (PRIMARY) HYPERTENSION Qualifiers: Qualified Code(s): I10 - Essential (primary) hypertension (3) Hypertensive emergency Code(s): I16.1 - HYPERTENSIVE EMERGENCY (4) Type 2 diabetes mellitus Code(s): E11.9 - TYPE 2 DIABETES MELLITUS WITHOUT COMPLICATIONS Assessment/Plan Current Medications Generic Name Dose Route Start Last Admin Trade Name Freq PRN Reason Stop Dose Admin Amoxicillin/Clavulanate Potassium 1 tab 07/10/18 17:30 07/12/18 08:38 Augmentin - 500mg Tablet PO 1 tab BID@0800,1730 [facility] Administration Aspirin 81 mg 07/02/18 10:00 07/12/18 10:40 Asa - PO 81 mg DAILY [facility] Administration Bismuth Subsalicylate 30 ml 07/04/18 09:04 07/04/18 11:40 Pepto-Bismol Liquid - PO 30 ml Q12H PRN Administration DIARRHEA Carvedilol 12.5 mg 07/12/18 22:00 Coreg - PO BID [facility] Clonidine 0.1 mg 07/12/18 14:00 07/12/18 15:06 Catapres - PO Not Given TID [facility] Clopidogrel Bisulfate 75 mg 07/02/18 10:00 07/12/18 10:40 Plavix - PO 75 mg DAILY [facility] Administration Enalapril Maleate 10 mg 07/12/18 10:45 07/12/18 11:57 Vasotec - PO 10 mg BID [facility] Administration Finasteride 5 mg 07/02/18 10:00 07/12/18 10:39 Proscar - PO 5 mg DAILY [facility] Administration Glimepiride 1 mg 07/02/18 07:00 07/12/18 06:56 Amaryl - PO 1 mg DAILY@0700 [facility] Administration Isosorbide Mononitrate 120 mg 07/04/18 09:51 07/12/18 10:40 Imdur - PO 120 mg DAILY [facility] Administration Minoxidil 5 mg 07/05/18 10:45 07/12/18 10:41 Lonitin - PO 5 mg DAILY [facility] Administration Impression 1. CKD vs MIKI 2. HTN - resistant 3. renal artery stenosis 4. DM 5. fluid overload 6. chf dialstolic 7. proteinuria Plan - renal function starting to improve - cont to titrate down clonidine - enalepril restarted - torsemide prn - monitor bp closely - discussed with cardio - will need outpt renal follow up and workup Dr Wise
--- NOTE | 2018-07-12 15:41 | PN ---
Progress Note, Physician History of Present Illness: feeling good - Current Medication List Current Medications: Active Medications Amoxicillin/Clavulanate Potassium (Augmentin - 500mg Tablet) 1 tab PO BID@0800, 1730 [facility] Last Admin: 07/12/18 08:38 Dose: 1 tab Aspirin (Asa -) 81 mg PO DAILY [facility] Last Admin: 07/12/18 10:40 Dose: 81 mg Bismuth Subsalicylate (Pepto-Bismol Liquid -) 30 ml PO Q12H PRN PRN Reason: DIARRHEA Last Admin: 07/04/18 11:40 Dose: 30 ml Carvedilol (Coreg -) 12.5 mg PO BID [facility] Clonidine (Catapres -) 0.1 mg PO TID [facility] Last Admin: 07/12/18 15:06 Dose: Not Given Clopidogrel Bisulfate (Plavix -) 75 mg PO DAILY [facility] Last Admin: 07/12/18 10:40 Dose: 75 mg Enalapril Maleate (Vasotec -) 10 mg PO BID [facility] Last Admin: 07/12/18 11:57 Dose: 10 mg Finasteride (Proscar -) 5 mg PO DAILY [facility] Last Admin: 07/12/18 10:39 Dose: 5 mg Glimepiride (Amaryl -) 1 mg PO DAILY@0700 [facility] Last Admin: 07/12/18 06:56 Dose: 1 mg Isosorbide Mononitrate (Imdur -) 120 mg PO DAILY [facility] Last Admin: 07/12/18 10:40 Dose: 120 mg Minoxidil (Lonitin -) 5 mg PO DAILY [facility] Last Admin: 07/12/18 10:41 Dose: 5 mg - Objective Vital Signs: Vital Signs Temperature 97.9 F 07/12/18 14:00 Pulse Rate 48 L 07/12/18 14:00 Respiratory Rate 20 07/12/18 14:00 Blood Pressure 131/38 L 07/12/18 14:00 O2 Sat by Pulse Oximetry (%) 97 07/11/18 21:00 HENT: Yes: Atraumatic Neck: Yes: Supple Cardiovascular: Yes: Regular Rate and Rhythm Respiratory: Yes: CTA Bilaterally Gastrointestinal: Yes: Normal Bowel Sounds Extremities: Yes: Other (wound b/l lamont ...chronic) Edema: Yes Edema: LLE: 3+, RLE: 3+ Peripheral Pulses WNL: Yes Neurological: Yes: Alert, Oriented Labs: CBC, BMP 07/10/18 05:30 07/12/18 05:30 INR, PTT INR 1.13 (0.83-1.09) H 07/01/18 15:25 Problem List - Problems (1) Dyspnea Assessment/Plan: stable Code(s): R06.00 - DYSPNEA, UNSPECIFIED (2) Acute diastolic (congestive) heart failure Assessment/Plan: monitor bp karlos and diuretic on hold Code(s): I50.31 - ACUTE DIASTOLIC (CONGESTIVE) HEART FAILURE (3) CKD (chronic kidney disease) Assessment/Plan: monitor renal consult reviewed Code(s): N18.9 - CHRONIC KIDNEY DISEASE, UNSPECIFIED Qualifiers: Chronic kidney disease stage: stage 2 (mild) Qualified Code(s): N18.2 - Chronic kidney disease, stage 2 (mild) (4) Type 2 diabetes mellitus Assessment/Plan: on meds monitor bgms Code(s): E11.9 - TYPE 2 DIABETES MELLITUS WITHOUT COMPLICATIONS Qualifiers: Diabetes mellitus custodial insulin use: without custodial use (5) Hypertensive emergency Assessment/Plan: on meds... getting adjusted by cardiology Code(s): I16.1 - HYPERTENSIVE EMERGENCY (6) Subendocardial ischemia Assessment/Plan: fu troponins on tele Code(s): I24.8 - OTHER FORMS OF ACUTE ISCHEMIC HEART DISEASE
[2018-07-13] MEDS: cloNIDine HCL 0.1 MG TABLET PO SCH ×3 (07:00→21:03)
[2018-07-13] MEDS: GLIMEPIRIDE 1 MG TABLET (FP) PO SCH (07:00)
[2018-07-13 08:21] LABS: CALCIUM 8.9 mg/dL (8.5-10.1); CREATININE 1.6 mg/dL (0.55-1.3); POTASSIUM 4.4 mmol/L (3.5-5.1)
--- NOTE | 2018-07-13 09:06 | PN ---
Progress Note (short form) - Note Progress Note: RENAL Pt is awake and alert comfortable Last Vital Signs Temp Pulse Resp BP Pulse Ox 98.0 F 63 18 173/65 H 97 07/13/18 06:00 07/13/18 06:00 07/13/18 06:00 07/13/18 06:00 07/12/18 20:20 lungs clear cvs s1s2 rr abd soft ext bilat edema neuro a+ox3 CBC, BMP 07/10/18 05:30 07/13/18 06:00 Current Medications Generic Name Dose Route Start Last Admin Trade Name Freq PRN Reason Stop Dose Admin Amoxicillin/Clavulanate Potassium 1 tab 07/10/18 17:30 07/12/18 17:39 Augmentin - 500mg Tablet PO 1 tab BID@0800,1730 [facility] Administration Aspirin 81 mg 07/02/18 10:00 07/12/18 10:40 Asa - PO 81 mg DAILY [facility] Administration Bismuth Subsalicylate 30 ml 07/04/18 09:04 07/04/18 11:40 Pepto-Bismol Liquid - PO 30 ml Q12H PRN Administration DIARRHEA Carvedilol 12.5 mg 07/12/18 22:00 07/12/18 21:28 Coreg - PO 12.5 mg BID [facility] Administration Clonidine 0.1 mg 07/12/18 14:00 07/13/18 07:00 Catapres - PO 0.1 mg TID [facility] Administration Clopidogrel Bisulfate 75 mg 07/02/18 10:00 07/12/18 10:40 Plavix - PO 75 mg DAILY [facility] Administration Enalapril Maleate 10 mg 07/12/18 10:45 07/12/18 21:28 Vasotec - PO 10 mg BID [facility] Administration Finasteride 5 mg 07/02/18 10:00 07/12/18 10:39 Proscar - PO 5 mg DAILY [facility] Administration Glimepiride 1 mg 07/02/18 07:00 07/13/18 07:00 Amaryl - PO 1 mg DAILY@0700 [facility] Administration Isosorbide Mononitrate 120 mg 07/04/18 09:51 07/12/18 10:40 Imdur - PO 120 mg DAILY [facility] Administration Minoxidil 5 mg 07/05/18 10:45 07/12/18 10:41 Lonitin - PO 5 mg DAILY [facility] Administration Impression 1. CKD vs MIKI 2. HTN - resistant 3. renal artery stenosis- by history but kidneys are not atrophic 4. DM 5. fluid overload 6. chf dialstolic 7. proteinuria Plan would start aldactone and reduce clonidine further- can reduce proteinuria and help with bp must stay on diuretics and beta blockers while on minoxidil MV
[2018-07-13] MEDS ORDERED: PT OWN MED DRAWER 7, Y5N ONE (09:33)
[2018-07-13] MEDS: FINASTERIDE 5 MG TABLET (FP) PO SCH (10:57)
[2018-07-13] MEDS: CARVEDILOL 6.25 MG TABLET (FP) PO SCH ×2 (10:57→21:03)
[2018-07-13] MEDS: ISOSORBIDE MONONITRATE 60 MG TAB.SR.24H (FP) PO SCH (10:57)
[2018-07-13] MEDS: ENALAPRIL MALEATE 10 MG TABLET (FP) PO SCH ×2 (10:57→21:04)
[2018-07-13] MEDS: AMOX TR/POT CLAV 500MG/125MG TABLETS (FP) PO SCH ×2 (10:57→18:14)
[2018-07-13] MEDS: ASPIRIN 81 MG CHEWABLE TABLETS PO SCH (10:57)
[2018-07-13] MEDS: CLOPIDOGREL BISULFATE 75 MG TABLET (FP) PO SCH (10:57)
[2018-07-13] MEDS: MINOXIDIL 2.5 MG TABLET PO SCH (10:58)
--- NOTE | 2018-07-13 12:56 | PN ---
Progress Note, Physician - Current Medication List Current Medications: Active Medications Amoxicillin/Clavulanate Potassium (Augmentin - 500mg Tablet) 1 tab PO BID@0800, 1730 [facility] Last Admin: 07/13/18 10:57 Dose: 1 tab Aspirin (Asa -) 81 mg PO DAILY [facility] Last Admin: 07/13/18 10:57 Dose: 81 mg Bismuth Subsalicylate (Pepto-Bismol Liquid -) 30 ml PO Q12H PRN PRN Reason: DIARRHEA Last Admin: 07/04/18 11:40 Dose: 30 ml Carvedilol (Coreg -) 12.5 mg PO BID [facility] Last Admin: 07/13/18 10:57 Dose: 12.5 mg Clonidine (Catapres -) 0.1 mg PO TID [facility] Last Admin: 07/13/18 07:00 Dose: 0.1 mg Clopidogrel Bisulfate (Plavix -) 75 mg PO DAILY [facility] Last Admin: 07/13/18 10:57 Dose: 75 mg Enalapril Maleate (Vasotec -) 10 mg PO BID [facility] Last Admin: 07/13/18 10:57 Dose: 10 mg Finasteride (Proscar -) 5 mg PO DAILY [facility] Last Admin: 07/13/18 10:57 Dose: 5 mg Glimepiride (Amaryl -) 1 mg PO DAILY@0700 [facility] Last Admin: 07/13/18 07:00 Dose: 1 mg Isosorbide Mononitrate (Imdur -) 120 mg PO DAILY [facility] Last Admin: 07/13/18 10:57 Dose: 120 mg Minoxidil (Lonitin -) 5 mg PO DAILY [facility] Last Admin: 07/13/18 10:58 Dose: 5 mg - Objective Vital Signs: Vital Signs Temperature 97.5 F L 07/13/18 09:44 Pulse Rate 54 L 07/13/18 09:44 Respiratory Rate 18 07/13/18 09:44 Blood Pressure 152/50 L 07/13/18 09:44 O2 Sat by Pulse Oximetry (%) 98 07/13/18 09:00 Constitutional: Yes: No Distress HENT: Yes: Atraumatic Neck: Yes: Supple Cardiovascular: Yes: Regular Rate and Rhythm Respiratory: Yes: CTA Bilaterally Extremities: Yes: Other (b/l lamont chronic wound) Edema: Yes Edema: LLE: 3+, RLE: 3+ Neurological: Yes: Alert Labs: CBC, BMP 07/10/18 05:30 07/13/18 06:00 INR, PTT INR 1.13 (0.83-1.09) H 07/01/18 15:25 Problem List - Problems (1) Dyspnea Assessment/Plan: stable Code(s): R06.00 - DYSPNEA, UNSPECIFIED (2) Acute diastolic (congestive) heart failure Assessment/Plan: monitor bp karlos and diuretic on hold Code(s): I50.31 - ACUTE DIASTOLIC (CONGESTIVE) HEART FAILURE (3) CKD (chronic kidney disease) Assessment/Plan: monitor renal consult reviewed Code(s): N18.9 - CHRONIC KIDNEY DISEASE, UNSPECIFIED Qualifiers: Chronic kidney disease stage: stage 2 (mild) Qualified Code(s): N18.2 - Chronic kidney disease, stage 2 (mild) (4) Type 2 diabetes mellitus Assessment/Plan: on meds monitor bgms Code(s): E11.9 - TYPE 2 DIABETES MELLITUS WITHOUT COMPLICATIONS Qualifiers: Diabetes mellitus parts counterman insulin use: without chcf use (5) Hypertensive emergency Assessment/Plan: on meds... getting adjusted by cardiology Code(s): I16.1 - HYPERTENSIVE EMERGENCY (6) Subendocardial ischemia Code(s): I24.8 - OTHER FORMS OF ACUTE ISCHEMIC HEART DISEASE
--- NOTE | 2018-07-13 16:37 | PN ---
Progress Note, Physician History of Present Illness: Pt seen, events noted. States he feels well. Denies pain in LEs. Tolerating antibiotics. Denies having any specific complaints. - Current Medication List Current Medications: Active Medications Amoxicillin/Clavulanate Potassium (Augmentin - 500mg Tablet) 1 tab PO BID@0800, 1730 [facility] Last Admin: 07/13/18 10:57 Dose: 1 tab Aspirin (Asa -) 81 mg PO DAILY [facility] Last Admin: 07/13/18 10:57 Dose: 81 mg Bismuth Subsalicylate (Pepto-Bismol Liquid -) 30 ml PO Q12H PRN PRN Reason: DIARRHEA Last Admin: 07/04/18 11:40 Dose: 30 ml Carvedilol (Coreg -) 12.5 mg PO BID [facility] Last Admin: 07/13/18 10:57 Dose: 12.5 mg Clonidine (Catapres -) 0.1 mg PO TID [facility] Last Admin: 07/13/18 13:46 Dose: 0.1 mg Clopidogrel Bisulfate (Plavix -) 75 mg PO DAILY [facility] Last Admin: 07/13/18 10:57 Dose: 75 mg Enalapril Maleate (Vasotec -) 10 mg PO BID [facility] Last Admin: 07/13/18 10:57 Dose: 10 mg Finasteride (Proscar -) 5 mg PO DAILY [facility] Last Admin: 07/13/18 10:57 Dose: 5 mg Glimepiride (Amaryl -) 1 mg PO DAILY@0700 [facility] Last Admin: 07/13/18 07:00 Dose: 1 mg Isosorbide Mononitrate (Imdur -) 120 mg PO DAILY [facility] Last Admin: 07/13/18 10:57 Dose: 120 mg Minoxidil (Lonitin -) 5 mg PO DAILY [facility] Last Admin: 07/13/18 10:58 Dose: 5 mg - Objective Vital Signs: Vital Signs Temperature 97.7 F 07/13/18 14:00 Pulse Rate 50 L 07/13/18 14:00 Respiratory Rate 18 07/13/18 14:00 Blood Pressure 129/71 07/13/18 14:00 O2 Sat by Pulse Oximetry (%) 98 07/13/18 09:00 Constitutional: Yes: No Distress, Calm Cardiovascular: Yes: Regular Rate and Rhythm Respiratory: Yes: Diminished Gastrointestinal: Yes: Normal Bowel Sounds, Soft, Abdomen, Obese Wound/Incision: Yes: Other (b/l LE edema, no erythema/warmth/tenderness, dressing c/d/i) Neurological: Yes: Alert, Oriented Labs: CBC, BMP 07/10/18 05:30 07/13/18 06:00 INR, PTT INR 1.13 (0.83-1.09) H 07/01/18 15:25 Microbiology 07/07/18 12:30 Leg - Right Lower Gram Stain - Final 07/07/18 12:30 Leg - Right Lower Wound Culture - Final Staphylococcus Aureus Diphtheroid/Corynebacterium Enterococcus Faecalis 07/07/18 12:30 Leg - Left Lower Gram Stain - Final 07/07/18 12:30 Leg - Left Lower Wound Culture - Final Staphylococcus Aureus Enterococcus Faecalis Alpha Hemolytic Streptococcus Bacillus Species, Not Antracis Problem List - Problems (1) Acute diastolic (congestive) heart failure Code(s): I50.31 - ACUTE DIASTOLIC (CONGESTIVE) HEART FAILURE (2) BPH (benign prostatic hyperplasia) Code(s): N40.0 - BENIGN PROSTATIC HYPERPLASIA WITHOUT LOWER URINRY TRACT SYMP (3) CKD (chronic kidney disease) Code(s): N18.9 - CHRONIC KIDNEY DISEASE, UNSPECIFIED Qualifiers: Chronic kidney disease stage: stage 2 (mild) Qualified Code(s): N18.2 - Chronic kidney disease, stage 2 (mild) (4) HLD (hyperlipidemia) Code(s): E78.5 - HYPERLIPIDEMIA, UNSPECIFIED Qualifiers: Hyperlipidemia type: pure hypercholesterolemia Qualified Code(s): E78.00 - Pure hypercholesterolemia, unspecified; E78.0 - Pure hypercholesterolemia (5) HTN (hypertension) Code(s): I10 - ESSENTIAL (PRIMARY) HYPERTENSION Qualifiers: Hypertension type: essential hypertension Qualified Code(s): I10 - Essential (primary) hypertension (6) Hypertensive emergency Code(s): I16.1 - HYPERTENSIVE EMERGENCY (7) Subendocardial ischemia Code(s): I24.8 - OTHER FORMS OF ACUTE ISCHEMIC HEART DISEASE (8) Type 2 diabetes mellitus Code(s): E11.9 - TYPE 2 DIABETES MELLITUS WITHOUT COMPLICATIONS Qualifiers: Diabetes mellitus residential insulin use: without residential use Assessment/Plan LE infected ulcers/cellulitis - wound culture results noted Continue Augmentin Clinically improving
--- NOTE | 2018-07-13 17:27 | PN ---
Progress Note, Physician Chief Complaint: Pt A&OX3; sitting up at bedside; asymptomatic. History of Present Illness: 62-year-old male with history of CHF presents with progressive dyspnea and cough over the weekend. no CP, but reports epigastric discomfort, none currently. compliant with meds, denies f/c. - Current Medication List Current Medications: Active Medications Amoxicillin/Clavulanate Potassium (Augmentin - 500mg Tablet) 1 tab PO BID@0800, 1730 [facility] Last Admin: 07/13/18 10:57 Dose: 1 tab Aspirin (Asa -) 81 mg PO DAILY [facility] Last Admin: 07/13/18 10:57 Dose: 81 mg Bismuth Subsalicylate (Pepto-Bismol Liquid -) 30 ml PO Q12H PRN PRN Reason: DIARRHEA Last Admin: 07/04/18 11:40 Dose: 30 ml Carvedilol (Coreg -) 12.5 mg PO BID [facility] Last Admin: 07/13/18 10:57 Dose: 12.5 mg Clonidine (Catapres -) 0.1 mg PO TID [facility] Last Admin: 07/13/18 13:46 Dose: 0.1 mg Clopidogrel Bisulfate (Plavix -) 75 mg PO DAILY [facility] Last Admin: 07/13/18 10:57 Dose: 75 mg Enalapril Maleate (Vasotec -) 10 mg PO BID [facility] Last Admin: 07/13/18 10:57 Dose: 10 mg Finasteride (Proscar -) 5 mg PO DAILY [facility] Last Admin: 07/13/18 10:57 Dose: 5 mg Glimepiride (Amaryl -) 1 mg PO DAILY@0700 [facility] Last Admin: 07/13/18 07:00 Dose: 1 mg Isosorbide Mononitrate (Imdur -) 120 mg PO DAILY [facility] Last Admin: 07/13/18 10:57 Dose: 120 mg Minoxidil (Lonitin -) 5 mg PO DAILY [facility] Last Admin: 07/13/18 10:58 Dose: 5 mg - Objective Vital Signs: Vital Signs Temperature 97.7 F 07/13/18 14:00 Pulse Rate 50 L 07/13/18 14:00 Respiratory Rate 18 07/13/18 14:00 Blood Pressure 129/71 07/13/18 14:00 O2 Sat by Pulse Oximetry (%) 98 07/13/18 09:00 Constitutional: Yes: No Distress, Obese Eyes: Yes: WNL HENT: Yes: WNL Neck: Yes: WNL Cardiovascular: Yes: S1 (split), S2, S4 Respiratory: Yes: WNL Gastrointestinal: Yes: WNL, Abdomen, Obese. No: Tenderness ...Rectal Exam: Yes: Deferred Genitourinary: No: Anuria Breast(s): Yes: WNL Musculoskeletal: Yes: Muscle Weakness Extremities: Yes: Cool Edema: Yes Edema: LLE: Trace, RLE: Trace Peripheral Pulses WNL: No Peripheral Pulses: Left Doralis Pedis: 1+, Right Dorsalis Pedis: 1+ Integumentary: Yes: Venous Stasis Changes Wound/Incision: Yes: Dressing Dry and Intact (bilateral dressings LEs) Neurological: Yes: WNL Psychiatric: Yes: WNL Labs: CBC, BMP 07/10/18 05:30 07/13/18 06:00 INR, PTT INR 1.13 (0.83-1.09) H 07/01/18 15:25 Abnormal Lab Results 07/13/18 06:00 Sodium 134 L Anion Gap 6 L BUN 46 H Creatinine 1.6 H Random Glucose 140 H - ....Imaging Other: Image Reviewed (telemetry: NSR; no arrhythmias; rare pauses) Problem List - Problems (1) Obesity Code(s): E66.9 - OBESITY, UNSPECIFIED (2) Acute diastolic (congestive) heart failure Code(s): I50.31 - ACUTE DIASTOLIC (CONGESTIVE) HEART FAILURE (3) BPH (benign prostatic hyperplasia) Code(s): N40.0 - BENIGN PROSTATIC HYPERPLASIA WITHOUT LOWER URINRY TRACT SYMP (4) CKD (chronic kidney disease) Code(s): N18.9 - CHRONIC KIDNEY DISEASE, UNSPECIFIED Qualifiers: Chronic kidney disease stage: stage 2 (mild) Qualified Code(s): N18.2 - Chronic kidney disease, stage 2 (mild) (5) HLD (hyperlipidemia) Code(s): E78.5 - HYPERLIPIDEMIA, UNSPECIFIED Qualifiers: Hyperlipidemia type: pure hypercholesterolemia Qualified Code(s): E78.00 - Pure hypercholesterolemia, unspecified; E78.0 - Pure hypercholesterolemia (6) HTN (hypertension) Assessment/Plan: On enalapril, clonidine, carvedilol, minoxidil, isordil, furosemide. Will decrease clonidine to 0.1 mg bid and increase enalapril to 20 mg bid; f/u BP and HR (hold carvedilol dose: occasional pauses). F/u BUn/Cr and K+ with increase in ACEI. Code(s): I10 - ESSENTIAL (PRIMARY) HYPERTENSION Qualifiers: Hypertension type: essential hypertension Qualified Code(s): I10 - Essential (primary) hypertension (7) Type 2 diabetes mellitus Code(s): E11.9 - TYPE 2 DIABETES MELLITUS WITHOUT COMPLICATIONS Qualifiers: Diabetes mellitus marine oil terminal superintendent insulin use: without skilled nursing use (8) [place] cardiac risk >20% in next 10 years Assessment/Plan: F/u prior cardiac records; consider coronary artery evaluation (e.g. stress MIBI ) as oupatient if now done recently. (Pt denies having had stress test or coronary angiogram, but is on ASA and clopidogrel). Code(s): Z91.89 - OTH PERSONAL RISK FACTORS, NOT ELSEWHERE CLASSIFIED
[2018-07-14] MEDS: GLIMEPIRIDE 1 MG TABLET (FP) PO SCH (07:00)
--- NOTE | 2018-07-14 10:32 | PN ---
Progress Note (short form) - Note Progress Note: RENAL Pt is awake and alert comfortable Last Vital Signs Temp Pulse Resp BP Pulse Ox 98 F 51 L 18 207/75 H 96 07/14/18 06:57 07/14/18 06:57 07/14/18 06:57 07/14/18 06:57 07/13/18 20:52 lungs clear cvs s1s2 rr abd soft ext bilat edema neuro a+ox3 CBC, BMP 07/10/18 05:30 07/13/18 06:00 Current Medications Generic Name Dose Route Start Last Admin Trade Name Freq PRN Reason Stop Dose Admin Amoxicillin/Clavulanate Potassium 1 tab 07/10/18 17:30 07/13/18 18:14 Augmentin - 500mg Tablet PO 1 tab BID@0800,1730 CHERI Administration Aspirin 81 mg 07/02/18 10:00 07/13/18 10:57 Asa - PO 81 mg DAILY CHERI Administration Bismuth Subsalicylate 30 ml 07/04/18 09:04 07/04/18 11:40 Pepto-Bismol Liquid - PO 30 ml Q12H PRN Administration DIARRHEA Carvedilol 12.5 mg 07/12/18 22:00 07/13/18 21:03 Coreg - PO 12.5 mg BID CHERI Administration Clonidine 0.1 mg 07/13/18 22:00 07/13/18 21:03 Catapres - PO 0.1 mg BID CHERI Administration Clopidogrel Bisulfate 75 mg 07/02/18 10:00 07/13/18 10:57 Plavix - PO 75 mg DAILY CHERI Administration Enalapril Maleate 20 mg 07/14/18 07:45 Vasotec - PO BID CHERI Finasteride 5 mg 07/02/18 10:00 07/13/18 10:57 Proscar - PO 5 mg DAILY CHERI Administration Glimepiride 1 mg 07/02/18 07:00 07/13/18 07:00 Amaryl - PO 1 mg DAILY@0700 CHERI Administration Isosorbide Mononitrate 120 mg 07/04/18 09:51 07/13/18 10:57 Imdur - PO 120 mg DAILY CHERI Administration Minoxidil 5 mg 07/05/18 10:45 07/13/18 10:58 Lonitin - PO 5 mg DAILY CHERI Administration Impression 1. CKD vs MIKI 2. HTN - resistant 3. renal artery stenosis- by history but kidneys are not atrophic 4. DM 5. fluid overload 6. chf dialstolic 7. proteinuria Plan would start aldactone and reduce clonidine further- can reduce proteinuria and help with bp must stay on diuretics and beta blockers while on minoxidil pt has side effects to a lot of medications MV
[2018-07-14] MEDS: ENALAPRIL MALEATE 10 MG TABLET (FP) PO SCH ×3 (12:36→22:38)
[2018-07-14] MEDS: cloNIDine HCL 0.1 MG TABLET PO SCH ×3 (12:36→22:38)
[2018-07-14] MEDS: ASPIRIN 81 MG CHEWABLE TABLETS PO SCH (12:36)
[2018-07-14] MEDS: AMOX TR/POT CLAV 500MG/125MG TABLETS (FP) PO SCH ×2 (12:36→18:58)
[2018-07-14] MEDS: CARVEDILOL 6.25 MG TABLET (FP) PO SCH ×3 (12:37→22:38)
[2018-07-14] MEDS: ISOSORBIDE MONONITRATE 60 MG TAB.SR.24H (FP) PO SCH (12:37)
[2018-07-14] MEDS: FINASTERIDE 5 MG TABLET (FP) PO SCH (12:37)
[2018-07-14] MEDS: MINOXIDIL 2.5 MG TABLET PO SCH (12:37)
[2018-07-14] MEDS: CLOPIDOGREL BISULFATE 75 MG TABLET (FP) PO SCH (12:37)
[2018-07-14] MEDS: SPIRONOLACTONE 25 MG TABLET (FP) PO SCH (12:38)
--- NOTE | 2018-07-14 13:26 | PN ---
Progress Note, Physician History of Present Illness: Pt without new complaints. Denies LE pain. - Current Medication List Current Medications: Active Medications Amoxicillin/Clavulanate Potassium (Augmentin - 500mg Tablet) 1 tab PO BID@0800, 1730 [facility] Last Admin: 07/14/18 12:36 Dose: 1 tab Aspirin (Asa -) 81 mg PO DAILY [facility] Last Admin: 07/14/18 12:36 Dose: 81 mg Bismuth Subsalicylate (Pepto-Bismol Liquid -) 30 ml PO Q12H PRN PRN Reason: DIARRHEA Last Admin: 07/04/18 11:40 Dose: 30 ml Carvedilol (Coreg -) 12.5 mg PO BID [facility] Last Admin: 07/14/18 12:37 Dose: 12.5 mg Clonidine (Catapres -) 0.1 mg PO BID [facility] Last Admin: 07/14/18 12:36 Dose: 0.1 mg Clopidogrel Bisulfate (Plavix -) 75 mg PO DAILY [facility] Last Admin: 07/14/18 12:37 Dose: 75 mg Enalapril Maleate (Vasotec -) 20 mg PO BID [facility] Last Admin: 07/14/18 12:36 Dose: 20 mg Finasteride (Proscar -) 5 mg PO DAILY [facility] Last Admin: 07/14/18 12:37 Dose: 5 mg Glimepiride (Amaryl -) 1 mg PO DAILY@0700 [facility] Last Admin: 07/13/18 07:00 Dose: 1 mg Isosorbide Mononitrate (Imdur -) 120 mg PO DAILY [facility] Last Admin: 07/14/18 12:37 Dose: 120 mg Minoxidil (Lonitin -) 5 mg PO DAILY [facility] Last Admin: 07/14/18 12:37 Dose: 5 mg Spironolactone (Aldactone -) 25 mg PO DAILY [facility] Last Admin: 07/14/18 12:38 Dose: 25 mg - Objective Vital Signs: Vital Signs Temperature 98 F 07/14/18 06:57 Pulse Rate 51 L 07/14/18 06:57 Respiratory Rate 18 07/14/18 06:57 Blood Pressure 207/75 H 07/14/18 06:57 O2 Sat by Pulse Oximetry (%) 96 07/13/18 20:52 Constitutional: Yes: No Distress, Calm Cardiovascular: Yes: Regular Rate and Rhythm Respiratory: Yes: Regular Gastrointestinal: Yes: Normal Bowel Sounds, Soft, Abdomen, Obese Wound/Incision: Yes: Dressing Dry and Intact, Other (b/l LE edema, no tenderness , improved erythema) Labs: CBC, BMP 07/10/18 05:30 07/13/18 06:00 INR, PTT INR 1.13 (0.83-1.09) H 07/01/18 15:25 Microbiology 07/07/18 12:30 Leg - Right Lower Gram Stain - Final 07/07/18 12:30 Leg - Right Lower Wound Culture - Final Staphylococcus Aureus Diphtheroid/Corynebacterium Enterococcus Faecalis 07/07/18 12:30 Leg - Left Lower Gram Stain - Final 07/07/18 12:30 Leg - Left Lower Wound Culture - Final Staphylococcus Aureus Enterococcus Faecalis Alpha Hemolytic Streptococcus Bacillus Species, Not Antracis Problem List - Problems (1) Acute diastolic (congestive) heart failure Code(s): I50.31 - ACUTE DIASTOLIC (CONGESTIVE) HEART FAILURE (2) BPH (benign prostatic hyperplasia) Code(s): N40.0 - BENIGN PROSTATIC HYPERPLASIA WITHOUT LOWER URINRY TRACT SYMP (3) CKD (chronic kidney disease) Code(s): N18.9 - CHRONIC KIDNEY DISEASE, UNSPECIFIED Qualifiers: Qualified Code(s): N18.2 - Chronic kidney disease, stage 2 (mild) (4) HLD (hyperlipidemia) Code(s): E78.5 - HYPERLIPIDEMIA, UNSPECIFIED Qualifiers: Qualified Code(s): E78.00 - Pure hypercholesterolemia, unspecified; E78.0 - Pure hypercholesterolemia (5) HTN (hypertension) Code(s): I10 - ESSENTIAL (PRIMARY) HYPERTENSION Qualifiers: Qualified Code(s): I10 - Essential (primary) hypertension (6) Hypertensive emergency Code(s): I16.1 - HYPERTENSIVE EMERGENCY (7) Subendocardial ischemia Code(s): I24.8 - OTHER FORMS OF ACUTE ISCHEMIC HEART DISEASE (8) Type 2 diabetes mellitus Code(s): E11.9 - TYPE 2 DIABETES MELLITUS WITHOUT COMPLICATIONS Assessment/Plan LE infected ulcers/cellulitis - improving Continue oral antibiotics, tolerating continue wound care
--- NOTE | 2018-07-14 15:39 | PN ---
Progress Note, Physician Chief Complaint: Pt A&OX3; upset that his medications were not given exactly on time, and wonders why his blood pressure has been so hard to control, saying he has been in the hospital several times over the past 6 monthsand medications have been changed multiple times. History of Present Illness: 62-year-old white male with history of diastolic CHF, HTN, DM, PAD, obesity, hyperlipidemia, presents with progressive dyspnea and cough over the weekend. no CP, but reports epigastric discomfort; compliant with meds. - Current Medication List Current Medications: Active Medications Amoxicillin/Clavulanate Potassium (Augmentin - 500mg Tablet) 1 tab PO BID@0800, 1730 [facility] Last Admin: 07/14/18 12:36 Dose: 1 tab Aspirin (Asa -) 81 mg PO DAILY [facility] Last Admin: 07/14/18 12:36 Dose: 81 mg Bismuth Subsalicylate (Pepto-Bismol Liquid -) 30 ml PO Q12H PRN PRN Reason: DIARRHEA Last Admin: 07/04/18 11:40 Dose: 30 ml Carvedilol (Coreg -) 12.5 mg PO BID [facility] Last Admin: 07/14/18 12:37 Dose: 12.5 mg Clonidine (Catapres -) 0.1 mg PO BID [facility] Last Admin: 07/14/18 12:36 Dose: 0.1 mg Clopidogrel Bisulfate (Plavix -) 75 mg PO DAILY [facility] Last Admin: 07/14/18 12:37 Dose: 75 mg Enalapril Maleate (Vasotec -) 20 mg PO BID [facility] Last Admin: 07/14/18 12:36 Dose: 20 mg Finasteride (Proscar -) 5 mg PO DAILY [facility] Last Admin: 07/14/18 12:37 Dose: 5 mg Glimepiride (Amaryl -) 1 mg PO DAILY@0700 [facility] Last Admin: 07/13/18 07:00 Dose: 1 mg Isosorbide Mononitrate (Imdur -) 120 mg PO DAILY [facility] Last Admin: 07/14/18 12:37 Dose: 120 mg Minoxidil (Lonitin -) 5 mg PO DAILY [facility] Last Admin: 07/14/18 12:37 Dose: 5 mg Spironolactone (Aldactone -) 25 mg PO DAILY [facility] Last Admin: 07/14/18 12:38 Dose: 25 mg - Objective Vital Signs: Vital Signs Temperature 98 F 07/14/18 06:57 Pulse Rate 62 07/14/18 15:34 Respiratory Rate 18 07/14/18 15:34 Blood Pressure 218/78 H 07/14/18 15:34 O2 Sat by Pulse Oximetry (%) 98 07/14/18 09:00 Constitutional: Yes: Anxious, Obese Eyes: Yes: WNL HENT: Yes: WNL Neck: Yes: WNL Cardiovascular: Yes: S1, S2, S4 Respiratory: Yes: WNL Gastrointestinal: Yes: Soft, Abdomen, Obese ...Rectal Exam: Yes: Deferred Genitourinary: No: Anuria Breast(s): Yes: WNL Musculoskeletal: Yes: Joint Stiffness, Muscle Weakness Extremities: Yes: Cool Edema: Yes Edema: LLE: Trace, RLE: Trace Peripheral Pulses WNL: No Peripheral Pulses: Left Doralis Pedis: 1+, Right Dorsalis Pedis: 1+ Integumentary: Yes: Venous Stasis Changes Wound/Incision: Yes: Dressing Dry and Intact Neurological: Yes: Alert, Oriented, Weakness Psychiatric: Yes: Alert, Oriented Labs: CBC, BMP 07/10/18 05:30 07/13/18 06:00 INR, PTT INR 1.13 (0.83-1.09) H 07/01/18 15:25 - ....Imaging Ultrasound: Report Reviewed (ECHO: normal LVEF; diastolic dysfunction; mild pericardial effusion) Problem List - Problems (1) Obesity Code(s): E66.9 - OBESITY, UNSPECIFIED (2) Acute diastolic (congestive) heart failure Code(s): I50.31 - ACUTE DIASTOLIC (CONGESTIVE) HEART FAILURE (3) BPH (benign prostatic hyperplasia) Code(s): N40.0 - BENIGN PROSTATIC HYPERPLASIA WITHOUT LOWER URINRY TRACT SYMP (4) CKD (chronic kidney disease) Code(s): N18.9 - CHRONIC KIDNEY DISEASE, UNSPECIFIED Qualifiers: Chronic kidney disease stage: stage 2 (mild) Qualified Code(s): N18.2 - Chronic kidney disease, stage 2 (mild) (5) HLD (hyperlipidemia) Assessment/Plan: consider adding statin (PAD; HTN;DM). Code(s): E78.5 - HYPERLIPIDEMIA, UNSPECIFIED Qualifiers: Hyperlipidemia type: pure hypercholesterolemia Qualified Code(s): E78.00 - Pure hypercholesterolemia, unspecified; E78.0 - Pure hypercholesterolemia (6) HTN (hypertension) Assessment/Plan: On enalapril, clonidine, carvedilol, minoxidil, isordil, furosemide. Renal US: no definitie pathology (though pt gives hx renal artery stenosis). Being followed by community engagement manager. Spironolactone added; F/u BUN/Cr, electrolytes, BP. Code(s): I10 - ESSENTIAL (PRIMARY) HYPERTENSION Qualifiers: Hypertension type: essential hypertension Qualified Code(s): I10 - Essential (primary) hypertension (7) Type 2 diabetes mellitus Code(s): E11.9 - TYPE 2 DIABETES MELLITUS WITHOUT COMPLICATIONS Qualifiers: Diabetes mellitus mcc insulin use: without mcc use (8) Switchback cardiac risk >20% in next 10 years Code(s): Z91.89 - OTH PERSONAL RISK FACTORS, NOT ELSEWHERE CLASSIFIED
[2018-07-14] MEDS ORDERED: NITROGLYCERIN 25MG/D5W 250ML 25 MG/250 ML ML IVPB ONE (15:43)
[2018-07-14] MEDS ORDERED: NITROGLYCERIN 25MG/D5W 250ML 25 MG/250 ML ML IVPB SCH (15:45)
[2018-07-14] MEDS: BISMUTH SUBSALICYLATE 262 MG/15 ML BTL PO PRN (21:13)
--- NOTE | 2018-07-14 23:12 | PN ---
Progress Note, Physician - Current Medication List Current Medications: Active Medications Amoxicillin/Clavulanate Potassium (Augmentin - 500mg Tablet) 1 tab PO BID@0800, 1730 [facility] Last Admin: 07/14/18 18:58 Dose: 1 tab Aspirin (Asa -) 81 mg PO DAILY [facility] Last Admin: 07/14/18 12:36 Dose: 81 mg Bismuth Subsalicylate (Pepto-Bismol Liquid -) 30 ml PO Q12H PRN PRN Reason: DIARRHEA Last Admin: 07/14/18 21:13 Dose: 30 ml Carvedilol (Coreg -) 12.5 mg PO BID [facility] Last Admin: 07/14/18 22:38 Dose: Not Given Clonidine (Catapres -) 0.1 mg PO BID [facility] Last Admin: 07/14/18 22:38 Dose: Not Given Clopidogrel Bisulfate (Plavix -) 75 mg PO DAILY [facility] Last Admin: 07/14/18 12:37 Dose: 75 mg Enalapril Maleate (Vasotec -) 20 mg PO BID [facility] Last Admin: 07/14/18 22:38 Dose: Not Given Finasteride (Proscar -) 5 mg PO DAILY [facility] Last Admin: 07/14/18 12:37 Dose: 5 mg Glimepiride (Amaryl -) 1 mg PO DAILY@0700 [facility] Last Admin: 07/14/18 07:00 Dose: 1 mg Nitroglycerin/Dextrose (Nitroglycerin 25mg/D5w 250ml) 25 mg in 250 mls @ 6 mls/ hr IVPB TITR [facility]; Protocol Last Titration: 07/14/18 22:36 Dose: 10 mcg/min, 6 mls/hr Isosorbide Mononitrate (Imdur -) 120 mg PO DAILY [facility] Last Admin: 07/14/18 12:37 Dose: 120 mg Minoxidil (Lonitin -) 5 mg PO DAILY [facility] Last Admin: 07/14/18 12:37 Dose: 5 mg Spironolactone (Aldactone -) 25 mg PO DAILY [facility] Last Admin: 07/14/18 12:38 Dose: 25 mg - Objective Vital Signs: Vital Signs Temperature 98 F 07/14/18 22:34 Pulse Rate 62 07/14/18 22:34 Respiratory Rate 18 07/14/18 22:34 Blood Pressure 186/60 H 07/14/18 22:34 O2 Sat by Pulse Oximetry (%) 98 07/14/18 20:32 Labs: CBC, BMP 07/10/18 05:30 07/13/18 06:00 INR, PTT INR 1.13 (0.83-1.09) H 07/01/18 15:25 Problem List - Problems (1) Acute diastolic (congestive) heart failure Code(s): I50.31 - ACUTE DIASTOLIC (CONGESTIVE) HEART FAILURE (2) HLD (hyperlipidemia) Code(s): E78.5 - HYPERLIPIDEMIA, UNSPECIFIED Qualifiers: Hyperlipidemia type: pure hypercholesterolemia Qualified Code(s): E78.00 - Pure hypercholesterolemia, unspecified; E78.0 - Pure hypercholesterolemia (3) CKD (chronic kidney disease) Code(s): N18.9 - CHRONIC KIDNEY DISEASE, UNSPECIFIED Qualifiers: Chronic kidney disease stage: stage 2 (mild) Qualified Code(s): N18.2 - Chronic kidney disease, stage 2 (mild) (4) Type 2 diabetes mellitus Code(s): E11.9 - TYPE 2 DIABETES MELLITUS WITHOUT COMPLICATIONS Qualifiers: Diabetes mellitus shelter insulin use: without delivery specialist use (5) BPH (benign prostatic hyperplasia) Code(s): N40.0 - BENIGN PROSTATIC HYPERPLASIA WITHOUT LOWER URINRY TRACT SYMP
[2018-07-15] MEDS: CARVEDILOL 6.25 MG TABLET (FP) PO SCH ×3 (01:08→21:25)
[2018-07-15] MEDS: cloNIDine HCL 0.1 MG TABLET PO SCH ×2 (01:08→12:02)
[2018-07-15] MEDS: ENALAPRIL MALEATE 10 MG TABLET (FP) PO SCH ×4 (01:09→21:55)
[2018-07-15] MEDS: GLIMEPIRIDE 1 MG TABLET (FP) PO SCH (06:20)
[2018-07-15] MEDS: AMOX TR/POT CLAV 500MG/125MG TABLETS (FP) PO SCH ×2 (08:41→17:53)
--- NOTE | 2018-07-15 11:13 | PN ---
Progress Note, Physician History of Present Illness: Dyspnea, orthopnea, LE edema improving with diuresis, no further vasovagal episodes, attempting to wean clonidine which may account for labile blood pressures and bradyarrhythmia. - Current Medication List Current Medications: Active Medications Amoxicillin/Clavulanate Potassium (Augmentin - 500mg Tablet) 1 tab PO BID@0800, 1730 [facility] Last Admin: 07/15/18 08:41 Dose: 1 tab Aspirin (Asa -) 81 mg PO DAILY [facility] Last Admin: 07/14/18 12:36 Dose: 81 mg Bismuth Subsalicylate (Pepto-Bismol Liquid -) 30 ml PO Q12H PRN PRN Reason: DIARRHEA Last Admin: 07/14/18 21:13 Dose: 30 ml Carvedilol (Coreg -) 12.5 mg PO BID [facility] Last Admin: 07/15/18 01:08 Dose: 12.5 mg Clonidine (Catapres -) 0.1 mg PO BID [facility] Last Admin: 07/15/18 01:08 Dose: 0.1 mg Clopidogrel Bisulfate (Plavix -) 75 mg PO DAILY [facility] Last Admin: 07/14/18 12:37 Dose: 75 mg Enalapril Maleate (Vasotec -) 20 mg PO BID [facility] Last Admin: 07/15/18 01:09 Dose: 20 mg Finasteride (Proscar -) 5 mg PO DAILY [facility] Last Admin: 07/14/18 12:37 Dose: 5 mg Glimepiride (Amaryl -) 1 mg PO DAILY@0700 [facility] Last Admin: 07/15/18 06:20 Dose: 1 mg Nitroglycerin/Dextrose (Nitroglycerin 25mg/D5w 250ml) 25 mg in 250 mls @ 6 mls/ hr IVPB TITR [facility]; Protocol Last Titration: 07/14/18 22:36 Dose: 10 mcg/min, 6 mls/hr Isosorbide Mononitrate (Imdur -) 120 mg PO DAILY [facility] Last Admin: 07/14/18 12:37 Dose: 120 mg Minoxidil (Lonitin -) 5 mg PO DAILY [facility] Last Admin: 07/14/18 12:37 Dose: 5 mg Spironolactone (Aldactone -) 25 mg PO DAILY [facility] Last Admin: 07/14/18 12:38 Dose: 25 mg - Objective Vital Signs: Vital Signs Temperature 98.4 F 07/15/18 04:59 Pulse Rate 61 07/15/18 04:59 Respiratory Rate 18 07/15/18 04:59 Blood Pressure 185/70 H 07/15/18 04:59 O2 Sat by Pulse Oximetry (%) 98 07/14/18 20:32 Constitutional: Yes: No Distress, Calm Neck: Yes: Supple Cardiovascular: Yes: Regular Rate and Rhythm Respiratory: Yes: Regular, CTA Bilaterally Gastrointestinal: Yes: Normal Bowel Sounds, Soft Edema: Yes Edema: LLE: 1+, RLE: 1+ Integumentary: Yes: Venous Stasis Changes Wound/Incision: Yes: Dressing Dry and Intact Labs: CBC, BMP 07/10/18 05:30 07/13/18 06:00 INR, PTT INR 1.13 (0.83-1.09) H 07/01/18 15:25 - ....Imaging EKG: Report Reviewed (Tele: NSR) Problem List - Problems (1) Acute diastolic (congestive) heart failure Code(s): I50.31 - ACUTE DIASTOLIC (CONGESTIVE) HEART FAILURE (2) Hypertensive emergency Code(s): I16.1 - HYPERTENSIVE EMERGENCY (3) Subendocardial ischemia Code(s): I24.8 - OTHER FORMS OF ACUTE ISCHEMIC HEART DISEASE (4) Type 2 diabetes mellitus Code(s): E11.9 - TYPE 2 DIABETES MELLITUS WITHOUT COMPLICATIONS Qualifiers: Diabetes mellitus ad terminal makeup operator insulin use: without ad terminal makeup operator use (5) CKD (chronic kidney disease) Code(s): N18.9 - CHRONIC KIDNEY DISEASE, UNSPECIFIED Qualifiers: Chronic kidney disease stage: stage 2 (mild) Qualified Code(s): N18.2 - Chronic kidney disease, stage 2 (mild) Assessment/Plan 07/02/2018 Echo: Borderline cLVH, normal LV and RV size and fxn, LVEF 60-65%, mild LAE, tr MR, TR, mild pericardial effusions Echo: Mild cLVH, normal LVEF 55%, PFO with L->R shunt 07/02/2018 Renal US: No hydro 05/23/2018 No evidence of renal artery stenosis 1. Acute hypoxic respiratory failure referable to 2. Acute on chronic diastolic heart failure with subendocardial ischemic injury 3. Resistant hypertension 4. Type 2 DM 5. H/o stroke 6. Acute on CKD with proteinuria resolving, no renal artery stenosis on imaging 7. Allergies to calcium channel blockers and hydralazine 8. RSD with RUE crush injury 9. Vasovagal episode P:1. Increase Aldactone 25 bid, vasotec 20 bid given renal recovery 2. Continue ASA 81 qd, Plavix 75 qd, Imdur 120 qd, carvedilol 12.5 bid, decreasing clonidine 0.1 qd and minoxidil 5 qd with uptitration as hemodynamics tolerate 3. Review of records from [facility] and [facility] confirm resistant HTN 4. Studies on renal sympathetic denervation for resistant HTN did not show efficacy 5. Addressed on abortive maneuvers once prodromal sxs have been experienced
--- NOTE | 2018-07-15 11:36 | PN ---
Progress Note, Physician - Current Medication List Current Medications: Active Medications Amoxicillin/Clavulanate Potassium (Augmentin - 500mg Tablet) 1 tab PO BID@0800, 1730 [facility] [place] Last Admin: 07/15/18 08:41 Dose: 1 tab Aspirin (Asa -) 81 mg PO DAILY [facility] Last Admin: 07/14/18 12:36 Dose: 81 mg Bismuth Subsalicylate (Pepto-Bismol Liquid -) 30 ml PO Q12H PRN PRN Reason: DIARRHEA Last Admin: 07/14/18 21:13 Dose: 30 ml Carvedilol (Coreg -) 12.5 mg PO BID [facility] [place] Last Admin: 07/15/18 01:08 Dose: 12.5 mg Clonidine (Catapres -) 0.1 mg PO DAILY [facility] [place] Clopidogrel Bisulfate (Plavix -) 75 mg PO DAILY [facility] Last Admin: 07/14/18 12:37 Dose: 75 mg Enalapril Maleate (Vasotec -) 20 mg PO BID [facility] Last Admin: 07/15/18 01:09 Dose: 20 mg Finasteride (Proscar -) 5 mg PO DAILY [facility] [place] Last Admin: 07/14/18 12:37 Dose: 5 mg Glimepiride (Amaryl -) 1 mg PO DAILY@0700 [facility] [place] Last Admin: 07/15/18 06:20 Dose: 1 mg Nitroglycerin/Dextrose (Nitroglycerin 25mg/D5w 250ml) 25 mg in 250 mls @ 6 mls/ hr IVPB TITR [facility] [place]; Protocol Stop: 07/15/18 13:00 Last Titration: 07/14/18 22:36 Dose: 10 mcg/min, 6 mls/hr Isosorbide Mononitrate (Imdur -) 120 mg PO DAILY [facility] Last Admin: 07/14/18 12:37 Dose: 120 mg Minoxidil (Lonitin -) 5 mg PO DAILY [facility] [place] Last Admin: 07/14/18 12:37 Dose: 5 mg Spironolactone (Aldactone -) 25 mg PO BID [facility] - Objective Vital Signs: Vital Signs Temperature 98.4 F 07/15/18 04:59 Pulse Rate 61 07/15/18 04:59 Respiratory Rate 18 07/15/18 04:59 Blood Pressure 185/70 H 07/15/18 04:59 O2 Sat by Pulse Oximetry (%) 98 07/14/18 20:32 Labs: CBC, BMP 07/10/18 05:30 07/13/18 06:00 INR, PTT INR 1.13 (0.83-1.09) H 07/01/18 15:25
[2018-07-15] MEDS: ISOSORBIDE MONONITRATE 60 MG TAB.SR.24H (FP) PO SCH (11:48)
[2018-07-15] MEDS: CLOPIDOGREL BISULFATE 75 MG TABLET (FP) PO SCH (11:48)
[2018-07-15] MEDS: FINASTERIDE 5 MG TABLET (FP) PO SCH (11:48)
[2018-07-15] MEDS: ASPIRIN 81 MG CHEWABLE TABLETS PO SCH (11:48)
[2018-07-15] MEDS: MINOXIDIL 2.5 MG TABLET PO SCH (11:49)
[2018-07-15] MEDS: SPIRONOLACTONE 25 MG TABLET (FP) PO SCH ×2 (12:02→21:24)
--- NOTE | 2018-07-15 13:16 | PN ---
Progress Note, Physician History of Present Illness: Pt seen and examined at bedside. His bp was elevated and he was started on a nitro drip. - Current Medication List Current Medications: Active Medications Amoxicillin/Clavulanate Potassium (Augmentin - 500mg Tablet) 1 tab PO BID@0800, 1730 [facility] Last Admin: 07/15/18 08:41 Dose: 1 tab Aspirin (Asa -) 81 mg PO DAILY [facility] Last Admin: 07/15/18 11:48 Dose: 81 mg Bismuth Subsalicylate (Pepto-Bismol Liquid -) 30 ml PO Q12H PRN PRN Reason: DIARRHEA Last Admin: 07/14/18 21:13 Dose: 30 ml Carvedilol (Coreg -) 12.5 mg PO BID [facility] Last Admin: 07/15/18 11:48 Dose: 12.5 mg Clonidine (Catapres -) 0.1 mg PO DAILY [facility] Clopidogrel Bisulfate (Plavix -) 75 mg PO DAILY [facility] Last Admin: 07/15/18 11:48 Dose: 75 mg Enalapril Maleate (Vasotec -) 20 mg PO BID [facility] Last Admin: 07/15/18 11:55 Dose: 20 mg Finasteride (Proscar -) 5 mg PO DAILY [facility] Last Admin: 07/15/18 11:48 Dose: 5 mg Glimepiride (Amaryl -) 1 mg PO DAILY@0700 [facility] Last Admin: 07/15/18 06:20 Dose: 1 mg Isosorbide Mononitrate (Imdur -) 120 mg PO DAILY [facility] Last Admin: 07/15/18 11:48 Dose: 120 mg Minoxidil (Lonitin -) 5 mg PO DAILY [facility] Last Admin: 07/15/18 11:49 Dose: 5 mg Spironolactone (Aldactone -) 25 mg PO BID [facility] - [facility] Vital Signs: Vital Signs Temperature 98.4 F 07/15/18 04:59 Pulse Rate 61 07/15/18 04:59 Respiratory Rate 18 07/15/18 04:59 Blood Pressure 185/70 H 07/15/18 04:59 O2 Sat by Pulse Oximetry (%) 98 07/14/18 20:32 Constitutional: Yes: Anxious Eyes: Yes: Conjunctiva Clear HENT: Yes: Atraumatic Cardiovascular: Yes: S1, S2 Respiratory: Yes: CTA Bilaterally Gastrointestinal: Yes: Normal Bowel Sounds, Soft Genitourinary: Yes: WNL Musculoskeletal: Yes: WNL Edema: LLE: 2+, RLE: 2+ Neurological: Yes: Oriented Psychiatric: Yes: Oriented Labs: CBC, BMP 07/10/18 05:30 07/13/18 06:00 INR, PTT INR 1.13 (0.83-1.09) H 07/01/18 15:25 Problem List - Problems (1) CKD (chronic kidney disease) Code(s): N18.9 - CHRONIC KIDNEY DISEASE, UNSPECIFIED Qualifiers: Chronic kidney disease stage: stage 2 (mild) Qualified Code(s): N18.2 - Chronic kidney disease, stage 2 (mild) (2) HTN (hypertension) Code(s): I10 - ESSENTIAL (PRIMARY) HYPERTENSION Qualifiers: Hypertension type: essential hypertension Qualified Code(s): I10 - Essential (primary) hypertension (3) Hypertensive emergency Code(s): I16.1 - HYPERTENSIVE EMERGENCY (4) Type 2 diabetes mellitus Code(s): E11.9 - TYPE 2 DIABETES MELLITUS WITHOUT COMPLICATIONS Qualifiers: Diabetes mellitus chcf insulin use: without chcf use Assessment/Plan Current Medications Generic Name Dose Route Start Last Admin Trade Name Freq PRN Reason Stop Dose Admin Amoxicillin/Clavulanate Potassium 1 tab 07/10/18 17:30 07/15/18 08:41 Augmentin - 500mg Tablet PO 1 tab BID@0800,1730 [facility] Administration Aspirin 81 mg 07/02/18 10:00 07/15/18 11:48 Asa - PO 81 mg DAILY [facility]I Administration Bismuth Subsalicylate 30 ml 07/04/18 09:04 07/14/18 21:13 Pepto-Bismol Liquid - PO 30 ml Q12H PRN Administration DIARRHEA Carvedilol 12.5 mg 07/12/18 22:00 07/15/18 11:48 Coreg - PO 12.5 mg BID [facility]ERI Administration Clonidine 0.1 mg 07/16/18 10:00 Catapres - PO DAILY [facility]I Clopidogrel Bisulfate 75 mg 07/02/18 10:00 07/15/18 11:48 Plavix - PO 75 mg DAILY [facility] Administration Enalapril Maleate 20 mg 07/14/18 07:45 07/15/18 11:55 Vasotec - PO 20 mg BID [facility]I Administration Finasteride 5 mg 07/02/18 10:00 07/15/18 11:48 Proscar - PO 5 mg DAILY [facility]I Administration Glimepiride 1 mg 07/02/18 07:00 07/15/18 06:20 Amaryl - PO 1 mg DAILY@0700 [facility]I Administration Isosorbide Mononitrate 120 mg 07/04/18 09:51 07/15/18 11:48 Imdur - PO 120 mg DAILY [facility] Administration Minoxidil 5 mg 07/05/18 10:45 07/15/18 11:49 Lonitin - PO 5 mg DAILY [facility] Administration Spironolactone 25 mg 07/15/18 22:00 Aldactone - PO BID [facility] Impression 1. CKD vs MIKI 2. HTN - resistant 3. renal artery stenosis 4. DM 5. fluid overload 6. chf dialstolic 7. proteinuria Plan - renal function is improving - cont diuretics - bp meds adjusted, discussed with cardio - titrating down clonidine - torsemide prn - monitor bp closely - will need outpt renal follow up and workup Dr Wise
--- NOTE | 2018-07-15 18:58 | PN ---
Progress Note, Physician - Current Medication List Current Medications: Active Medications Amoxicillin/Clavulanate Potassium (Augmentin - 500mg Tablet) 1 tab PO BID@0800, 1730 [facility] Last Admin: 07/15/18 17:53 Dose: 1 tab Aspirin (Asa -) 81 mg PO DAILY [facility] Last Admin: 07/15/18 11:48 Dose: 81 mg Bismuth Subsalicylate (Pepto-Bismol Liquid -) 30 ml PO Q12H PRN PRN Reason: DIARRHEA Last Admin: 07/14/18 21:13 Dose: 30 ml Carvedilol (Coreg -) 12.5 mg PO BID [facility] Last Admin: 07/15/18 11:48 Dose: 12.5 mg Clonidine (Catapres -) 0.1 mg PO DAILY [facility] Clopidogrel Bisulfate (Plavix -) 75 mg PO DAILY [facility] Last Admin: 07/15/18 11:48 Dose: 75 mg Enalapril Maleate (Vasotec -) 20 mg PO BID [facility] Last Admin: 07/15/18 11:55 Dose: 20 mg Finasteride (Proscar -) 5 mg PO DAILY [facility] Last Admin: 07/15/18 11:48 Dose: 5 mg Glimepiride (Amaryl -) 1 mg PO DAILY@0700 [facility] Last Admin: 07/15/18 06:20 Dose: 1 mg Isosorbide Mononitrate (Imdur -) 120 mg PO DAILY [facility] Last Admin: 07/15/18 11:48 Dose: 120 mg Minoxidil (Lonitin -) 5 mg PO DAILY [facility] Last Admin: 07/15/18 11:49 Dose: 5 mg Spironolactone (Aldactone -) 25 mg PO BID [facility] - Objective Vital Signs: Vital Signs Temperature 98.4 F 07/15/18 04:59 Pulse Rate 60 07/15/18 16:00 Respiratory Rate 18 07/15/18 16:00 Blood Pressure 178/52 H 07/15/18 16:00 O2 Sat by Pulse Oximetry (%) 98 07/15/18 09:00 Constitutional: Yes: No Distress HENT: Yes: Atraumatic Neck: Yes: Supple Cardiovascular: Yes: Regular Rate and Rhythm Respiratory: Yes: CTA Bilaterally Gastrointestinal: Yes: Normal Bowel Sounds Extremities: Yes: Other (b/l lamont chronic wound) Edema: Yes Edema: LLE: 3+, RLE: 3+ Peripheral Pulses WNL: Yes Neurological: Yes: Alert, Oriented Labs: CBC, BMP 07/10/18 05:30 07/13/18 06:00 INR, PTT INR 1.13 (0.83-1.09) H 07/01/18 15:25 Problem List - Problems (1) Dyspnea Assessment/Plan: stable Code(s): R06.00 - DYSPNEA, UNSPECIFIED (2) Acute diastolic (congestive) heart failure Assessment/Plan: monitor bp Code(s): I50.31 - ACUTE DIASTOLIC (CONGESTIVE) HEART FAILURE (3) CKD (chronic kidney disease) Assessment/Plan: monitor renal consult reviewed Code(s): N18.9 - CHRONIC KIDNEY DISEASE, UNSPECIFIED Qualifiers: Chronic kidney disease stage: stage 2 (mild) Qualified Code(s): N18.2 - Chronic kidney disease, stage 2 (mild) (4) Type 2 diabetes mellitus Assessment/Plan: on meds monitor bgms Code(s): E11.9 - TYPE 2 DIABETES MELLITUS WITHOUT COMPLICATIONS Qualifiers: Diabetes mellitus penitentiary insulin use: without termite technician use (5) Hypertensive emergency Assessment/Plan: on meds... getting adjusted by cardiology Code(s): I16.1 - HYPERTENSIVE EMERGENCY (6) Subendocardial ischemia Assessment/Plan: fu troponins on tele Code(s): I24.8 - OTHER FORMS OF ACUTE ISCHEMIC HEART DISEASE
[2018-07-16] MEDS: GLIMEPIRIDE 1 MG TABLET (FP) PO SCH (06:04)
[2018-07-16] MEDS: AMOX TR/POT CLAV 500MG/125MG TABLETS (FP) PO SCH ×2 (08:25→17:11)
[2018-07-16] MEDS ORDERED: PT OWN MED DRAWER 7, Y5N ONE (09:03)
[2018-07-16] MEDS: SPIRONOLACTONE 25 MG TABLET (FP) PO SCH ×2 (09:37→22:08)
[2018-07-16] MEDS: ISOSORBIDE MONONITRATE 60 MG TAB.SR.24H (FP) PO SCH (09:37)
[2018-07-16] MEDS: CLOPIDOGREL BISULFATE 75 MG TABLET (FP) PO SCH (09:38)
[2018-07-16] MEDS: CARVEDILOL 6.25 MG TABLET (FP) PO SCH ×2 (09:38→22:07)
[2018-07-16] MEDS: FINASTERIDE 5 MG TABLET (FP) PO SCH (09:38)
[2018-07-16] MEDS: cloNIDine HCL 0.1 MG TABLET PO SCH (09:38)
[2018-07-16] MEDS: ASPIRIN 81 MG CHEWABLE TABLETS PO SCH (09:39)
[2018-07-16] MEDS: ENALAPRIL MALEATE 10 MG TABLET (FP) PO SCH ×2 (09:40→22:07)
[2018-07-16] MEDS: BISMUTH SUBSALICYLATE 262 MG/15 ML BTL PO PRN (09:45)
[2018-07-16] MEDS: MINOXIDIL 2.5 MG TABLET PO SCH (11:24)
--- NOTE | 2018-07-16 11:55 | PN ---
Progress Note, Physician Chief Complaint: Events noted Not in distress History of Present Illness: Patient was seen and examined. Awake and alert. Chart was reviewed Denies chest pain, SOB or palpitations Hypertensive - Current Medication List Current Medications: Active Medications Amoxicillin/Clavulanate Potassium (Augmentin - 500mg Tablet) 1 tab PO BID@0800, 1730 [facility] Last Admin: 07/16/18 08:25 Dose: 1 tab Aspirin (Asa -) 81 mg PO DAILY [facility] Last Admin: 07/16/18 09:39 Dose: 81 mg Bismuth Subsalicylate (Pepto-Bismol Liquid -) 30 ml PO Q12H PRN PRN Reason: DIARRHEA Last Admin: 07/16/18 09:45 Dose: 30 ml Carvedilol (Coreg -) 12.5 mg PO BID [facility] Last Admin: 07/16/18 09:38 Dose: 12.5 mg Clonidine (Catapres -) 0.1 mg PO DAILY [facility] Last Admin: 07/16/18 09:38 Dose: 0.1 mg Clopidogrel Bisulfate (Plavix -) 75 mg PO DAILY [facility] Last Admin: 07/16/18 09:38 Dose: 75 mg Enalapril Maleate (Vasotec -) 20 mg PO BID [facility] Last Admin: 07/16/18 09:40 Dose: 20 mg Finasteride (Proscar -) 5 mg PO DAILY [facility] Last Admin: 07/16/18 09:38 Dose: 5 mg Glimepiride (Amaryl -) 1 mg PO DAILY@0700 [facility] Last Admin: 07/16/18 06:04 Dose: 1 mg Isosorbide Mononitrate (Imdur -) 120 mg PO DAILY [facility] Last Admin: 07/16/18 09:37 Dose: 120 mg Minoxidil (Lonitin -) 5 mg PO DAILY [facility] Last Admin: 07/16/18 11:24 Dose: 5 mg Spironolactone (Aldactone -) 25 mg PO BID [facility] Last Admin: 07/16/18 09:37 Dose: 25 mg - Objective Vital Signs: Vital Signs Temperature 98.2 F 07/16/18 06:00 Pulse Rate 58 L 07/16/18 06:00 Respiratory Rate 18 07/16/18 06:00 Blood Pressure 211/74 H 07/16/18 06:00 O2 Sat by Pulse Oximetry (%) 98 07/15/18 20:25 Eyes: Yes: PERRL HENT: Yes: Atraumatic Neck: Yes: Supple Cardiovascular: Yes: Regular Rate and Rhythm, S1, S2 Respiratory: Yes: CTA Bilaterally Gastrointestinal: Yes: Normal Bowel Sounds, Soft, Abdomen, Obese. No: Tenderness Edema: Yes Additional Findings/Remarks: - Review of Systems Constitutional: denies: Chills, Fever Cardiovascular: denies: Chest Pain. denies: Palpitations, (+) Shortness of Breath Respiratory: denies: Cough, Hemoptysis, Orthopnea, PND, (+) SOB, SOB on Exertion Gastrointestinal: denies: Diarrhea, Nausea. denies: Abdominal Pain, Constipation, Melena, Rectal Bleeding, Vomiting Genitourinary: denies: Dysuria, Hematuria Musculoskeletal: denies: Back Pain, Joint Pain Neurological: denies: Dizziness, Headache, Seizure, Syncope Problem List - Problems (1) Acute diastolic (congestive) heart failure Code(s): I50.31 - ACUTE DIASTOLIC (CONGESTIVE) HEART FAILURE (2) CKD (chronic kidney disease) Code(s): N18.9 - CHRONIC KIDNEY DISEASE, UNSPECIFIED Qualifiers: Chronic kidney disease stage: stage 2 (mild) Qualified Code(s): N18.2 - Chronic kidney disease, stage 2 (mild) (3) HLD (hyperlipidemia) Code(s): E78.5 - HYPERLIPIDEMIA, UNSPECIFIED Qualifiers: Hyperlipidemia type: pure hypercholesterolemia Qualified Code(s): E78.00 - Pure hypercholesterolemia, unspecified; E78.0 - Pure hypercholesterolemia (4) HTN (hypertension) Code(s): I10 - ESSENTIAL (PRIMARY) HYPERTENSION Qualifiers: Hypertension type: essential hypertension Qualified Code(s): I10 - Essential (primary) hypertension (5) Subendocardial ischemia Code(s): I24.8 - OTHER FORMS OF ACUTE ISCHEMIC HEART DISEASE (6) Type 2 diabetes mellitus Code(s): E11.9 - TYPE 2 DIABETES MELLITUS WITHOUT COMPLICATIONS Qualifiers: Diabetes mellitus intermodal dispatcher insulin use: without chcf use Assessment/Plan 1. Acute hypoxic respiratory failure 2. Acute on chronic diastolic heart failure with subendocardial ischemic injury 3. Resistant hypertension 4. Type 2 DM 5. History of stroke 6. Acute on CKD with proteinuria resolving, no renal artery stenosis on imaging 7. Allergies to calcium channel blockers and Hydralazine 8. Vasovagal episode PLAN: 1. Cotinue Aldactone 25 mg BID and Vasotec 20 mg BID as tolerated 2. Continue ASA 81 mg QD, Plavix 75 mg QD, Imdur 120 mg QD, Carvedilol 12.5 mg BID, Clonidine 0.1 mg QD and Minoxidil 5 mg QD with uptitration as hemodynamics tolerate 3. BP to be further managed Further plans are to follow Rober Melgoza MD
--- NOTE | 2018-07-16 12:28 | PN ---
Progress Note, Physician - Current Medication List Current Medications: Active Medications Amoxicillin/Clavulanate Potassium (Augmentin - 500mg Tablet) 1 tab PO BID@0800, 1730 [facility] Last Admin: 07/16/18 08:25 Dose: 1 tab Aspirin (Asa -) 81 mg PO DAILY [facility] Last Admin: 07/16/18 09:39 Dose: 81 mg Bismuth Subsalicylate (Pepto-Bismol Liquid -) 30 ml PO Q12H PRN PRN Reason: DIARRHEA Last Admin: 07/16/18 09:45 Dose: 30 ml Carvedilol (Coreg -) 12.5 mg PO BID [facility] Last Admin: 07/16/18 09:38 Dose: 12.5 mg Clonidine (Catapres -) 0.1 mg PO DAILY [facility] Last Admin: 07/16/18 09:38 Dose: 0.1 mg Clopidogrel Bisulfate (Plavix -) 75 mg PO DAILY [facility] Last Admin: 07/16/18 09:38 Dose: 75 mg Enalapril Maleate (Vasotec -) 20 mg PO BID [facility] Last Admin: 07/16/18 09:40 Dose: 20 mg Finasteride (Proscar -) 5 mg PO DAILY [facility] Last Admin: 07/16/18 09:38 Dose: 5 mg Glimepiride (Amaryl -) 1 mg PO DAILY@0700 [facility] Last Admin: 07/16/18 06:04 Dose: 1 mg Isosorbide Mononitrate (Imdur -) 120 mg PO DAILY [facility] Last Admin: 07/16/18 09:37 Dose: 120 mg Minoxidil (Lonitin -) 5 mg PO DAILY [facility] Last Admin: 07/16/18 11:24 Dose: 5 mg Spironolactone (Aldactone -) 25 mg PO BID [facility] Last Admin: 07/16/18 09:37 Dose: 25 mg - Objective Vital Signs: Vital Signs Temperature 98.2 F 07/16/18 06:00 Pulse Rate 58 L 07/16/18 06:00 Respiratory Rate 18 07/16/18 06:00 Blood Pressure 211/74 H 07/16/18 06:00 O2 Sat by Pulse Oximetry (%) 98 07/15/18 20:25 Labs: CBC, BMP 07/10/18 05:30 07/13/18 06:00 INR, PTT INR 1.13 (0.83-1.09) H 07/01/18 15:25
--- NOTE | 2018-07-16 13:31 | PN ---
Progress Note, Physician History of Present Illness: Pt seen and examined at bedside. He is awake and alert. He denies shortness of breath. - Current Medication List Current Medications: Active Medications Amoxicillin/Clavulanate Potassium (Augmentin - 500mg Tablet) 1 tab PO BID@0800, 1730 [facility] Last Admin: 07/16/18 08:25 Dose: 1 tab Aspirin (Asa -) 81 mg PO DAILY [facility] Last Admin: 07/16/18 09:39 Dose: 81 mg Bismuth Subsalicylate (Pepto-Bismol Liquid -) 30 ml PO Q12H PRN PRN Reason: DIARRHEA Last Admin: 07/16/18 09:45 Dose: 30 ml Carvedilol (Coreg -) 12.5 mg PO BID [facility] Last Admin: 07/16/18 09:38 Dose: 12.5 mg Clonidine (Catapres -) 0.1 mg PO DAILY [facility] Last Admin: 07/16/18 09:38 Dose: 0.1 mg Clopidogrel Bisulfate (Plavix -) 75 mg PO DAILY [facility] Last Admin: 07/16/18 09:38 Dose: 75 mg Enalapril Maleate (Vasotec -) 20 mg PO BID [facility] Last Admin: 07/16/18 09:40 Dose: 20 mg Finasteride (Proscar -) 5 mg PO DAILY [facility] Last Admin: 07/16/18 09:38 Dose: 5 mg Glimepiride (Amaryl -) 1 mg PO DAILY@0700 [facility] Last Admin: 07/16/18 06:04 Dose: 1 mg Isosorbide Mononitrate (Imdur -) 120 mg PO DAILY [facility] Last Admin: 07/16/18 09:37 Dose: 120 mg Minoxidil (Lonitin -) 5 mg PO DAILY [facility] Last Admin: 07/16/18 11:24 Dose: 5 mg Spironolactone (Aldactone -) 25 mg PO BID [facility] Last Admin: 07/16/18 09:37 Dose: 25 mg - Objective Vital Signs: Vital Signs Temperature 98.2 F 07/16/18 06:00 Pulse Rate 58 L 07/16/18 06:00 Respiratory Rate 18 07/16/18 06:00 Blood Pressure 211/74 H 07/16/18 06:00 O2 Sat by Pulse Oximetry (%) 98 07/15/18 20:25 Constitutional: Yes: Calm Eyes: Yes: Conjunctiva Clear HENT: Yes: Atraumatic Neck: Yes: Supple Cardiovascular: Yes: S1, S2 Respiratory: Yes: CTA Bilaterally Gastrointestinal: Yes: Soft Genitourinary: Yes: WNL Musculoskeletal: Yes: WNL Edema: Yes Edema: LLE: 1+, RLE: 1+ Neurological: Yes: Oriented Psychiatric: Yes: Oriented Labs: CBC, BMP 07/10/18 05:30 07/13/18 06:00 INR, PTT INR 1.13 (0.83-1.09) H 07/01/18 15:25 Problem List - Problems (1) CKD (chronic kidney disease) Code(s): N18.9 - CHRONIC KIDNEY DISEASE, UNSPECIFIED Qualifiers: Chronic kidney disease stage: stage 2 (mild) Qualified Code(s): N18.2 - Chronic kidney disease, stage 2 (mild) (2) HTN (hypertension) Code(s): I10 - ESSENTIAL (PRIMARY) HYPERTENSION Qualifiers: Hypertension type: essential hypertension Qualified Code(s): I10 - Essential (primary) hypertension (3) Hypertensive emergency Code(s): I16.1 - HYPERTENSIVE EMERGENCY (4) Type 2 diabetes mellitus Code(s): E11.9 - TYPE 2 DIABETES MELLITUS WITHOUT COMPLICATIONS Qualifiers: Diabetes mellitus longwall headgate operator insulin use: without retirement use Assessment/Plan Current Medications Generic Name Dose Route Start Last Admin Trade Name Freq PRN Reason Stop Dose Admin Amoxicillin/Clavulanate Potassium 1 tab 07/10/18 17:30 07/16/18 08:25 Augmentin - 500mg Tablet PO 1 tab BID@0800,1730 [facility] Administration Aspirin 81 mg 07/02/18 10:00 07/16/18 09:39 Asa - PO 81 mg DAILY [facility] Administration Bismuth Subsalicylate 30 ml 07/04/18 09:04 07/16/18 09:45 Pepto-Bismol Liquid - PO 30 ml Q12H PRN Administration DIARRHEA Carvedilol 12.5 mg 07/12/18 22:00 07/16/18 09:38 Coreg - PO 12.5 mg BID [facility] Administration Clonidine 0.1 mg 07/16/18 10:00 07/16/18 09:38 Catapres - PO 0.1 mg DAILY [facility] Administration Clopidogrel Bisulfate 75 mg 07/02/18 10:00 07/16/18 09:38 Plavix - PO 75 mg DAILY [facility] Administration Enalapril Maleate 20 mg 07/14/18 07:45 07/16/18 09:40 Vasotec - PO 20 mg BID [facility] Administration Finasteride 5 mg 07/02/18 10:00 07/16/18 09:38 Proscar - PO 5 mg DAILY [facility] Administration Glimepiride 1 mg 07/02/18 07:00 07/16/18 06:04 Amaryl - PO 1 mg DAILY@0700 [facility] Administration Isosorbide Mononitrate 120 mg 07/04/18 09:51 07/16/18 09:37 Imdur - PO 120 mg DAILY [facility] Administration Minoxidil 5 mg 07/05/18 10:45 07/16/18 11:24 Lonitin - PO 5 mg DAILY [facility] Administration Spironolactone 25 mg 07/15/18 22:00 07/16/18 09:37 Aldactone - PO 25 mg BID [facility]I Administration Impression 1. CKD vs MIKI 2. HTN - resistant 3. renal artery stenosis 4. DM 5. fluid overload 6. chf dialstolic 7. proteinuria Plan - check bmp - cont current meds - cont diuretics - titrating down clonidine - monitor bp closely - will need outpt renal follow up and workup Dr Wise
--- NOTE | 2018-07-16 15:28 | PN ---
Progress Note, Physician - Current Medication List Current Medications: Active Medications Amoxicillin/Clavulanate Potassium (Augmentin - 500mg Tablet) 1 tab PO BID@0800, 1730 [facility] Last Admin: 07/16/18 08:25 Dose: 1 tab Aspirin (Asa -) 81 mg PO DAILY [facility] Last Admin: 07/16/18 09:39 Dose: 81 mg Bismuth Subsalicylate (Pepto-Bismol Liquid -) 30 ml PO Q12H PRN PRN Reason: DIARRHEA Last Admin: 07/16/18 09:45 Dose: 30 ml Carvedilol (Coreg -) 12.5 mg PO BID [facility] Last Admin: 07/16/18 09:38 Dose: 12.5 mg Clonidine (Catapres -) 0.1 mg PO DAILY [facility] Last Admin: 07/16/18 09:38 Dose: 0.1 mg Clopidogrel Bisulfate (Plavix -) 75 mg PO DAILY [facility] Last Admin: 07/16/18 09:38 Dose: 75 mg Enalapril Maleate (Vasotec -) 20 mg PO BID [facility] Last Admin: 07/16/18 09:40 Dose: 20 mg Finasteride (Proscar -) 5 mg PO DAILY [facility] Last Admin: 07/16/18 09:38 Dose: 5 mg Glimepiride (Amaryl -) 1 mg PO DAILY@0700 [facility] Last Admin: 07/16/18 06:04 Dose: 1 mg Isosorbide Mononitrate (Imdur -) 120 mg PO DAILY [facility] Last Admin: 07/16/18 09:37 Dose: 120 mg Minoxidil (Lonitin -) 5 mg PO DAILY [facility] Last Admin: 07/16/18 11:24 Dose: 5 mg Spironolactone (Aldactone -) 25 mg PO BID [facility] Last Admin: 07/16/18 09:37 Dose: 25 mg - Objective Vital Signs: Vital Signs Temperature 98.2 F 07/16/18 10:00 Pulse Rate 58 L 07/16/18 10:00 Respiratory Rate 18 07/16/18 10:00 Blood Pressure 195/62 H 07/16/18 10:00 O2 Sat by Pulse Oximetry (%) 98 07/16/18 09:00 Constitutional: Yes: No Distress HENT: Yes: Atraumatic Neck: Yes: Supple Cardiovascular: Yes: Regular Rate and Rhythm Respiratory: Yes: CTA Bilaterally Gastrointestinal: Yes: Normal Bowel Sounds Extremities: Yes: Other (chronic wounds both legs) Edema: Yes Edema: LLE: 3+, RLE: 3+ Neurological: Yes: Alert, Oriented Labs: CBC, BMP 07/10/18 05:30 07/13/18 06:00 INR, PTT INR 1.13 (0.83-1.09) H 07/01/18 15:25 Problem List - Problems (1) Dyspnea Assessment/Plan: stable Code(s): R06.00 - DYSPNEA, UNSPECIFIED (2) Acute diastolic (congestive) heart failure Assessment/Plan: monitor bp Code(s): I50.31 - ACUTE DIASTOLIC (CONGESTIVE) HEART FAILURE (3) CKD (chronic kidney disease) Assessment/Plan: monitor renal consult reviewed Code(s): N18.9 - CHRONIC KIDNEY DISEASE, UNSPECIFIED Qualifiers: Chronic kidney disease stage: stage 2 (mild) Qualified Code(s): N18.2 - Chronic kidney disease, stage 2 (mild) (4) Type 2 diabetes mellitus Assessment/Plan: on meds monitor bgms Code(s): E11.9 - TYPE 2 DIABETES MELLITUS WITHOUT COMPLICATIONS Qualifiers: Diabetes mellitus chcf insulin use: without emt intermediate use (5) Hypertensive emergency Assessment/Plan: on meds... getting adjusted by cardiology Code(s): I16.1 - HYPERTENSIVE EMERGENCY (6) Subendocardial ischemia Assessment/Plan: fu troponins on tele Code(s): I24.8 - OTHER FORMS OF ACUTE ISCHEMIC HEART DISEASE
[2018-07-17] MEDS: GLIMEPIRIDE 1 MG TABLET (FP) PO SCH (06:27)
[2018-07-17 07:29] LABS: BASO % 1.1 % (0-2.0); EOS % 4.3 % (0-4.5); HEMATOCRIT 29.1 % (35.4-49); LYMPH % 19.5 % (8-40); MCH 29.8 pg (25.7-33.7); MCHC 34.4 g/dl (32.0-35.9); MEAN CELL VOLUME 86.6 fl (80-96); MONO % 8.6 % (3.8-10.2); NEUT % 66.5 % (42.8-82.8); PLATELET COUNT 256 K/MM3 (134-434); RBC 3.36 M/mm3 (4.00-5.60); RDW 14.9 % (11.9-15.9); WHITE BLOOD COUNT 5.5 K/mm3 (4.0-10.0)
[2018-07-17 08:02] LABS: ALBUMIN 3.3 g/dl (3.4-5.0); BILIRUBIN,TOTAL 0.6 mg/dL (0.2-1); CALCIUM 8.3 mg/dL (8.5-10.1); CREATININE 1.7 mg/dL (0.55-1.3); POTASSIUM 4.6 mmol/L (3.5-5.1)
[2018-07-17] MEDS: ISOSORBIDE MONONITRATE 60 MG TAB.SR.24H (FP) PO SCH (09:52)
[2018-07-17] MEDS: ASPIRIN 81 MG CHEWABLE TABLETS PO SCH (09:53)
[2018-07-17] MEDS: MINOXIDIL 2.5 MG TABLET PO SCH (09:53)
[2018-07-17] MEDS: cloNIDine HCL 0.1 MG TABLET PO SCH (09:53)
[2018-07-17] MEDS: CLOPIDOGREL BISULFATE 75 MG TABLET (FP) PO SCH (09:53)
[2018-07-17] MEDS: SPIRONOLACTONE 25 MG TABLET (FP) PO SCH (09:53)
[2018-07-17] MEDS: ENALAPRIL MALEATE 10 MG TABLET (FP) PO SCH (09:53)
[2018-07-17] MEDS: CARVEDILOL 6.25 MG TABLET (FP) PO SCH (09:53)
[2018-07-17] MEDS: FINASTERIDE 5 MG TABLET (FP) PO SCH (09:54)
[2018-07-17] MEDS: AMOX TR/POT CLAV 500MG/125MG TABLETS (FP) PO SCH (09:54)
[2018-07-17] MEDS ORDERED: CARVEDILOL 25 MG TABLET (FP) PO SCH (11:52)
--- NOTE | 2018-07-17 11:52 | PN ---
Progress Note, Physician History of Present Illness: Pt seen and examined at bedside. He is awake and alert. He denies shortness of breath. - Current Medication List Current Medications: Active Medications Amoxicillin/Clavulanate Potassium (Augmentin - 500mg Tablet) 1 tab PO BID@0800, 1730 [facility] Last Admin: 07/17/18 09:54 Dose: 1 tab Aspirin (Asa -) 81 mg PO DAILY [facility] Last Admin: 07/17/18 09:53 Dose: 81 mg Bismuth Subsalicylate (Pepto-Bismol Liquid -) 30 ml PO Q12H PRN PRN Reason: DIARRHEA Last Admin: 07/16/18 09:45 Dose: 30 ml Carvedilol (Coreg -) 12.5 mg PO BID [facility] Last Admin: 07/17/18 09:53 Dose: 12.5 mg Clonidine (Catapres -) 0.1 mg PO DAILY [facility] Last Admin: 07/17/18 09:53 Dose: 0.1 mg Clopidogrel Bisulfate (Plavix -) 75 mg PO DAILY [facility] Last Admin: 07/17/18 09:53 Dose: 75 mg Enalapril Maleate (Vasotec -) 20 mg PO BID [facility] Last Admin: 07/17/18 09:53 Dose: 20 mg Finasteride (Proscar -) 5 mg PO DAILY [facility] Last Admin: 07/17/18 09:54 Dose: 5 mg Glimepiride (Amaryl -) 1 mg PO DAILY@0700 [facility] Last Admin: 07/17/18 06:27 Dose: 1 mg Isosorbide Mononitrate (Imdur -) 120 mg PO DAILY [facility] Last Admin: 07/17/18 09:52 Dose: 120 mg Minoxidil (Lonitin -) 5 mg PO DAILY [facility] Last Admin: 07/17/18 09:53 Dose: 5 mg Spironolactone (Aldactone -) 25 mg PO BID [facility] Last Admin: 07/17/18 09:53 Dose: 25 mg - Objective Vital Signs: Vital Signs Temperature 98.0 F 07/17/18 09:00 Pulse Rate 56 L 07/17/18 09:00 Respiratory Rate 20 07/17/18 09:00 Blood Pressure 197/59 H 07/17/18 09:00 O2 Sat by Pulse Oximetry (%) 96 07/17/18 09:00 Constitutional: Yes: Calm Eyes: Yes: Conjunctiva Clear HENT: Yes: Atraumatic Neck: Yes: Supple Cardiovascular: Yes: S1, S2 Respiratory: Yes: CTA Bilaterally Gastrointestinal: Yes: Soft, Abdomen, Obese Genitourinary: Yes: WNL Musculoskeletal: Yes: WNL Edema: Yes Edema: LLE: 1+, RLE: 1+ Neurological: Yes: Oriented Psychiatric: Yes: Oriented Labs: CBC, BMP 07/17/18 05:30 07/17/18 05:30 INR, PTT INR 1.13 (0.83-1.09) H 07/01/18 15:25 Problem List - Problems (1) CKD (chronic kidney disease) Code(s): N18.9 - CHRONIC KIDNEY DISEASE, UNSPECIFIED Qualifiers: Chronic kidney disease stage: stage 2 (mild) Qualified Code(s): N18.2 - Chronic kidney disease, stage 2 (mild) (2) HTN (hypertension) Code(s): I10 - ESSENTIAL (PRIMARY) HYPERTENSION Qualifiers: Hypertension type: essential hypertension Qualified Code(s): I10 - Essential (primary) hypertension (3) Hypertensive emergency Code(s): I16.1 - HYPERTENSIVE EMERGENCY (4) Type 2 diabetes mellitus Code(s): E11.9 - TYPE 2 DIABETES MELLITUS WITHOUT COMPLICATIONS Qualifiers: Diabetes mellitus desk director insulin use: without fci use Assessment/Plan Current Medications Generic Name Dose Route Start Last Admin Trade Name Freq PRN Reason Stop Dose Admin Amoxicillin/Clavulanate Potassium 1 tab 07/10/18 17:30 07/17/18 09:54 Augmentin - 500mg Tablet PO 1 tab BID@0800,1730 [facility] Administration Aspirin 81 mg 07/02/18 10:00 07/17/18 09:53 Asa - PO 81 mg DAILY [facility] Administration Bismuth Subsalicylate 30 ml 07/04/18 09:04 07/16/18 09:45 Pepto-Bismol Liquid - PO 30 ml Q12H PRN Administration DIARRHEA Carvedilol 12.5 mg 07/12/18 22:00 07/17/18 09:53 Coreg - PO 12.5 mg BID [facility] Administration Clonidine 0.1 mg 07/16/18 10:00 07/17/18 09:53 Catapres - PO 0.1 mg DAILY [facility] Administration Clopidogrel Bisulfate 75 mg 07/02/18 10:00 07/17/18 09:53 Plavix - PO 75 mg DAILY [facility] Administration Enalapril Maleate 20 mg 07/14/18 07:45 07/17/18 09:53 Vasotec - PO 20 mg BID [facility] Administration Finasteride 5 mg 07/02/18 10:00 07/17/18 09:54 Proscar - PO 5 mg DAILY [facility] Administration Glimepiride 1 mg 07/02/18 07:00 07/17/18 06:27 Amaryl - PO 1 mg DAILY@0700 [facility] Administration Isosorbide Mononitrate 120 mg 07/04/18 09:51 07/17/18 09:52 Imdur - PO 120 mg DAILY [facility] Administration Minoxidil 5 mg 07/05/18 10:45 07/17/18 09:53 Lonitin - PO 5 mg DAILY [facility] Administration Spironolactone 25 mg 07/15/18 22:00 07/17/18 09:53 Aldactone - PO 25 mg BID [facility] Administration Impression 1. CKD vs MIKI 2. HTN - resistant 3. renal artery stenosis 4. DM 5. fluid overload 6. chf dialstolic 7. proteinuria Plan - pt tapering off clonidine - titrate up coreg as tolerated - cont karlos - cont aldactone - cont minoxidil - will need renal workup after discharge Dr Wise
--- NOTE | 2018-07-17 12:22 | PN ---
Progress Note, Physician History of Present Illness: Dyspnea, orthopnea, LE edema resolved with diuresis, no further vasovagal episodes, weaned off clonidine which may account for labile blood pressures and bradyarrhythmia. - Current Medication List Current Medications: Active Medications Amoxicillin/Clavulanate Potassium (Augmentin - 500mg Tablet) 1 tab PO BID@0800, 1730 [facility] Last Admin: 07/17/18 09:54 Dose: 1 tab Aspirin (Asa -) 81 mg PO DAILY [facility] Last Admin: 07/17/18 09:53 Dose: 81 mg Bismuth Subsalicylate (Pepto-Bismol Liquid -) 30 ml PO Q12H PRN PRN Reason: DIARRHEA Last Admin: 07/16/18 09:45 Dose: 30 ml Carvedilol (Coreg -) 25 mg PO BID [facility] Clopidogrel Bisulfate (Plavix -) 75 mg PO DAILY [facility] Last Admin: 07/17/18 09:53 Dose: 75 mg Enalapril Maleate (Vasotec -) 20 mg PO BID [facility] Last Admin: 07/17/18 09:53 Dose: 20 mg Finasteride (Proscar -) 5 mg PO DAILY [facility] Last Admin: 07/17/18 09:54 Dose: 5 mg Glimepiride (Amaryl -) 1 mg PO DAILY@0700 [facility] Last Admin: 07/17/18 06:27 Dose: 1 mg Isosorbide Mononitrate (Imdur -) 120 mg PO DAILY [facility] Last Admin: 07/17/18 09:52 Dose: 120 mg Minoxidil (Lonitin -) 5 mg PO DAILY [facility] Last Admin: 07/17/18 09:53 Dose: 5 mg Spironolactone (Aldactone -) 25 mg PO BID [facility] Last Admin: 07/17/18 09:53 Dose: 25 mg - Objective Vital Signs: Vital Signs Temperature 98.0 F 07/17/18 09:00 Pulse Rate 56 L 07/17/18 09:00 Respiratory Rate 20 07/17/18 09:00 Blood Pressure 197/59 H 07/17/18 09:00 O2 Sat by Pulse Oximetry (%) 96 07/17/18 09:00 Constitutional: Yes: No Distress, Calm Neck: Yes: Supple Cardiovascular: Yes: Regular Rate and Rhythm Respiratory: Yes: Regular, Diminished Gastrointestinal: Yes: Normal Bowel Sounds, Soft, Abdomen, Obese Edema: Yes Integumentary: Yes: Venous Stasis Changes Wound/Incision: Yes: Dressing Dry and Intact Labs: CBC, BMP 07/17/18 05:30 07/17/18 05:30 INR, PTT INR 1.13 (0.83-1.09) H 07/01/18 15:25 Problem List - Problems (1) Acute diastolic (congestive) heart failure Code(s): I50.31 - ACUTE DIASTOLIC (CONGESTIVE) HEART FAILURE (2) Hypertensive emergency Code(s): I16.1 - HYPERTENSIVE EMERGENCY (3) Subendocardial ischemia Code(s): I24.8 - OTHER FORMS OF ACUTE ISCHEMIC HEART DISEASE (4) Type 2 diabetes mellitus Code(s): E11.9 - TYPE 2 DIABETES MELLITUS WITHOUT COMPLICATIONS Qualifiers: Diabetes mellitus dry pan operator insulin use: without dry pan operator use (5) CKD (chronic kidney disease) Code(s): N18.9 - CHRONIC KIDNEY DISEASE, UNSPECIFIED Qualifiers: Chronic kidney disease stage: stage 2 (mild) Qualified Code(s): N18.2 - Chronic kidney disease, stage 2 (mild) Assessment/Plan 07/02/2018 Echo: Borderline cLVH, normal LV and RV size and fxn, LVEF 60-65%, mild LAE, tr MR, TR, mild pericardial effusions Echo: Mild cLVH, normal LVEF 55%, PFO with L->R shunt 07/02/2018 Renal US: No hydro 05/23/2018 No evidence of renal artery stenosis 1. Acute hypoxic respiratory failure referable to 2. Acute on chronic diastolic heart failure with subendocardial ischemic injury 3. Resistant hypertension 4. Type 2 DM 5. H/o stroke 6. Acute on CKD with proteinuria resolving, no renal artery stenosis on imaging 7. Allergies to calcium channel blockers and hydralazine 8. RSD with RUE crush injury 9. Vasovagal episode P:1. Continue Aldactone 25 bid, vasotec 20 bid given renal recovery 2. Continue ASA 81 qd, Plavix 75 qd, Imdur 120 qd, increased carvedilol 25 bid, weaned off clonidine and minoxidil 5 qd with uptitration as hemodynamics tolerate 3. Review of records from [facility] and [facility] confirm resistant HTN 4. Studies on renal sympathetic denervation for resistant HTN did not show efficacy 5. Addressed on abortive maneuvers once prodromal sxs have been experienced
--- NOTE | 2018-07-17 13:40 | PN ---
Progress Note, Physician - Current Medication List Current Medications: Active Medications Amoxicillin/Clavulanate Potassium (Augmentin - 500mg Tablet) 1 tab PO BID@0800, 1730 [facility] Last Admin: 07/17/18 09:54 Dose: 1 tab Aspirin (Asa -) 81 mg PO DAILY [facility] Last Admin: 07/17/18 09:53 Dose: 81 mg Bismuth Subsalicylate (Pepto-Bismol Liquid -) 30 ml PO Q12H PRN PRN Reason: DIARRHEA Last Admin: 07/16/18 09:45 Dose: 30 ml Carvedilol (Coreg -) 25 mg PO BID [facility] Clopidogrel Bisulfate (Plavix -) 75 mg PO DAILY [facility] Last Admin: 07/17/18 09:53 Dose: 75 mg Enalapril Maleate (Vasotec -) 20 mg PO BID [facility] Last Admin: 07/17/18 09:53 Dose: 20 mg Finasteride (Proscar -) 5 mg PO DAILY [facility] Last Admin: 07/17/18 09:54 Dose: 5 mg Glimepiride (Amaryl -) 1 mg PO DAILY@0700 [facility] Last Admin: 07/17/18 06:27 Dose: 1 mg Isosorbide Mononitrate (Imdur -) 120 mg PO DAILY [facility] Last Admin: 07/17/18 09:52 Dose: 120 mg Minoxidil (Lonitin -) 5 mg PO DAILY [facility] Last Admin: 07/17/18 09:53 Dose: 5 mg Spironolactone (Aldactone -) 25 mg PO BID [facility] Last Admin: 07/17/18 09:53 Dose: 25 mg - Objective Vital Signs: Vital Signs Temperature 98.2 F 07/17/18 12:45 Pulse Rate 56 L 07/17/18 12:45 Respiratory Rate 18 07/17/18 12:45 Blood Pressure 140/53 L 07/17/18 12:45 O2 Sat by Pulse Oximetry (%) 96 07/17/18 09:00 Labs: CBC, BMP 07/17/18 05:30 07/17/18 05:30 INR, PTT INR 1.13 (0.83-1.09) H 07/01/18 15:25
[2018-07-17 14:32] VITALS: BP 119/46; PULSE 50; TEMP 98
--- NOTE | 2018-07-17 15:25 | DS ---
Physical Examination Vital Signs: Vital Signs Temperature 98.0 F 07/17/18 14:31 Pulse Rate 50 L 07/17/18 14:31 Respiratory Rate 18 07/17/18 14:31 Blood Pressure 119/46 L 07/17/18 14:31 O2 Sat by Pulse Oximetry (%) 96 07/17/18 09:00 Constitutional: Yes: No Distress HENT: Yes: Atraumatic Neck: Yes: Supple Cardiovascular: Yes: Regular Rate and Rhythm Respiratory: Yes: CTA Bilaterally Gastrointestinal: Yes: Normal Bowel Sounds Extremities: Yes: Other (b/l lamont chronic wound) Edema: Yes Edema: LLE: 3+, RLE: 3+ Neurological: Yes: Alert, Oriented Labs: CBC, BMP 07/17/18 05:30 07/17/18 05:30 Discharge Summary Reason For Visit: CHF Current Active Problems Acute diastolic (congestive) heart failure (Acute) BPH (benign prostatic hyperplasia) (Acute) CKD (chronic kidney disease) (Acute) Dyspnea (Acute) [place] cardiac risk >20% in next 10 years (Acute) HLD (hyperlipidemia) (Acute) HTN (hypertension) (Acute) Hypertensive emergency (Acute) Obesity (Acute) Subendocardial ischemia (Acute) Type 2 diabetes mellitus (Acute) Condition: Guarded - Instructions Disposition: HOME - Home Medications Comprehensive Discharge Medication List: Ambulatory Orders Aspirin 81 mg PO DAILY 07/01/18 Clopidogrel Bisulfate [Clopidogrel] 75 mg PO DAILY 07/01/18 Finasteride 5 mg PO DAILY 07/01/18 Glimepiride 1 mg PO DAILY 07/01/18 Carvedilol [Coreg -] 25 mg PO BID #60 tablet 07/08/18 Finasteride [Proscar -] 5 mg PO DAILY #30 tablet 07/08/18 Isosorbide Mononitrate [Imdur -] 120 mg PO DAILY #90 tab.sr.24h 07/08/18 Minoxidil [Minoxidil -] 5 mg PO DAILY #60 tablet 07/08/18 Amox-Tr/K Cl [Augmentin 500-125mg Tablet -] 1 tab PO BID@0800,1730 #14 tablet Enalapril Maleate [Vasotec -] 20 mg PO BID #60 tablet 07/17/18 Spironolactone [Aldactone -] 25 mg PO BID #60 tablet 07/17/18 dc home fu pmd/cardiology
[2018-07-17 21:52] VITALS: BMI 36.7
== END 2018-07-17 17:38 | disposition home or self-care (01) | DRG 291 ==
LOC: JER 14:42 → JERBED 16:46 → J4W 21:44
PROVIDERS: ADMIT Internal Medicine; ATTEND Internal Medicine
PROC: 5A09557 Assistance with Respiratory Ventilation, Greater than 96 Consecutive Hours, Continuous Positive Airway Pressure (ICD-10-PCS; principal; 2018-07-01)
DX: I13.0 Hypertensive heart and chronic kidney disease with heart failure and stage 1 through stage 4 chronic kidney disease, or unspecified chronic kidney disease (principal); I50.33 Acute on chronic diastolic (congestive) heart failure; J96.01 Acute respiratory failure with hypoxia; I31.3 Pericardial effusion (noninflammatory); I16.1 Hypertensive emergency; I24.8 Other forms of acute ischemic heart disease; N17.9 Acute kidney failure, unspecified; L97.829 Non-pressure chronic ulcer of other part of left lower leg with unspecified severity; L97.819 Non-pressure chronic ulcer of other part of right lower leg with unspecified severity; L03.116 Cellulitis of left lower limb; L03.115 Cellulitis of right lower limb; Z79.84 Long term (current) use of oral hypoglycemic drugs; E11.22 Type 2 diabetes mellitus with diabetic chronic kidney disease; N18.2 Chronic kidney disease, stage 2 (mild); Z86.73 Personal history of transient ischemic attack (TIA), and cerebral infarction without residual deficits; I70.1 Atherosclerosis of renal artery; N40.0 Benign prostatic hyperplasia without lower urinary tract symptoms; E66.9 Obesity, unspecified; Z68.36 Body mass index [BMI] 36.0-36.9, adult; I87.8 Other specified disorders of veins; Z87.891 Personal history of nicotine dependence
CPT/HCPCS: 36415; 71045-TC-FY; 76775-TC; 80048; 80053; 80061; 81003; 82550; 82553; 82570; 82803; 82962; 83036; 83721; 83735; 83880; 84156; 84443; 84484; 85025; 85610; 87070; 87186; 87205; 93005; 93010; 93306-TC; 94660; 97116-GP; 97161-GP; 99284-25; J0735; J1644

== ENCOUNTER 2018-08-09 20:27 | Inpatient (IN) | payer OTHER | END 2018-08-15 18:22 | disposition home or self-care (01) | LOC: J4W 08-10 00:46 → JER 20:27 → JERBED 21:54 ==